=== PATIENT | male | born 1955 | race Caucasian/White ===

== ENCOUNTER → 2016-07-22 | Outpatient (CLI) | payer OTHER ==
[~2016-07-22] MED LIST: ALBUMIN 25% 100 ML SOLN IV ONE; LIDOCAINE 1% 30 ML SDV ONE; NA BICARBONATE 50 MEQ/50 ML VIAL ONE; PROPOFOL 200 MG/20 ML VIAL ONE
--- NOTE | 2016-07-22 19:14 | US ---
Pathology shows no evidence of malignancy.
== END ==
LOC: FIMAGING 12:54
PROVIDERS: ATTEND Internal Medicine
PROC: 0W9F3ZZ Drainage of Abdominal Wall, Percutaneous Approach (ICD-10-PCS; principal; 2016-07-22)
DX: R18.8 Other ascites (principal); D69.6 Thrombocytopenia, unspecified
CPT/HCPCS: 49083; 88161; J2704; P9047

== ENCOUNTER 2016-08-02 14:47 | Emergency (ER) | payer OTHER ==
[2016-08-02 15:09] VITALS: RESP 18
--- NOTE | 2016-08-02 16:44 | EDPHY ---
H & P Time Seen by Provider: 08/02/16 16:44 HPI/ROS: CHIEF COMPLAINT: I need my stomach drained HISTORY OF PRESENT ILLNESS: This 60-year-old man has cirrhosis and recently had a paracentesis on July 22. 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 He presents to the emergency department with severe abdominal distention resulting in moderate discomfort and difficulty breathing due to pressure on his diaphragm. He denies any cesilia abdominal pain or fever or melena. Symptoms are similar worse than when he was drained 11 days ago. REVIEW OF SYSTEMS: Eye: no change in vision ENT: no sore throat Cardiac: no chest pain or syncope Pulmonary: No cough or hemoptysis. Normal sentences. Abdomen: No vomiting or diarrhea. Musculoskeletal: no back pain Skin: no rash Neuro: no headache Constitutional: no fever : no urinary symptoms A comprehensive 10 point review of systems is otherwise negative aside from elements mentioned in the history of present illness. PAST MEDICAL HISTORY: Discharge summary dated 07/08/2016 reviewed by myself. Includes ascites secondary to cryptogenic cirrhosis, insulin-dependent diabetes , chronic coagulopathy and pancytopenia, history of esophageal varices. Social history: Here with his spouse. General Appearance: Alert and conversant, cooperative. Eyes: No scleral icterus. ENT, Mouth: Normal mucous membranes. Respiratory: Normal respiratory effort, breath sounds equal, lungs are clear to auscultation. Cardiovascular: Regular rate and rhythm. Gastrointestinal: Abdomen is massively distended with probable ascites but without rebound or guarding. Nontender. Neurological: Alert and oriented x3. Normally conversant. Face symmetric, normal movement and sensation in all extremities. Skin: Warm and dry, no rashes. Musculoskeletal: No peripheral edema and no joint swelling. Psychiatric: Not agitated. Emergency Department course/MDM: Labs performed to include coags and CBC. Platelet count noted 46,000. Patient would like to have paracentesis and then be discharged. Clinically does not have abdominal pain or tenderness or elevated temperature to suggest bacterial peritonitis. White blood cell count is similar to previous. Discussed with Dr. Livingston, [id number]. Patient had approximately [address] Livingston; he received 50 g of IV albumin afterwards at her recommendation, and then was discharged. Smoking Status: Former smoker Constitutional: Initial Vital Signs Temperature (C) 36.5 C 08/02/16 15:06 Heart Rate 95 08/02/16 15:06 Respiratory Rate 18 08/02/16 15:06 Blood Pressure 154/67 H 08/02/16 15:06 O2 Sat (%) 98 08/02/16 15:06 O2 Delivery Mode Room Air Allergies/Adverse Reactions: No Known Allergies Allergy (Verified 08/02/16 15:05) Home Medications: Medication Instructions Recorded Ferrous Sulfate [Ferrous Sulf 325 325 mg PO DAILY 12/16/15 MG (*)] Furosemide [Lasix 80 MG (*)] 80 mg PO DAILY 12/16/15 Pantoprazole Sodium [Protonix 40mg 20 mg PO BID 12/16/15 (*)] Ranitidine HCl [Zantac] 150 mg PO BID 12/16/15 Simvastatin [Zocor] 40 mg PO HS 12/16/15 Spironolactone [Aldactone 25 MG 150 mg PO DAILY 12/16/15 (*)] Venlafaxine Xr [Effexor Xr 75MG 75 mg PO DAILY 12/16/15 (*)] Propranolol HCl [Inderal 20mg (*)] 20 mg PO BID 07/04/16 Insulin Glargine [Lantus 100 70 units SC TID #1 ml 07/08/16 UNITS/ML (*)] Insulin Lispro [humALOG LISPRO 100 60 unit SC TIDMEAL #1 unit 07/08/16 units/ml (*)] Medical Decision Making Differential Diagnosis: Differential considered including but not limited to bowel obstruction, ascites , bacterial peritonitis, anasarca. - Data Points Laboratory Results: Laboratory Results 08/02/16 16:50 08/02/16 16:58 08/02/16 08/02/16 08/02/16 17:20 17:00 16:58 WBC RBC Hgb Hct MCV MCH MCHC RDW Plt Count MPV Neut % (Auto) Lymph % (Auto) [place] % (Auto) Eos % (Auto) Baso % (Auto) Nucleat RBC Rel Count Absolute Neuts (auto) Absolute Lymphs (auto) Absolute Monos (auto) Absolute Eos (auto) Absolute Basos (auto) Absolute Nucleated RBC Immature Gran % Immature Gran # Platelet Estimate PT 17.7 H SEC (12.0-15.0) INR 1.46 H (0.83-1.16) APTT 23.6 SEC (23.0-38.0) Sodium 136 mEq/L (134-144) Potassium 4.2 mEq/L (3.5-5.2) Chloride 101 mEq/L (97-110) Carbon Dioxide 23 mEq/l (22-31) Anion Gap 12 mEq/L (8-16) BUN 17 mg/dL (7-23) Creatinine 0.8 mg/dL (0.7-1.3) Estimated GFR > 60 Glucose 310 H mg/dL (70-100) Calcium 8.8 mg/dL (8.5-10.4) 08/02/16 16:50 WBC 2.61 L 10^3/uL (3.80-9.50) RBC 3.29 L 10^6/uL (4.40-6.38) Hgb 10.7 L g/dL (13.7-17.5) Hct 33.0 L % (40.0-51.0) MCV 100.3 H fL (81.5-99.8) MCH 32.5 pg (27.9-34.1) MCHC 32.4 g/dL (32.4-36.7) RDW 15.3 H % (11.5-15.2) Plt Count 46 L 10^3/uL (150-400) MPV 11.4 fL (8.7-11.7) Neut % (Auto) 56.3 % (39.3-74.2) Lymph % (Auto) 23.8 % (15.0-45.0) [place] % (Auto) 11.5 % (4.5-13.0) Eos % (Auto) 6.9 % (0.6-7.6) Baso % (Auto) 1.1 % (0.3-1.7) Nucleat RBC Rel Count 0.0 % (0.0-0.2) Absolute Neuts (auto) 1.47 L 10^3/uL (1.70-6.50) Absolute Lymphs (auto) 0.62 L 10^3/uL (1.00-3.00) Absolute Monos (auto) 0.30 10^3/uL (0.30-0.80) Absolute Eos (auto) 0.18 10^3/uL (0.03-0.40) Absolute Basos (auto) 0.03 10^3/uL (0.02-0.10) Absolute Nucleated RBC 0.00 10^3/uL (0-0.01) Immature Gran % 0.4 % (0.0-1.1) Immature Gran # 0.01 10^3/uL (0.00-0.10) Platelet Estimate DECREASED L (ADEQ) PT INR APTT Sodium Potassium Chloride Carbon Dioxide Anion Gap BUN Creatinine Estimated GFR Glucose Calcium Medications Given: Discontinued Medications Albumin Human (Flexbumin 25 % (Premix)) 200 mls @ 0 mls/hr IV ONCE ONE PRN Reason: As Directed Stop: 08/02/16 18:19 Last Admin: 08/02/16 19:45 Dose: 200 mls Departure - Departure Disposition: Home, Routine, Self-Care Clinical Impression: Ascites Qualifiers: Ascites type: other type Qualifier Code: (R18.8) Other ascites Condition: Good Instructions: Ascites (ED) Referrals: Curt Lawler [Primary Care Provider] - As per Instructions
[2016-08-02 17:05] LABS: % IMMATURE GRANULYOCYTES 0.4 % (0.0-1.1); ABSOLUTE IMMATURE GRANULOCYTES 0.01 10^3/uL (0.00-0.10); ADD DIFF? NO; ADD MORPH? NO; ADD SCAN? NO; ATYPICAL LYMPHOCYTE FLAG 30 (0-99); FRAGMENT RBC FLAG 0 (0-99); HEMOGLOBIN 10.7 g/dL (13.7-17.5); LEFT SHIFT FLG 0 (0-99); LIPEMIA HEMOLYSIS FLAG 80 (0-99); MEAN CELL HEMOGLOBIN 32.5 pg (27.9-34.1); MEAN CELL HEMOGLOBIN CONCENTR. 32.4 g/dL (32.4-36.7); MEAN CELL VOLUME 100.3 fL (81.5-99.8); MEAN PLATELET VOLUME 11.4 fL (8.7-11.7); PLATELET CLUMPS FLAG 10 (0-99); RED BLOOD CELL COUNT 3.29 10^6/uL (4.40-6.38); RED CELL DISTRIBUTION WIDTH 15.3 % (11.5-15.2)
[2016-08-02 17:06] LABS: PLATELET COUNT 46 10^3/uL (150-400)
[2016-08-02 17:38] LABS: ANION GAP 12 mEq/L (8-16); CALCIUM 8.8 mg/dL (8.5-10.4); CARBON DIOXIDE 23 mEq/l (22-31); CHLORIDE 101 mEq/L (97-110); CREATININE 0.8 mg/dL (0.7-1.3); GLOMERULAR FILTRATION RATE > 60; GLUCOSE 310 mg/dL (70-100); POTASSIUM 4.2 mEq/L (3.5-5.2); SODIUM 136 mEq/L (134-144)
[2016-08-02 17:51] LABS: INR 1.46 (0.83-1.16); PROTIME(PATIENT) 17.7 SEC (12.0-15.0)
[2016-08-02 18:01] LABS: PLATELET ESTIMATE DECREASED (ADEQ)
[2016-08-02] MEDS ORDERED: ALBUMIN 25% 200 ML IV ONE (18:18)
[2016-08-02 20:28] VITALS: BP 141/70; PULSE 85; TEMP 99.3; O2SAT 94
--- NOTE | 2016-08-03 09:12 | US ---
Ultrasound-Guided Paracentesis INDICATION: Large volume recurrent paracentesis needed. Informed consent: Obtained from the patient. Risks and benefits were discussed. Cross Cutting Measure: Patient's current list of medications including all known prescriptions, over -the-counters, herbals, and vitamin/mineral/dietary supplements are reviewed. Medications' name, dos age, frequency, and route of administration are confirmed. Patient is a nonsmoker. Prophylactic Antibiotic: Cefazolin was not ordered and administered for antimicrobial prophylaxis be cause it was not medically necessary. VTE Prophylaxis: There is not an order for VTE prophylaxis to be given within 24 hours of the proced ure end time. VTE prophylaxis was not given because it was not medically necessary. Technique: Patient is placed in supine position. A "timeout" procedure was performed to identify th e correct patient and the correct procedure. 1% Xylocaine was used for local anesthetic. All eleme nts of maximal sterile barrier technique including cap, mask, sterile gown, sterile gloves, large erin rile sheet, hand hygiene, and 2% chlorhexidine for cutaneous antisepsis, followed. Ultrasound evaluation of potential access site was performed. A permanent recording was created for t he patient's record. When ultrasound is used, sterile gel and probe covers are used. Right lower quadrant approach is chosen. A 6-Syrian Yueh needle was inserted into the ascites under u ltrasound guidance. 6.5 liters of milky cloudy fluid were aspirated. Patient tolerated the procedure well. Post paracentesis ultrasound does not show any residual fluid. IMPRESSION: Right lower quadrant paracentesis done, yielding 6.5 liters.
== END 2016-08-02 20:28 | disposition home or self-care (01) ==
DX: R18.8 Other ascites (principal); E11.9 Type 2 diabetes mellitus without complications; Z79.4 Long term (current) use of insulin; Z87.891 Personal history of nicotine dependence
CPT/HCPCS: 96365; P9047

== ENCOUNTER → 2016-08-16 | Outpatient (CLI) | payer OTHER ==
[~2016-08-16] MED LIST changes: -LIDOCAINE 1% 30 ML SDV ONE; -PROPOFOL 200 MG/20 ML VIAL ONE
--- NOTE | 2016-08-16 13:16 | US ---
Ultrasound-Guided Paracentesis at 1045 hours History: Ascites. Cirrhosis. R 18.8 Consent: After the risks, benefits, and alternatives of ultrasound-guided paracentesis were explained to the patient and all questions were answered, witnessed informed consent was obtained for ultrasou nd-guided paracentesis. Timeout performed. Procedure: Ultrasound guidance was utilized to locate a large pocket of ascites in the right lower qu adrant of the abdomen. Skin was prepped with ChloraPrep solution. Lidocaine with bicarbonate was use d for local anesthesia. Then, a 5-Upper Sorbian ReliSen catheter was advanced with ultrasound guidance into the ascites. The needle was removed. Catheter was left in place while 7800 mL of yellow ascites were re moved. Catheter removed at the end of the procedure. Patient was given intravenous albumin after the procedure. Discharge instructions were given. Patient tolerated the procedure well without immediate complicatio ns. Impression: Successful ultrasound-guided paracentesis. 7.8 L of ascites removed. Crosscutting Measure #226: Current tobacco user: NO..
== END ==
LOC: FIMAGING 09:14
PROVIDERS: ATTEND Internal Medicine
PROC: 0W9G3ZZ Drainage of Peritoneal Cavity, Percutaneous Approach (ICD-10-PCS; principal; 2016-08-16)
DX: R18.8 Other ascites (principal)
CPT/HCPCS: 49083; P9047

== ENCOUNTER → 2016-08-27 | Outpatient (CLI) | payer OTHER ==
[~2016-08-27] MED LIST changes: +ALBUMIN 25% 50 ML SOLN IV ONE; +LIDOCAINE 1% 30 ML SDV ONE
== END ==
LOC: FIMAGING 08:42
PROVIDERS: ATTEND Internal Medicine
DX: R18.8 Other ascites (principal); I81 Portal vein thrombosis; R06.02 Shortness of breath; K74.60 Unspecified cirrhosis of liver; R16.2 Hepatomegaly with splenomegaly, not elsewhere classified
CPT/HCPCS: 76705; 93975; P9047

== ENCOUNTER → 2016-09-10 | Outpatient (CLI) | payer OTHER ==
[2016-09-10 14:13] VITALS: BP 144/70; PULSE 85; RESP 20; TEMP 97.5; O2SAT 95
--- NOTE | 2016-09-10 14:47 | EDPHY ---
ED Progress Note Narrative: 60-year-old male presents to the emergency department with his . The patient has a history of multiple medical problems including cryptogenic cirrhosis requiring paracentesis. The patient typically has paracentesis about every 2 weeks. He last had a paracentesis on August 27, 2016 and had over 7 L drained. The patient had blood drawn yesterday as he typically does prior to having a paracentesis. The patient has not had any fevers or chills. They were waiting over in the imaging waiting room and someone told him that his platelet count was too low to have the paracentesis. He was sent to the emergency department for evaluation. Upon arrival in the emergency department I did review this patient's laboratory studies from yesterday. [place] [address]. The last time he had a paracentesis 2 weeks ago it was 38,000. He is chronically thrombocytopenic. His hematocrit was 29% and he has been chronically anemic. His sodium was normal yesterday. His INR was 1.48. I spoke with Dr. Livingston who was aware of this patient and has perform paracentesis on this patient in the past. She is happy to take him for paracentesis today. She asked that he go back to the imaging waiting room and they will do the paracentesis now. I explained to the patient that upon reviewing his laboratory studies, [place] [address]. Dr. Livingston is comfortable performing paracentesis now. The patient and his verbalized understanding and agreed. He will be depart from the emergency department. Laboratory studies were not repeated in the emergency department. This was discussed with Dr. Garcia, secondary supervising physician, who did not evaluate the patient but agrees with plan of discharging from the emergency department and going directly to ultrasound for paracentesis.
== END ==
LOC: FIMAGING 13:22 → EDSTATUS 14:00 → FIMAGING 14:48
PROVIDERS: ATTEND Emergency Medicine
PROC: 0D9W3ZZ Drainage of Peritoneum, Percutaneous Approach (ICD-10-PCS; principal; 2016-09-10)
DX: K74.69 Other cirrhosis of liver (principal); R18.8 Other ascites

== ENCOUNTER → 2016-09-17 | Outpatient (CLI) | payer OTHER ==
[~2016-09-17] MED LIST changes: -ALBUMIN 25% 50 ML SOLN IV ONE; -LIDOCAINE 1% 30 ML SDV ONE
== END ==
LOC: FIMAGING 12:24
PROVIDERS: ATTEND Internal Medicine
PROC: 0W9G3ZZ Drainage of Peritoneal Cavity, Percutaneous Approach (ICD-10-PCS; principal; 2016-09-17)
DX: R18.8 Other ascites (principal); E11.9 Type 2 diabetes mellitus without complications; I10 Essential (primary) hypertension; K74.60 Unspecified cirrhosis of liver
CPT/HCPCS: 49083; P9047

== ENCOUNTER 2016-09-24 14:08 | Emergency (ER) | payer OTHER ==
--- NOTE | 2016-09-24 14:37 | EDPHY ---
H & P Time Seen by Provider: 09/24/16 14:20 HPI/ROS: CHIEF COMPLAINT: "I need a pericentesis" HISTORY OF PRESENT ILLNESS: The patient is a 60-year-old male with multiple medical problems including cryptogenic cirrhosis. This requires recurrent paracentesis. His last paracentesis was 09/17/2016. He has a "standing order every 2 weeks." Patient feels as though he has had increasing shortness of breath and he is not tolerating it. He needs paracentesis sooner. He reports that his platelets are always low. He denies any fevers or chills. No nausea or vomiting. Patient has a chronic nonproductive cough that is unchanged REVIEW OF SYSTEMS: My complete review of systems is negative except as mentioned in the HPI. Past Medical/Surgical History: Includes coronary artery disease, diabetes, hypertension, hyperlipidemia, cryptogenic cirrhosis, esophageal variceal bleeding Past surgical history: Includes esophageal banding, stent placement Social history: The patient is here with his . He does not smoke. He does not drink alcohol. Smoking Status: Former smoker Physical Exam: Vitals noted. 151/67, 84, 16, 37.5, 98% on room air GENERAL: No acute distress, alert. HEENT: Eyes normal to inspection, no jaundice, normal pharynx, no signs of dehydration. NECK: No thyromegaly, no lymphadenopathy, supple. RESPIRATORY: Clear to auscultation bilaterally, no rales, rhonchi or wheezing. CVS: Regular rate and rhythm, no rubs, murmurs, or gallops. ABDOMEN: Soft, distended, no organomegaly. No focal tenderness to palpation BACK: Normal to inspection, no CVA tenderness. SKIN: Normal color, no rash, warm, dry. No pallor. EXTREMITIES: Mild bilateral pedal edema, no calf tenderness, no Homans sign or cords, no joint swelling. NEURO/PSYCH: Alert and oriented x3, normal mood and affect, normal motor sensory exam. Constitutional: Initial Vital Signs Temperature (C) 37.5 C 09/24/16 14:15 Heart Rate 84 09/24/16 14:15 Respiratory Rate 16 09/24/16 14:15 Blood Pressure 151/67 H 09/24/16 14:15 O2 Sat (%) 98 09/24/16 14:15 O2 Delivery Mode Room Air Allergies/Adverse Reactions: No Known Allergies Allergy (Verified 09/10/16 14:10) Home Medications: Medication Instructions Recorded Ferrous Sulfate [Ferrous Sulf 325 325 mg PO DAILY 12/16/15 MG (*)] Furosemide [Lasix 80 MG (*)] 80 mg PO DAILY 12/16/15 Pantoprazole Sodium [Protonix 40mg 20 mg PO BID 12/16/15 (*)] Ranitidine HCl [Zantac] 150 mg PO BID 12/16/15 Simvastatin [Zocor] 40 mg PO HS 12/16/15 Spironolactone [Aldactone 25 MG 150 mg PO DAILY 12/16/15 (*)] Venlafaxine Xr [Effexor Xr 75MG 75 mg PO DAILY 12/16/15 (*)] Propranolol HCl [Inderal 20mg (*)] 20 mg PO BID 07/04/16 Insulin Glargine [Lantus 100 70 units SC TID #1 ml 07/08/16 UNITS/ML (*)] Insulin Lispro [humALOG LISPRO 100 60 unit SC TIDMEAL #1 unit 07/08/16 units/ml (*)] Medical Decision Making ED Course/Re-evaluation: In the emergency department I discussed the plan with the patient answered all her questions. Laboratory studies were ordered. I reviewed the patient's previous medical record. I contacted Radiology. They stated that her platelets are generally low. Only Dr. Rushing performed the procedure with low platelets. The other radiologist here would prefer transfusion. A type and screen was ordered. I rechecked the patient on numerous occasions. He was stable throughout his stay. Patient's laboratory studies were abnormal. He was anemic with with hematocrit 28. Platelets were low at 29. Patient had a low white count at 2. Patient's INR was 1.5. Elevated LFTs. I discussed the case with Dr. Guevara from Radiology. I reviewed the laboratory studies and his hematocrit and platelet counts. He feels comfortable having the patient be discharged from the emergency department to [facility] for the procedure. I discussed this plan with patient and his . They felt comfortable with this plan. Differential Diagnosis: Differential includes but is not limited to ascites, peritonitis, bacteremia, sepsis, CHF, pneumonia, ACS, acute [place] - Data Points Laboratory Results: Laboratory Results 09/24/16 14:30 09/24/16 14:30 09/24/16 09/24/16 09/24/16 14:30 14:30 14:30 WBC 2.58 10^3/uL L 10^3/uL (3.80-9.50) RBC 2.90 10^6/uL L 10^6/uL (4.40-6.38) Hgb 9.0 g/dL L g/dL (13.7-17.5) Hct 28.5 % L % (40.0-51.0) MCV 98.3 fL fL (81.5-99.8) MCH 31.0 pg pg (27.9-34.1) MCHC 31.6 g/dL L g/dL (32.4-36.7) RDW 15.2 % % (11.5-15.2) Plt Count 29 10^3/uL L* 10^3/uL (150-400) MPV 10.6 fL fL (8.7-11.7) Neut % (Auto) 65.5 % % (39.3-74.2) Lymph % (Auto) 18.2 % % (15.0-45.0) [place] % (Auto) 9.3 % % (4.5-13.0) Eos % (Auto) 5.4 % % (0.6-7.6) Baso % (Auto) 1.2 % % (0.3-1.7) Nucleat RBC Rel Count 0.0 % % (0.0-0.2) Absolute Neuts (auto) 1.69 10^3/uL L 10^3/uL (1.70-6.50) Absolute Lymphs (auto) 0.47 10^3/uL L 10^3/uL (1.00-3.00) Absolute Monos (auto) 0.24 10^3/uL L 10^3/uL (0.30-0.80) Absolute Eos (auto) 0.14 10^3/uL 10^3/uL (0.03-0.40) Absolute Basos (auto) 0.03 10^3/uL 10^3/uL (0.02-0.10) Absolute Nucleated RBC 0.00 10^3/uL 10^3/uL (0-0.01) Immature Gran % 0.4 % % (0.0-1.1) Immature Gran # 0.01 10^3/uL 10^3/uL (0.00-0.10) Platelet Estimate DECREASED L (ADEQ) Smear Review By Pending PT 18.5 SEC H SEC (12.0-15.0) INR 1.54 H (0.83-1.16) APTT 33.2 SEC SEC (23.0-38.0) Sodium 134 mEq/L mEq/L (134-144) Potassium 4.3 mEq/L mEq/L (3.5-5.2) Chloride 101 mEq/L mEq/L (97-110) Carbon Dioxide 22 mEq/l mEq/l (22-31) Anion Gap 11 mEq/L mEq/L (8-16) BUN 14 mg/dL mg/dL (7-23) Creatinine 0.8 mg/dL mg/dL (0.7-1.3) Estimated GFR > 60 Glucose 487 mg/dL H mg/dL (70-100) Calcium 9.0 mg/dL mg/dL (8.5-10.4) Total Bilirubin 2.7 mg/dL H mg/dL (0.1-1.4) Conjugated Bilirubin 0.7 mg/dL H mg/dL (0.0-0.5) Unconjugated Bilirubin 2.0 mg/dL H mg/dL (0.0-1.1) AST 39 IU/L IU/L (17-59) ALT 44 IU/L IU/L (21-72) Alkaline Phosphatase 138 IU/L H IU/L (38-126) Total Protein 7.4 g/dL g/dL (6.3-8.2) Albumin 3.5 g/dL g/dL (3.5-5.0) Lipase 126.0 IU/L IU/L (23-300) Departure - Departure Disposition: Home, Routine, Self-Care Clinical Impression: Thrombocytopenia Ascites Qualifiers: Ascites type: other type Qualified Code(s): R18.8 - Other ascites Condition: Good Instructions: Ascites (ED), Thrombocytopenia (ED) Additional Instructions: Return to the emergency department with lightheadedness, dizziness, chest pain, shortness of breath, abdominal pain, fever, chills or any other concerns. Referrals: Curt Lawler [Primary Care Provider] - 3-4 days, if not improved
[2016-09-24 14:54] LABS: % IMMATURE GRANULYOCYTES 0.4 % (0.0-1.1); ABSOLUTE IMMATURE GRANULOCYTES 0.01 10^3/uL (0.00-0.10); ADD DIFF? NO; ADD MORPH? NO; ADD SCAN? NO; ATYPICAL LYMPHOCYTE FLAG 20 (0-99); FRAGMENT RBC FLAG 0 (0-99); HEMATOCRIT 28.5 % (40.0-51.0); LEFT SHIFT FLG 0 (0-99); LIPEMIA HEMOLYSIS FLAG 80 (0-99); MEAN CELL HEMOGLOBIN CONCENTR. 31.6 g/dL (32.4-36.7); MEAN CELL VOLUME 98.3 fL (81.5-99.8); MEAN PLATELET VOLUME 10.6 fL (8.7-11.7); PLATELET CLUMPS FLAG 0 (0-99); RED CELL DISTRIBUTION WIDTH 15.2 % (11.5-15.2)
[2016-09-24 15:02] LABS: ALANINE AMINOTRANSFERASE 44 IU/L (21-72); ALBUMIN 3.5 g/dL (3.5-5.0); ALKALINE PHOSPHATASE 138 IU/L (38-126); ANION GAP 11 mEq/L (8-16); ASPARTATE AMINOTRANSFERASE 39 IU/L (17-59); BILIRUBIN,TOTAL 2.7 mg/dL (0.1-1.4); BILIRUBIN-CONJUGATED 0.7 mg/dL (0.0-0.5); CARBON DIOXIDE 22 mEq/l (22-31); CHLORIDE 101 mEq/L (97-110); CREATININE 0.8 mg/dL (0.7-1.3); GLOMERULAR FILTRATION RATE > 60; GLUCOSE 487 mg/dL (70-100); POTASSIUM 4.3 mEq/L (3.5-5.2); SODIUM 134 mEq/L (134-144); TOTAL PROTEIN 7.4 g/dL (6.3-8.2)
[2016-09-24 15:20] LABS: APTT 33.2 SEC (23.0-38.0); INR 1.54 (0.83-1.16); PROTIME(PATIENT) 18.5 SEC (12.0-15.0)
[2016-09-24 15:28] LABS: PLATELET COUNT 29 10^3/uL (150-400)
[2016-09-24 15:30] LABS: PLATELET ESTIMATE DECREASED (ADEQ)
[2016-09-24 15:33] VITALS: BP 155/73; PULSE 84; RESP 16; TEMP 98.1; O2SAT 98
[2016-09-24] MEDS ORDERED: LIDOCAINE 1% 30 ML SDV ONE (15:38)
[2016-09-24] MEDS ORDERED: NA BICARBONATE 50 MEQ/50 ML VIAL ONE (15:38)
== END 2016-09-24 15:54 | disposition home or self-care (01) ==
DX: R18.8 Other ascites (principal); D69.6 Thrombocytopenia, unspecified; I10 Essential (primary) hypertension; E11.9 Type 2 diabetes mellitus without complications; I25.10 Atherosclerotic heart disease of native coronary artery without angina pectoris; Z95.5 Presence of coronary angioplasty implant and graft; Z87.891 Personal history of nicotine dependence; Z79.4 Long term (current) use of insulin

== ENCOUNTER → 2016-09-24 | Outpatient (CLI) | payer OTHER ==
[~2016-09-24] MED LIST changes: -NA BICARBONATE 50 MEQ/50 ML VIAL ONE
== END ==
LOC: FIMAGING 16:14
PROVIDERS: ATTEND Internal Medicine
PROC: 0W9G3ZZ Drainage of Peritoneal Cavity, Percutaneous Approach (ICD-10-PCS; principal; 2016-09-24)
DX: R18.8 Other ascites (principal)
CPT/HCPCS: 49083; P9047

== ENCOUNTER 2016-10-04 10:03 | Observation (INO) | payer OTHER ==
[2016-10-04 11:16] LABS: % IMMATURE GRANULYOCYTES 0.4 % (0.0-1.1); ABSOLUTE IMMATURE GRANULOCYTES 0.01 10^3/uL (0.00-0.10); ADD DIFF? NO; ADD MORPH? NO; ADD SCAN? NO; ATYPICAL LYMPHOCYTE FLAG 40 (0-99); FRAGMENT RBC FLAG 40 (0-99); HEMATOCRIT 29.7 % (40.0-51.0); HEMOGLOBIN 9.5 g/dL (13.7-17.5); LEFT SHIFT FLG 0 (0-99); LIPEMIA HEMOLYSIS FLAG 80 (0-99); MEAN CELL HEMOGLOBIN 30.3 pg (27.9-34.1); MEAN CELL VOLUME 94.6 fL (81.5-99.8); MEAN PLATELET VOLUME 11.7 fL (8.7-11.7); PLATELET CLUMPS FLAG 0 (0-99); RED BLOOD CELL COUNT 3.14 10^6/uL (4.40-6.38); RED CELL DISTRIBUTION WIDTH 14.8 % (11.5-15.2)
[2016-10-04 11:21] LABS: PLATELET COUNT 37 10^3/uL (150-400)
[2016-10-04 11:25] LABS: ALANINE AMINOTRANSFERASE 40 IU/L (21-72); ALBUMIN 3.4 g/dL (3.5-5.0); ALKALINE PHOSPHATASE 143 IU/L (38-126); ANION GAP 7 mEq/L (8-16); ASPARTATE AMINOTRANSFERASE 32 IU/L (17-59); BILIRUBIN,TOTAL 2.2 mg/dL (0.1-1.4); BILIRUBIN-CONJUGATED 0.6 mg/dL (0.0-0.5); BILIRUBIN-UNCONJUGATED 1.6 mg/dL (0.0-1.1); CALCIUM 8.8 mg/dL (8.5-10.4); CARBON DIOXIDE 23 mEq/l (22-31); CHLORIDE 105 mEq/L (97-110); CREATININE 0.8 mg/dL (0.7-1.3); GLOMERULAR FILTRATION RATE > 60; GLUCOSE 257 mg/dL (70-100); POTASSIUM 4.3 mEq/L (3.5-5.2); SODIUM 135 mEq/L (134-144); TOTAL PROTEIN 7.2 g/dL (6.3-8.2)
[2016-10-04 11:27] LABS: INR 1.45 (0.83-1.16); PROTIME(PATIENT) 17.6 SEC (12.0-15.0)
[2016-10-04 11:28] LABS: APTT 33.1 SEC (23.0-38.0)
[2016-10-04 12:02] LABS: PLATELET ESTIMATE DECREASED (ADEQ)
[2016-10-04] MEDS ORDERED: ERTAPENEM 1 GM in NS 100 ML IV ONE (12:15)
[2016-10-04] MEDS ORDERED: fentaNYL 100 MCG/2 ML INJ ONE ×3 (12:47→16:33)
[2016-10-04] MEDS ORDERED: PROPOFOL 200 MG/20 ML VIAL ONE (12:49)
[2016-10-04] MEDS ORDERED: LIDOCAINE 2% 5 ML SDV ONE (12:52)
[2016-10-04] MEDS ORDERED: ONDANSETRON 4 MG/2 ML VIAL ONE (12:52)
[2016-10-04] MEDS ORDERED: SUCCINYLCHOLINE CHLORIDE*ANESTHESIA ONLY*200 MG/10 ML SYR IVP ONE (12:53)
[2016-10-04] MEDS ORDERED: ALBUMIN 25% 100 ML SOLN IV ONE (13:08)
[2016-10-04] MEDS ORDERED: ALBUMIN 25% 50 ML SOLN IV ONE (13:08)
[2016-10-04] MEDS ORDERED: ONDANSETRON DISINTEGRATING 4 MG TAB PO PRN (13:37)
[2016-10-04] MEDS ORDERED: ONDANSETRON 4 MG/2 ML VIAL IVP PRN (13:37)
[2016-10-04] MEDS ORDERED: oxyCODONE IR 5 MG TAB PO PRN (13:37)
[2016-10-04] MEDS ORDERED: ROCURONIUM 50 MG/5 ML VIAL ONE ×2 (14:19→16:01)
[2016-10-04] MEDS ORDERED: FUROSEMIDE 20 MG/2 ML VIAL ONE ×2 (14:47→15:05)
--- NOTE | 2016-10-04 15:20 | PDGENHP ---
History and Physical - Chief Complaint Acute abdominal distention - History of Present Illness Primary digital x ray service engineer: Dr. Lawler HPI: 60-year-old male presenting with acute worsening of his abdominal distension characterized as enlarging belly with chronic loose bowel movements. Bowel movements are characterized as brownish in color with onset approximately 2 years ago. Duration has been persistent thereafter. The patient reports that his abdominal distention has been progressively worsening since his last paracentesis on 09/24/2016. The patient routinely gets weekly paracenteses and these alleviate his abdominal distention. He denies any overt abdominal pain, denies any fevers, denies any dysuria or urinary changes, denies any cough or shortness of breath. He has otherwise been taking all of his home medications, and he is presenting today for a scheduled TIPS procedure. History Information - Allergies/Home Medication List Allergies/Adverse Reactions: No Known Allergies Allergy (Verified 09/10/16 14:10) Home Medications: Ferrous Sulfate [Ferrous Sulf 325 MG (*)] 325 mg PO DAILY 12/16/15 [Last Taken 07/03/16] Furosemide [Lasix 80 MG (*)] 80 mg PO DAILY 12/16/15 [Last Taken 07/03/16] Pantoprazole Sodium [Protonix 40mg (*)] 20 mg PO BID 12/16/15 [Last Taken 21:00] Ranitidine HCl [Zantac] 150 mg PO BID 12/16/15 [Last Taken 07/03/16 21:00] Simvastatin [Zocor] 40 mg PO HS 12/16/15 [Last Taken 07/03/16] Spironolactone [Aldactone 25 MG (*)] 150 mg PO DAILY 12/16/15 [Last Taken ] Venlafaxine Xr [Effexor Xr 75MG (*)] 75 mg PO DAILY 12/16/15 [Last Taken ] Propranolol HCl [Inderal 20mg (*)] 20 mg PO BID 07/04/16 [Last Taken 07/03/16 21 :00] I have personally reviewed and updated: family history, medical history, social history, surgical history Past Medical History: 1. Cryptogenic cirrhosis. 2. coronary artery disease status post PCI with 2 stents. 3. Diabetes mellitus. 4. Hypertension. 5. Hyperlipidemia. 6. esophageal variceal bleeding status post banding - Surgical History Additional surgical history: PCI with 2 stents. Pacemaker placement. Multiple paracentesis procedures - Family History Additional family history: No Recent sick family contacts - Social History Smoking Status: Former smoker Alcohol Use: None Drug Use: None Additional social history: Normally independent in his ADLs Review of Systems ROS: 10pt was reviewed & negative except for what was stated in HPI & below Gastrointestinal: Reports: diarrhea, other (Abdominal distention) Physical Exam Constitutional: no apparent distress, not in pain, chronically ill appearing, No uncomfortable Eyes: PERRL, anicteric sclera, EOMI Ears, Nose, Mouth, Throat: moist mucous membranes, hearing normal, ears appear normal, no oral mucosal ulcers Cardiovascular: regular rate and rhythym, no murmur, rub, or gallop, No edema Respiratory: no respiratory distress, no rales or rhonchi, clear to auscultation Gastrointestinal: normoactive bowel sounds, distension (Moderate abdominal distention), No tenderness, No guarding Neurologic: AAOx3, sensation intact bilaterally, No asterixes Psychiatric: interacting appropriately, not anxious, not encephalopathic, thought process linear Lab Data & Imaging Review 10/04/16 14:26 10/04/16 10:56 WBC 2.78 10^3/uL (3.80-9.50) L 10/04/16 10:56 RBC 3.14 10^6/uL (4.40-6.38) L 10/04/16 10:56 Hgb 9.5 g/dL (13.7-17.5) L 10/04/16 10:56 Hct 29.7 % (40.0-51.0) L 10/04/16 10:56 MCV 94.6 fL (81.5-99.8) 10/04/16 10:56 MCH 30.3 pg (27.9-34.1) 10/04/16 10:56 MCHC 32.0 g/dL (32.4-36.7) L 10/04/16 10:56 RDW 14.8 % (11.5-15.2) 10/04/16 10:56 Plt Count 65 10^3/uL (150-400) L 10/04/16 14:26 MPV 11.7 fL (8.7-11.7) 10/04/16 10:56 Neut % (Auto) 59.0 % (39.3-74.2) 10/04/16 10:56 Lymph % (Auto) 21.9 % (15.0-45.0) 10/04/16 10:56 [place] % (Auto) 9.7 % (4.5-13.0) 10/04/16 10:56 Eos % (Auto) 7.9 % (0.6-7.6) H 10/04/16 10:56 Baso % (Auto) 1.1 % (0.3-1.7) 10/04/16 10:56 Nucleat RBC Rel Count 0.0 % (0.0-0.2) 10/04/16 10:56 Absolute Neuts (auto) 1.64 10^3/uL (1.70-6.50) L 10/04/16 10:56 Absolute Lymphs (auto) 0.61 10^3/uL (1.00-3.00) L 10/04/16 10:56 Absolute Monos (auto) 0.27 10^3/uL (0.30-0.80) L 10/04/16 10:56 Absolute Eos (auto) 0.22 10^3/uL (0.03-0.40) 10/04/16 10:56 Absolute Basos (auto) 0.03 10^3/uL (0.02-0.10) 10/04/16 10:56 Absolute Nucleated RBC 0.00 10^3/uL (0-0.01) 10/04/16 10:56 Immature Gran % 0.4 % (0.0-1.1) 10/04/16 10:56 Immature Gran # 0.01 10^3/uL (0.00-0.10) 10/04/16 10:56 Platelet Estimate DECREASED (ADEQ) L 10/04/16 10:56 PT 17.6 SEC (12.0-15.0) H 10/04/16 10:56 INR 1.45 (0.83-1.16) H 10/04/16 10:56 APTT 33.1 SEC (23.0-38.0) 10/04/16 10:56 Sodium 135 mEq/L (134-144) 10/04/16 10:56 Potassium 4.3 mEq/L (3.5-5.2) 10/04/16 10:56 Chloride 105 mEq/L (97-110) 10/04/16 10:56 Carbon Dioxide 23 mEq/l (22-31) 10/04/16 10:56 Anion Gap 7 mEq/L (8-16) L 10/04/16 10:56 BUN 17 mg/dL (7-23) 10/04/16 10:56 Creatinine 0.8 mg/dL (0.7-1.3) 10/04/16 10:56 Estimated GFR > 60 10/04/16 10:56 Glucose 257 mg/dL (70-100) H 10/04/16 10:56 Calcium 8.8 mg/dL (8.5-10.4) 10/04/16 10:56 Total Bilirubin 2.2 mg/dL (0.1-1.4) H 10/04/16 10:56 Conjugated Bilirubin 0.6 mg/dL (0.0-0.5) H 10/04/16 10:56 Unconjugated Bilirubin 1.6 mg/dL (0.0-1.1) H 10/04/16 10:56 AST 32 IU/L (17-59) 10/04/16 10:56 ALT 40 IU/L (21-72) 10/04/16 10:56 Alkaline Phosphatase 143 IU/L (38-126) H 10/04/16 10:56 Total Protein 7.2 g/dL (6.3-8.2) 10/04/16 10:56 Albumin 3.4 g/dL (3.5-5.0) L 10/04/16 10:56 Patient ABO/Rh A POSITIVE 10/04/16 10:56 Antibody Screen NEGATIVE 10/04/16 10:56 Assessment & Plan Assessment: 60-year-old male presents with acute on chronic abdominal distention in the setting of cryptogenic cirrhosis requiring a TIPS procedure Plan: 1. End stage liver disease. 2/2 cryptogenic cirrhosis. Resulting in a soft GI varices, requiring a TIPS procedure, performed today by Dr. Livingston -patient is at risk for SBP, discussed with Dr. Garcia recommended Invanz therapy with the procedure, will proceed with ceftriaxone 1 g daily for total of 5 days if patient remains hospitalized -if patient develops hypotension, would recommend checking blood count and potentially giving a fluid with albumin -review of outside records from 07/10/2016, discharge summary by Dr. Rene, reports that patient has not had SBP in the recent past but he has had chronic diarrhea most likely secondary to his chronic use of lactulose -ultrasound from 09/24/2016 demonstrated large volume ascites, with 7.[address] Stiles, utilizing 200 cc of albumin at that time 2. Pancytopenia. Secondary to end-stage liver disease, patient received 2 units of platelets enrike-operatively -repeat CBC this evening and transfuse if necessary -continue to monitor CBC daily 3. Diabetes mellitus. Chronic, continue with insulin sliding scale and avoid home medications given hypoglycemia 4. Hypoglycemia. Acute, glucose level 65, give half amp of D50 and recheck glucose levels 5. Coronary artery disease. Chronic, if patient develops chest pain, get EKG and troponin level Diet. Cardiac diet Prophylaxis. High risk patient, SCDs, pharm contraindicated given pancytopenia Code. Full Disposition. Anticipated discharge is 10/05/2016, pending stable post operative course.
[2016-10-04] MEDS ORDERED: D50W 25 GM/50 ML SYR IVP PRN ×2 (15:25→15:26)
[2016-10-04] MEDS ORDERED: DILTIAZEM 25 MG/5 ML VIAL IVP ONE (15:30)
[2016-10-04] MEDS ORDERED: IOPAMIDOL (ISOVUE-300) 100 ML BTL IV ONE ×3 (15:55→18:30)
[2016-10-04 16:28] LABS: HEMATOCRIT 22.4 % (40.0-51.0); HEMOGLOBIN 7.2 g/dL (13.7-17.5)
[2016-10-04] MEDS ORDERED: PHENYLEPHRINE HCL 100 MCG/ML SYR ONE (16:38)
[2016-10-04 17:29] LABS: HEMOGLOBIN 6.7 g/dL (13.7-17.5)
[2016-10-04] MEDS ORDERED: SUGAMMADEX SODIUM 200 MG/2 ML VIAL IVP ONE (18:44)
--- NOTE | 2016-10-04 19:03 | POSTOPPROG ---
Post Op Note Date of Operation: 10/04/16 Surgeon: Nicolle Livingston Anesthesiologist: Dr. Claire Anesthesia: GET(General Endotracheal) Pre-op Diagnosis: ESLD Post-op Diagnosis: SAME Indication: MASSIVE RECURRENT ASCITES Procedure: TIPS Findings: GRADIENT DECREASED FROM 17 TO 10 Inf/Abcess present in the surg proc area at time of surgery?: No Depth: Superfical (Skin SQ) EBL: 50-100 Complications: None immediately
[2016-10-04] MEDS ORDERED: NALOXONE HCL 0.4 MG/ML INJ IVP PRN (19:29)
[2016-10-04] MEDS ORDERED: fentaNYL 100 MCG/2 ML INJ IVP PRN (19:29)
--- NOTE | 2016-10-04 20:10 | CPEKG ---
Heart Rate: 74 RR Interval: 811 P-R Interval: 168 QRSD Interval: 144 QT Interval: 456 QTC Interval: 506 P [place]: 7 QRS [place]: -71 T Wave [place]: 91 EKG Severity - ABNORMAL ECG - EKG Impression: SINUS RHYTHM EKG Impression: RBBB AND LAFB EKG Impression: LEFT VENTRICULAR HYPERTROPHY EKG Impression: Agree with above Electronically Signed By: Esa Barrios 05-Oct-2016 06:24:44
[2016-10-04 20:20] LABS: % IMMATURE GRANULYOCYTES 0.3 % (0.0-1.1); ABSOLUTE IMMATURE GRANULOCYTES 0.01 10^3/uL (0.00-0.10); ADD DIFF? NO; ADD MORPH? NO; ADD SCAN? NO; ATYPICAL LYMPHOCYTE FLAG 30 (0-99); FRAGMENT RBC FLAG 0 (0-99); HEMATOCRIT 23.4 % (40.0-51.0); HEMOGLOBIN 7.7 g/dL (13.7-17.5); LEFT SHIFT FLG 0 (0-99); LIPEMIA HEMOLYSIS FLAG 80 (0-99); MEAN CELL HEMOGLOBIN 30.7 pg (27.9-34.1); MEAN CELL HEMOGLOBIN CONCENTR. 32.9 g/dL (32.4-36.7); MEAN CELL VOLUME 93.2 fL (81.5-99.8); MEAN PLATELET VOLUME 9.8 fL (8.7-11.7); PLATELET CLUMPS FLAG 10 (0-99); PLATELET COUNT 77 10^3/uL (150-400); RED BLOOD CELL COUNT 2.51 10^6/uL (4.40-6.38); RED CELL DISTRIBUTION WIDTH 16.1 % (11.5-15.2)
[2016-10-04] MEDS: INSULIN REGULAR HUMAN 100 UNIT/ML SC SCH ×2 (22:08→22:09)
[2016-10-04] MEDS ORDERED: FAMOTIDINE 20 MG TAB PO SCH (22:15)
[2016-10-04] MEDS: PANTOPRAZOLE SODIUM 40 MG TAB PO SCH (23:30)
[2016-10-05 02:02] VITALS: O2SAT 99
[2016-10-05 04:51] LABS: % IMMATURE GRANULYOCYTES 0.2 % (0.0-1.1); ABSOLUTE IMMATURE GRANULOCYTES 0.01 10^3/uL (0.00-0.10); ADD DIFF? NO; ADD MORPH? NO; ADD SCAN? NO; ATYPICAL LYMPHOCYTE FLAG 0 (0-99); FRAGMENT RBC FLAG 0 (0-99); HEMATOCRIT 23.4 % (40.0-51.0); HEMOGLOBIN 7.7 g/dL (13.7-17.5); LEFT SHIFT FLG 0 (0-99); LIPEMIA HEMOLYSIS FLAG 80 (0-99); MEAN CELL HEMOGLOBIN 30.9 pg (27.9-34.1); MEAN CELL HEMOGLOBIN CONCENTR. 32.9 g/dL (32.4-36.7); MEAN PLATELET VOLUME 10.3 fL (8.7-11.7); PLATELET CLUMPS FLAG 0 (0-99); PLATELET COUNT 68 10^3/uL (150-400); RED BLOOD CELL COUNT 2.49 10^6/uL (4.40-6.38); RED CELL DISTRIBUTION WIDTH 16.3 % (11.5-15.2)
[2016-10-05 05:06] LABS: INR 1.67 (0.83-1.16); PROTIME(PATIENT) 19.7 SEC (12.0-15.0)
[2016-10-05 05:17] LABS: ALANINE AMINOTRANSFERASE 52 IU/L (21-72); ALBUMIN 3.2 g/dL (3.5-5.0); ALKALINE PHOSPHATASE 100 IU/L (38-126); ANION GAP 7 mEq/L (8-16); ASPARTATE AMINOTRANSFERASE 75 IU/L (17-59); BILIRUBIN,TOTAL 3.1 mg/dL (0.1-1.4); BILIRUBIN-CONJUGATED 0.7 mg/dL (0.0-0.5); BILIRUBIN-UNCONJUGATED 2.4 mg/dL (0.0-1.1); CALCIUM 8.6 mg/dL (8.5-10.4); CARBON DIOXIDE 24 mEq/l (22-31); CHLORIDE 108 mEq/L (97-110); CREATININE 0.8 mg/dL (0.7-1.3); GLOMERULAR FILTRATION RATE > 60; GLUCOSE 185 mg/dL (70-100); SODIUM 139 mEq/L (134-144); TOTAL PROTEIN 6.4 g/dL (6.3-8.2)
[2016-10-05 08:08] VITALS: TEMP 98.5
[2016-10-05] MEDS: PANTOPRAZOLE SODIUM 40 MG TAB PO SCH (08:39)
[2016-10-05] MEDS: INSULIN REGULAR HUMAN 100 UNIT/ML SC SCH (08:39)
[2016-10-05] MEDS ORDERED: SPIRONOLACTONE 50 MG TAB PO SCH ×2 (09:00→21:00)
[2016-10-05] MEDS ORDERED: FUROSEMIDE 40 MG TAB PO SCH (09:00)
[2016-10-05] MEDS ORDERED: INSULIN GLARGINE 100 UNITS/ML SYRINGE SC SCH (09:00)
[2016-10-05] MEDS ORDERED: VENLAFAXINE XR 75 MG CAP PO SCH (09:00)
[2016-10-05] MEDS ORDERED: FERROUS SULFATE 325 MG TAB PO SCH (09:00)
[2016-10-05] MEDS ORDERED: FAMOTIDINE 20 MG TAB PO SCH (09:00)
[2016-10-05] MEDS ORDERED: PROPRANOLOL HCL 20 MG TAB PO SCH (09:00)
[2016-10-05 10:27] VITALS: BP 97/48; PULSE 60; RESP 20
--- NOTE | 2016-10-05 11:15 | SOAPPROG ---
SOAP Progress Note Assessment/Plan: Assessment: Cirrhosis and portal HTN: Post long TIPS procedure. Doing well. Bili increased, normal post TIPS. Gstric varices decompressed. Chronic fatigue: Mentation baseline. Anemia: HCT stable. Elevated RT heart pressure: Improved with Diltiazem challenge. Patient may get pleural effusions from TIPS, as his fluid shifts. May require thoracentesis. Refractory ascites: Will likely continue to need taps as fluid shifts. Plan: 1. IR will schedule for TIPS check and probable stent extension and dilatation , part B of this staged approach for this patient, in a few months. 2. Close follow up with Dr. Matthew and Dr. Quarles. May need to be on oral Diltiazem to prevent accumulation of pleural effusion. 3. Can D/C today. What to look out for at home were discussed with patient and . 4. Thanks to the hospitalist service for help with co-management of this patient. 10/05/16 11:08 Subjective: No complaints. Feels awake. "I think my belly is smaller." Objective: Vital Signs Temp Pulse Resp BP Pulse Ox 36.9 C 60 20 97/48 L 99 10/05/16 08:00 10/05/16 10:00 10/05/16 10:00 10/05/16 10:00 10/05/16 10:00 Laboratory Results 10/05/16 04:35 10/05/16 04:35 10/04/16 10/05/16 10/06/16 05:59 05:59 05:59 Intake Total 1500 578 Output Total 3350 1395 Balance -1850 -817 PT 19.7 SEC (12.0-15.0) H 10/05/16 04:35 INR 1.67 (0.83-1.16) H 10/05/16 04:35 Abd soft, NT. Normal bowel sounds. RT IJ incision site without hematoma. ICD10 Worksheet Patient Problems: Problems Problem Status Onset Anemia Acute Ascites Acute Cirrhosis Acute Thrombocytopenia Acute
--- NOTE | 2016-10-05 15:40 | PDDCSUM ---
Discharge Summary Discharge Summary: DISCHARGE SUMMARY FOLLOW-UP ITEMS: Follow up with Dr. Quarles DATE OF ADMISSION: 10/04/16 DATE OF DISCHARGE: 10/05/2016 DISCHARGE DIAGNOSES: 1. End-stage liver disease secondary to cryptogenic cirrhosis 2. Pancytopenia secondary to end-stage liver disease 3. Chronic diabetes mellitus 4. Acute hypoglycemia 5. Chronic coronary artery disease CONSULTATIONS: Interventional Radiology PROCEDURES / IMAGING: Tips CHIEF COMPLAINT: Abdominal distension SUBJECTIVE: Patient is feeling well at time of discharge, abdominal distention is less pronounced PHYSICAL EXAM ON DISCHARGE: Systolic blood pressure 110-120, heart rate in the 80s, afebrile overnight, abdomen is moderately distended but less tight than day prior, nontender, bowel sounds are present, breath sounds clear in bilateral bases, there is 1+ bilateral lower extremity edema LABS ON DISCHARGE: Creatinine 0.8, INR 1.7, serum sodium 139, potassium 4, white blood cell count 4100, hemoglobin 7.7, platelets 01868, glucose 190 HOSPITAL COURSE BY PROBLEM: 1. End-stage liver disease secondary to cryptogenic cirrhosis. Patient has GI varices and requires paracentesis approximately once weekly. Consequently, he was scheduled for a TIPS procedure with paracentesis by Dr. Livingston. The procedure was uncomplicated and the patient is safe for discharge home at this time. It was noted that the patient did have elevated right-sided heart pressures, he did receive diltiazem periprocedurally, Dr. Livingston has recommended the patient follow up with Dr. Quarles in the outpatient setting and she is contacting him to discuss further. Of note, 9.1 L were removed via paracentesis. 2. Pancytopenia. Secondary to end-stage liver disease, the patient received 2 units of platelets perioperatively and 1 unit of PRBCs. Blood counts are stable at time of discharge will be followed up in the outpatient setting by his outpatient providers. 3. Acute hypoglycemia. Patient's glucose level 65 was given half amp of D50 and was placed on insulin sliding scale for reactive hyperglycemia in the setting of diabetes mellitus type 2. DISCHARGE MEDICATIONS: Please see official discharge medication reconciliation sheet in chart , no changes were made to his medications. DISCHARGE INSTRUCTIONS: Patient will follow up with Dr. Quarles in the short term, Dr. Lawler thereafter.
[2016-10-05] MEDS ORDERED: ATORVASTATIN CALCIUM 20 MG TAB PO SCH (21:00)
== END 2016-10-05 12:30 | disposition home or self-care (01) ==
LOC: FIMAGING 10:03 → F2N 13:38
PROVIDERS: ADMIT Internal Medicine; ATTEND Internal Medicine
PROC: 30233N1 Transfusion of Nonautologous Red Blood Cells into Peripheral Vein, Percutaneous Approach (ICD-10-PCS; principal; 2016-10-04)
PROC: 0W9G30Z Drainage of Peritoneal Cavity with Drainage Device, Percutaneous Approach (ICD-10-PCS; principal; 2016-10-04)
PROC: 06H Lower Veins, Insertion (ICD-10-PCS; principal; 2016-10-04)
PROC: 30233K1 Transfusion of Nonautologous Frozen Plasma into Peripheral Vein, Percutaneous Approach (ICD-10-PCS; principal; 2016-10-04)
DX: K74.69 Other cirrhosis of liver (principal); D61.818 Other pancytopenia; E11.649 Type 2 diabetes mellitus with hypoglycemia without coma; I25.10 Atherosclerotic heart disease of native coronary artery without angina pectoris; K76.6 Portal hypertension
CPT/HCPCS: 37182; 49083; 75889; 93005; C1725; C1769; C1874; C2628; G0378; J0330; J0696; J1335; J1644; J1815; J2370; J2405; J2704; J3010; P9016; P9035; P9047; Q9967; 99001-90

== ENCOUNTER 2016-10-15 14:48 | Emergency (ER) | payer OTHER ==
[2016-10-15 14:56] VITALS: RESP 18; O2SAT 98
[2016-10-15] MEDS ORDERED: ONDANSETRON 4 MG/2 ML VIAL IVP ONE (15:15)
[2016-10-15] MEDS ORDERED: NS 1,000 ML IV ONE (15:15)
--- NOTE | 2016-10-15 15:15 | EDPHY ---
H & P Stated Complaint: cirrhosis of liver/TIPS proccedure last week/n/v Time Seen by Provider: 10/15/16 15:01 HPI/ROS: CHIEF COMPLAINT: Nausea, vomiting, confusion HISTORY OF PRESENT ILLNESS: This is a 60-year-old male with a history of cirrhosis of unclear cause, ascites, status post tips procedure, diabetes, coronary artery disease, pacemaker placement, cardiac stents x2 presenting with nausea and vomiting which began today. Vomitus is not bloody. also note that patient was confused yesterday. He has longstanding weakness, but yesterday he was not able to get up off the ground, he did not understand how to fall simple directions, slept on the floor last night. He has vomited 4 times today. No diarrhea. No fever. No history of hepatic encephalopathy. denies fevers or chills. Patient denies any chest pain, shortness of breath, urinary complaints, or headache. Patient denies abdominal pain. REVIEW OF SYSTEMS: Aside from elements discussed in the HPI, a comprehensive 10-point review of systems was reviewed and is negative. PAST MEDICAL HISTORY: Cirrhosis, esophageal varices, hypertension, hyperlipidemia, diabetes, tips procedure recently, pacemaker, stents x2. SOCIAL HISTORY: Nonsmoker. No alcohol. Here with his . VITAL SIGNS: Reviewed by me GENERAL: Restless, jaundiced, difficulty moving about the bed secondary to weakness HEENT: Atraumatic. Eyes: Scleral icterus, no injection. Mouth: moist mucous membranes. No erythema or lesions. Neck: supple with no adenopathy. LUNGS: Clear to auscultation bilaterally, no wheezes, rhonchi or rales. CARDIAC: Distant but regular, no rubs, murmurs or gallops. ABDOMEN: Soft, nontender, nondistended, bowel sounds normal. BACK: No CVA tenderness. EXTREMITIES: No trauma. No edema. Range of motion is normal throughout. NEURO: Alert and oriented x3. Slow to answer questions., grossly nonfocal. SKIN: Warm and dry, no rash. PSYCHIATRIC: No agitation. - Personal History Current Tetanus/Diphtheria Vaccine: Unsure - Medical/Surgical History Hx Asthma: No Hx Chronic Respiratory Disease: No Hx Diabetes: Yes Hx Cardiac Disease: Yes Hx Renal Disease: No Hx Cirrhosis: Yes Hx Alcoholism: No Hx HIV/AIDS: No Hx Splenectomy or Spleen Trauma: No Other PMH: PACEMAKER, STENTX2, DMii, CIRRHOSIS, ESOPHAGEAL VARICES, hypertension , hyperlipidemia. 2 HEAD SURGERY- PLATE , S/P FALL OFF MOUNTAIN CHILD- TBI- FORGETFUL, DIFF READING,. seizure c CVA (unknown date- denies deficits), TIPS procedure - Social History Smoking Status: Former smoker Constitutional: Initial Vital Signs Temperature (C) 36.6 C 10/15/16 14:53 Heart Rate 58 L 10/15/16 14:53 Respiratory Rate 18 10/15/16 14:53 Blood Pressure 150/73 H 10/15/16 14:53 O2 Sat (%) 98 10/15/16 14:53 O2 Delivery Mode Room Air Allergies/Adverse Reactions: No Known Allergies Allergy (Verified 10/15/16 14:51) Home Medications: Medication Instructions Recorded Ferrous Sulfate [Ferrous Sulf 325 325 mg PO DAILY 12/16/15 MG (*)] Furosemide [Lasix 80 MG (*)] 80 mg PO DAILY 12/16/15 Pantoprazole Sodium [Protonix 40mg 20 mg PO BID 12/16/15 (*)] Ranitidine HCl [Zantac] 150 mg PO BID 12/16/15 Simvastatin [Zocor] 40 mg PO HS 12/16/15 Venlafaxine Xr [Effexor Xr 75MG 75 mg PO DAILY 12/16/15 (*)] Propranolol HCl [Inderal 20mg (*)] 20 mg PO BID 07/04/16 Insulin Glargine [Lantus 100 60 units SC BID 10/04/16 UNITS/ML (*)] Spironolactone [Aldactone] 50 mg PO HS 10/04/16 Spironolactone [Aldactone] 100 mg PO DAILY 10/04/16 Diltiazem 10/15/16 Ondansetron Odt [Zofran Odt 4 mg 4 mg PO Q6 PRN #8 tab 10/15/16 (RX)] Medical Decision Making - Diagnostics Imaging: Imaging Impressions Chest X-Ray 10/15/16 15:15 Impression: 1. Clear lungs. No acute process or pneumoperitoneum. 2. Mild cardiomegaly unchanged. No failure. Images were reviewed and interpreted by myself ED Course/Re-evaluation: IV was placed. Laboratory evaluation including ammonia was ordered. Patient has a normal white count, platelets 72, elevated bilirubin to 6.3. Elevated ammonia. I discussed course with Dr. Nando Collins. Plans were made to admit the patient to the hospital. However, the patient and his would much prefer to be discharged home. After receiving IV fluids as well as Zofran a report that he is feeling better. He received a trial of p.o. fluids and food in the emergency department. Patient had no further vomiting. They will follow-up early next week with Dr. saldana. The understand reasons to return to the emergency department including fevers, increasing abdominal distension, increased confusion, increasing jaundice or scleral icterus, diarrhea, or other concerns. Differential Diagnosis: Differential diagnosis of the patient's vomiting and confusion was considered including but not limited to electrolyte abnormalities, hepatitis, hepatorenal syndrome, hepatic encephalopathy, alcohol intoxication, withdrawal symptoms, intraabdominal processes including appendicitis, pancreatitis, bowel obstruction and medication side effect. - Data Points Laboratory Results: Laboratory Results 10/15/16 15:05 10/15/16 15:05 10/15/16 10/15/16 10/15/16 15:20 15:05 15:05 WBC RBC Hgb Hct MCV MCH MCHC RDW Plt Count MPV Neut % (Auto) Lymph % (Auto) [place] % (Auto) Eos % (Auto) Baso % (Auto) Nucleat RBC Rel Count Absolute Neuts (auto) Absolute Lymphs (auto) Absolute Monos (auto) Absolute Eos (auto) Absolute Basos (auto) Absolute Nucleated RBC Immature Gran % Immature Gran # PT INR APTT VBG Lactic Acid Sodium 138 mEq/L mEq/L (134-144) Potassium 3.8 mEq/L mEq/L (3.5-5.2) Chloride 104 mEq/L mEq/L (97-110) Carbon Dioxide 22 mEq/l mEq/l (22-31) Anion Gap 12 mEq/L mEq/L (8-16) BUN 18 mg/dL mg/dL (7-23) Creatinine 1.0 mg/dL mg/dL (0.7-1.3) Estimated GFR > 60 Glucose 281 mg/dL H mg/dL (70-100) Calcium 9.8 mg/dL mg/dL (8.5-10.4) Total Bilirubin 6.3 mg/dL H mg/dL (0.1-1.4) Conjugated Bilirubin 1.4 mg/dL H mg/dL (0.0-0.5) Unconjugated Bilirubin 4.9 mg/dL H mg/dL (0.0-1.1) AST 77 IU/L H IU/L (17-59) ALT 54 IU/L IU/L (21-72) Alkaline Phosphatase 169 IU/L H IU/L (38-126) Ammonia 68.0 uMOL/L H uMOL/L (9.0-30.0) Total Protein 8.7 g/dL H g/dL (6.3-8.2) Albumin 4.0 g/dL g/dL (3.5-5.0) Lipase 121.0 IU/L IU/L (23-300) Urine Color YELLOW Urine Appearance CLEAR Urine pH 6.0 (5.0-7.5) Ur Specific [place] 1.006 (1.002-1.030) Urine Protein NEGATIVE (NEGATIVE) Urine Ketones NEGATIVE (NEGATIVE) Urine Blood 1+ H (NEGATIVE) Urine Nitrate NEGATIVE (NEGATIVE) Urine Bilirubin NEGATIVE (NEGATIVE) Urine Urobilinogen NEGATIVE EU EU (0.2-1.0) Ur Leukocyte Esterase NEGATIVE (NEGATIVE) Urine RBC 1-3 /hpf /hpf (0-3) Urine WBC 1-3 /hpf /hpf (0-3) Ur Epithelial Cells TRACE /lpf /lpf (NONE-1+) Hyaline Casts 1-5 /lpf /lpf (0-1) Urine Glucose 1+ H (NEGATIVE) 10/15/16 10/15/16 10/15/16 15:05 15:05 15:05 WBC 4.76 10^3/uL 10^3/uL (3.80-9.50) RBC 3.83 10^6/uL L 10^6/uL (4.40-6.38) Hgb 11.5 g/dL L g/dL (13.7-17.5) Hct 35.5 % L % (40.0-51.0) MCV 92.7 fL fL (81.5-99.8) MCH 30.0 pg pg (27.9-34.1) MCHC 32.4 g/dL g/dL (32.4-36.7) RDW 17.7 % H % (11.5-15.2) Plt Count 72 10^3/uL L 10^3/uL (150-400) MPV 10.4 fL fL (8.7-11.7) Neut % (Auto) 64.9 % % (39.3-74.2) Lymph % (Auto) 18.7 % % (15.0-45.0) [place] % (Auto) 10.5 % % (4.5-13.0) Eos % (Auto) 3.8 % % (0.6-7.6) Baso % (Auto) 1.5 % % (0.3-1.7) Nucleat RBC Rel Count 0.0 % % (0.0-0.2) Absolute Neuts (auto) 3.09 10^3/uL 10^3/uL (1.70-6.50) Absolute Lymphs (auto) 0.89 10^3/uL L 10^3/uL (1.00-3.00) Absolute Monos (auto) 0.50 10^3/uL 10^3/uL (0.30-0.80) Absolute Eos (auto) 0.18 10^3/uL 10^3/uL (0.03-0.40) Absolute Basos (auto) 0.07 10^3/uL 10^3/uL (0.02-0.10) Absolute Nucleated RBC 0.00 10^3/uL 10^3/uL (0-0.01) Immature Gran % 0.6 % % (0.0-1.1) Immature Gran # 0.03 10^3/uL 10^3/uL (0.00-0.10) PT 20.4 SEC H SEC (12.0-15.0) INR 1.74 H (0.83-1.16) APTT 33.1 SEC SEC (23.0-38.0) VBG Lactic Acid 1.9 mmol/L mmol/L (0.7-2.1) Sodium Potassium Chloride Carbon Dioxide Anion Gap BUN Creatinine Estimated GFR Glucose Calcium Total Bilirubin Conjugated Bilirubin Unconjugated Bilirubin AST ALT Alkaline Phosphatase Ammonia Total Protein Albumin Lipase Urine Color Urine Appearance Urine pH Ur Specific [place] Urine Protein Urine Ketones Urine Blood Urine Nitrate Urine Bilirubin Urine Urobilinogen Ur Leukocyte Esterase Urine RBC Urine WBC Ur Epithelial Cells Hyaline Casts Urine Glucose Medications Given: Discontinued Medications Sodium Chloride (Ns) 1,000 mls @ 0 mls/hr IV ONCE ONE PRN Reason: Wide Open Stop: 10/15/16 15:16 Last Admin: 10/15/16 15:20 Dose: 1,000 mls Ondansetron HCl (Zofran) 4 mg IVP EDNOW ONE Stop: 10/15/16 15:16 Last Admin: 10/15/16 15:20 Dose: 4 mg Departure - Departure Disposition: Home, Routine, Self-Care Clinical Impression: Elevated ammonia, Jaundice Nausea & vomiting Qualifiers: Vomiting type: unspecified Vomiting Intractability: non-intractable Qualified Code(s): R11.2 - Nausea with vomiting, unspecified Condition: Good Instructions: Acute Nausea and Vomiting (ED) Additional Instructions: Okay to use Zofran as needed for recurrent nausea and vomiting. For your nausea and vomiting, I suggested you start with a bland diet and advance as tolerated. This means start with clear liquids such as water, Gatorade, juice, flat non- caffeinated soda. If you tolerate clear liquids, then you may add bland foods such as bananas, rice, or toast. If you do not have any worsening of your symptoms, you may begin to resume a regular diet. Please follow up with Dr. Middleton next week if you have any concerns regarding ongoing confusion, recurrent nausea and vomiting, or the development of abdominal pain. Be seen urgently if you develop fevers, worsening significant confusion, falling , vomiting blood, increasing abdominal pain or distention, or other concerns. Referrals: Curt Lawler [Primary Care Provider] - As per Instructions Prescriptions: Ondansetron Odt [Zofran Odt 4 mg (RX)] 4 mg PO Q6 PRN #8 tab PRN Reason: Nausea
[2016-10-15 15:24] LABS: % IMMATURE GRANULYOCYTES 0.6 % (0.0-1.1); ABSOLUTE IMMATURE GRANULOCYTES 0.03 10^3/uL (0.00-0.10); ADD DIFF? NO; ADD MORPH? NO; ADD SCAN? NO; ATYPICAL LYMPHOCYTE FLAG 30 (0-99); FRAGMENT RBC FLAG 0 (0-99); HEMATOCRIT 35.5 % (40.0-51.0); HEMOGLOBIN 11.5 g/dL (13.7-17.5); LEFT SHIFT FLG 0 (0-99); LIPEMIA HEMOLYSIS FLAG 80 (0-99); MEAN CELL HEMOGLOBIN CONCENTR. 32.4 g/dL (32.4-36.7); MEAN CELL VOLUME 92.7 fL (81.5-99.8); MEAN PLATELET VOLUME 10.4 fL (8.7-11.7); PLATELET CLUMPS FLAG 0 (0-99); PLATELET COUNT 72 10^3/uL (150-400); RED BLOOD CELL COUNT 3.83 10^6/uL (4.40-6.38); RED CELL DISTRIBUTION WIDTH 17.7 % (11.5-15.2)
[2016-10-15 15:33] LABS: INR 1.74 (0.83-1.16); PROTIME(PATIENT) 20.4 SEC (12.0-15.0)
[2016-10-15 15:34] LABS: APTT 33.1 SEC (23.0-38.0)
[2016-10-15 15:50] LABS: ALANINE AMINOTRANSFERASE 54 IU/L (21-72); ALKALINE PHOSPHATASE 169 IU/L (38-126); ANION GAP 12 mEq/L (8-16); ASPARTATE AMINOTRANSFERASE 77 IU/L (17-59); BILIRUBIN,TOTAL 6.3 mg/dL (0.1-1.4); BILIRUBIN-CONJUGATED 1.4 mg/dL (0.0-0.5); BILIRUBIN-UNCONJUGATED 4.9 mg/dL (0.0-1.1); CALCIUM 9.8 mg/dL (8.5-10.4); CARBON DIOXIDE 22 mEq/l (22-31); CHLORIDE 104 mEq/L (97-110); GLOMERULAR FILTRATION RATE > 60; GLUCOSE 281 mg/dL (70-100); POTASSIUM 3.8 mEq/L (3.5-5.2); SODIUM 138 mEq/L (134-144); TOTAL PROTEIN 8.7 g/dL (6.3-8.2)
[2016-10-15 16:00] LABS: COLOR YELLOW; LEUKOCYTE ESTERASE,URINE NEGATIVE (NEGATIVE); NITRITE,URINE NEGATIVE (NEGATIVE)
[2016-10-15 16:05] VITALS: BP 134/69; PULSE 62; TEMP 97.5
--- NOTE | 2016-10-15 16:17 | CPEKG ---
Heart Rate: 62 RR Interval: 968 P-R Interval: 196 QRSD Interval: 138 QT Interval: 492 QTC Interval: 500 P [place]: -28 QRS [place]: -65 T Wave [place]: 102 EKG Severity - ABNORMAL ECG - EKG Impression: SINUS RHYTHM EKG Impression: IVCD, CONSIDER ATYPICAL RBBB EKG Impression: LVH WITH IVCD, LAD AND SECONDARY REPOL ABNRM Electronically Signed By: Mariluz Ferreira 16-Oct-2016 00:43:34
== END 2016-10-15 17:35 | disposition home or self-care (01) ==
LOC: UNDOADMIN 16:28
DX: R17 Unspecified jaundice (principal); E72.20 Disorder of urea cycle metabolism, unspecified; I10 Essential (primary) hypertension; E11.9 Type 2 diabetes mellitus without complications; Z79.4 Long term (current) use of insulin; Z87.891 Personal history of nicotine dependence; Z95.0 Presence of cardiac pacemaker; Z95.5 Presence of coronary angioplasty implant and graft
CPT/HCPCS: 71020; 93005; 96361; 96374; 99285; J2405

== ENCOUNTER 2016-10-18 10:44 | Inpatient (IN) | payer OTHER ==
--- NOTE | 2016-10-18 11:01 | CPEKG ---
Heart Rate: 62 RR Interval: 968 P-R Interval: 168 QRSD Interval: 148 QT Interval: 508 QTC Interval: 516 P [place]: 57 QRS [place]: -72 T Wave [place]: 90 EKG Severity - ABNORMAL ECG - EKG Impression: SINUS RHYTHM EKG Impression: RBBB AND LAFB EKG Impression: LEFT VENTRICULAR HYPERTROPHY Electronically Signed By: Chas Garcia 18-Oct-2016 15:29:25
[2016-10-18 11:15] LABS: % IMMATURE GRANULYOCYTES 0.9 % (0.0-1.1); ABSOLUTE IMMATURE GRANULOCYTES 0.07 10^3/uL (0.00-0.10); ADD DIFF? NO; ADD MORPH? NO; ADD SCAN? NO; ATYPICAL LYMPHOCYTE FLAG 10 (0-99); FRAGMENT RBC FLAG 0 (0-99); HEMATOCRIT 36.9 % (40.0-51.0); HEMOGLOBIN 12.5 g/dL (13.7-17.5); LEFT SHIFT FLG 0 (0-99); LIPEMIA HEMOLYSIS FLAG 90 (0-99); MEAN CELL HEMOGLOBIN 30.3 pg (27.9-34.1); MEAN CELL HEMOGLOBIN CONCENTR. 33.9 g/dL (32.4-36.7); MEAN CELL VOLUME 89.3 fL (81.5-99.8); MEAN PLATELET VOLUME 10.3 fL (8.7-11.7); PLATELET CLUMPS FLAG 0 (0-99); PLATELET COUNT 76 10^3/uL (150-400); RED BLOOD CELL COUNT 4.13 10^6/uL (4.40-6.38); RED CELL DISTRIBUTION WIDTH 18.6 % (11.5-15.2)
[2016-10-18 11:21] LABS: INR 1.6 (0.83-1.16); PROTIME(PATIENT) 19.1 SEC (12.0-15.0)
[2016-10-18 11:22] LABS: APTT 33.1 SEC (23.0-38.0)
--- NOTE | 2016-10-18 11:25 | EDPHY ---
H & P Stated Complaint: syncope vs seizure Time Seen by Provider: 10/18/16 10:48 - Personal History Current Tetanus Diphtheria and Acellular Pertussis (TDAP): Yes - Medical/Surgical History Hx Asthma: No Hx Chronic Respiratory Disease: No Hx Diabetes: Yes Hx Cardiac Disease: Yes Hx Renal Disease: No Hx Cirrhosis: Yes Hx Alcoholism: No Hx HIV/AIDS: No Hx Splenectomy or Spleen Trauma: No Other PMH: PACEMAKER, STENTX2, DMii, CIRRHOSIS, ESOPHAGEAL VARICES, hypertension , hyperlipidemia. 2 HEAD SURGERY- PLATE , S/P FALL OFF MOUNTAIN CHILD- TBI- FORGETFUL, DIFF READING,. seizure c CVA (unknown date- denies deficits), TIPS procedure - Social History Smoking Status: Former smoker Constitutional: Initial Vital Signs Temperature (C) 36.3 C 10/18/16 10:54 Heart Rate 68 10/18/16 10:54 Respiratory Rate 16 10/18/16 10:54 Blood Pressure 145/69 H 10/18/16 10:54 O2 Sat (%) 100 10/18/16 10:54 O2 Delivery Mode Room Air Allergies/Adverse Reactions: No Known Allergies Allergy (Verified 10/15/16 14:51) Home Medications: Medication Instructions Recorded Ferrous Sulfate [Ferrous Sulf 325 325 mg PO DAILY 12/16/15 MG (*)] Furosemide [Lasix 80 MG (*)] 80 mg PO DAILY 12/16/15 Pantoprazole Sodium [Protonix 40mg 20 mg PO BID 12/16/15 (*)] Ranitidine HCl [Zantac] 150 mg PO BID 12/16/15 Simvastatin [Zocor] 40 mg PO HS 12/16/15 Venlafaxine Xr [Effexor Xr 75MG 75 mg PO DAILY 12/16/15 (*)] Propranolol HCl [Inderal 20mg (*)] 20 mg PO BID 07/04/16 Insulin Glargine [Lantus 100 60 units SC BID 10/04/16 UNITS/ML (*)] Spironolactone [Aldactone] 50 mg PO HS 10/04/16 Spironolactone [Aldactone] 100 mg PO DAILY 10/04/16 Diltiazem 10/15/16 Ondansetron Odt [Zofran Odt 4 mg 4 mg PO Q6 PRN #8 tab 04/07/17 (RX)] Medical Decision Making ED Course/Re-evaluation: CHIEF COMPLAINT: AMS, lethargy HISTORY OF PRESENT ILLNESS: The patient is a 60 y/o male with multiple significant medical conditions including CVA, CAD, diabetes, end-stage liver disease, and cirrhosis of unclear etiology who has presented encephalopathic in the past arriving today with progressive altered mentation and lethargy. He had a recent partial TIPS procedure that was unable to be completed due to his stability. His reports his most recent ammonia level was elevated at 60 and she was treating with lactulose; however, she stopped the lactulose yesterday due to bowel incontinence and inability for him to care for himself. He was evaluated here 3 days ago for similar symptoms and was stable enough to decline admission. The family denies recent trauma. REVIEW OF SYSTEMS: A 10 point review of systems was performed and is negative with the exception of the elements mentioned in the history of present illness. PHYSICAL EXAM: General Appearance: Somnolent, jaundiced, responsive to painful stimulus. Head: Atraumatic without scalp tenderness or obvious injury Eyes: Pupils equal, round, reactive to light and accommodation, EOMI, no trauma , no injection. Scleral icterus. Nose: Atraumatic, no rhinorrhea, clear. Throat: mucus membranes moist. Neck: Supple, no lymphadenopathy. Respiratory: No retractions, no distress, no wheezes, and no accessory muscle use. Lungs are clear to auscultation bilaterally. Cardiovascular: Regular rate and rhythm, no murmurs, rubs, or gallops. Good capillary refill all extremities. Gastrointestinal: Abdomen is soft, non-tender, no masses, no rebound, no guarding, no peritoneal signs. Ascites with fluid wave. Musculoskeletal: Normal active ROM of all extremities, atraumatic. Neurological: Somnolent, responsive to painful stimuli, minimally able to follow basic commands. Moving all 4 extremities. Skin: No rashes, good turgor, no nodules on palpation. Jaundiced. PAST MEDICAL HISTORY: Cirrhosis, coronary artery disease, esophageal varices, hypertension, diabetes, hyperlipidemia, SC, TBI, family states he generally does not have decision-making capacity. PAST SURGICAL HISTORY: stents x2, TIPS October 2016, pacemaker, skull plates from trauma SOCIAL HISTORY: Denies alcohol history. Nonsmoker. Family at bedside. Prior medical records reviewed including ED visit 4/7/17 for similar presentation and was discharged home at his request. DIAGNOSTICS/PROCEDURES/CRITICAL CARE TIME: Head CT. I viewed the images myself on the PACS system. DIFFERENTIAL DIAGNOSIS: The differential diagnosis for the patient's altered mental status included but was not limited to hyperammonemia, liver failure, hypoglycemia, infectious process, electrolyte abnormality, head injury, neurologic process, anemia, cardiac process, and intoxicants. MEDICAL DECISION MAKING: This is a 60 y/o male with end-stage liver disease and multiple comorbidities who presents with progressive altered mentation over the last few days. Today he is confused, has difficulty following commands, and is quite somnolent in setting of cirrhosis and previous encephalopathy. His reports his most recent ammonia level was 60 and she has been administering lactulose up until yesterday. She discontinued it because she was unable to manage the subsequent loose stool and bowel incontinence as the patient was unable to contribute to his own hygiene. He is responsive to painful stimuli and jaundiced with abdominal fluid wave on exam. I suspect his presentation is related to increased ammonia and liver failure. Plan for work up with IV, labs including ammonia level, CBC, CHEM, PTPTT, lipase, LFTs, and head CT to rule out other acute intracranial process. BGL 252 and K 5.5 (CHEM K sample likely hemolyzed) on ISTAT. INR is sub- therapeutic at 1.6. Ammonia is 159. Lactulose enemas and oral ordered. Patient will require admission for AMS, liver failure, and hyperammonemia. Patient can not cooperate with CT scan due to AMS. No history of trauma or falls. We will reattempt later. 1140: Spoke with hospitalist service. Dr. Carnes accepts admission. Head CT negative for acute findings. Chronic findings as detailed in radiologist report. - Data Points Laboratory Results: Laboratory Results 10/18/16 11:00 10/18/16 11:00 10/18/16 10/18/16 10/18/16 11:00 11:00 11:00 WBC 8.20 10^3/uL 10^3/uL (3.80-9.50) RBC 4.13 10^6/uL L 10^6/uL (4.40-6.38) Hgb 12.5 g/dL L g/dL (13.7-17.5) Hct 36.9 % L % (40.0-51.0) MCV 89.3 fL fL (81.5-99.8) MCH 30.3 pg pg (27.9-34.1) MCHC 33.9 g/dL g/dL (32.4-36.7) RDW 18.6 % H % (11.5-15.2) Plt Count 76 10^3/uL L 10^3/uL (150-400) MPV 10.3 fL fL (8.7-11.7) Neut % (Auto) 75.2 % H % (39.3-74.2) Lymph % (Auto) 15.1 % % (15.0-45.0) Kimball % (Auto) 5.6 % % (4.5-13.0) Eos % (Auto) 2.6 % % (0.6-7.6) Baso % (Auto) 0.6 % % (0.3-1.7) Nucleat RBC Rel Count 0.0 % % (0.0-0.2) Absolute Neuts (auto) 6.17 10^3/uL 10^3/uL (1.70-6.50) Absolute Lymphs (auto) 1.24 10^3/uL 10^3/uL (1.00-3.00) Absolute Monos (auto) 0.46 10^3/uL 10^3/uL (0.30-0.80) Absolute Eos (auto) 0.21 10^3/uL 10^3/uL (0.03-0.40) Absolute Basos (auto) 0.05 10^3/uL 10^3/uL (0.02-0.10) Absolute Nucleated RBC 0.00 10^3/uL 10^3/uL (0-0.01) Immature Gran % 0.9 % % (0.0-1.1) Immature Gran # 0.07 10^3/uL 10^3/uL (0.00-0.10) PT 19.1 SEC H SEC (12.0-15.0) INR 1.60 H (0.83-1.16) APTT 33.1 SEC SEC (23.0-38.0) Sodium 138 mEq/L mEq/L (134-144) Potassium 6.2 mEq/L H mEq/L (3.5-5.2) Chloride 104 mEq/L mEq/L (97-110) Carbon Dioxide 22 mEq/l mEq/l (22-31) Anion Gap 12 mEq/L mEq/L (8-16) BUN 26 mg/dL H mg/dL (7-23) Creatinine 1.1 mg/dL mg/dL (0.7-1.3) Estimated GFR > 60 Glucose 265 mg/dL H mg/dL (70-100) Calcium 9.9 mg/dL mg/dL (8.5-10.4) Total Bilirubin 5.4 mg/dL H mg/dL (0.1-1.4) Conjugated Bilirubin 1.4 mg/dL H mg/dL (0.0-0.5) Unconjugated Bilirubin 4.0 mg/dL H mg/dL (0.0-1.1) AST 77 IU/L H IU/L (17-59) ALT 42 IU/L IU/L (21-72) Alkaline Phosphatase 163 IU/L H IU/L (38-126) Ammonia Total Protein 10.0 g/dL H g/dL (6.3-8.2) Albumin 4.7 g/dL g/dL (3.5-5.0) Lipase 125.0 IU/L IU/L (23-300) Specimen Hemolysis 162 10/18/16 10:58 WBC RBC Hgb Hct MCV MCH MCHC RDW Plt Count MPV Neut % (Auto) Lymph % (Auto) Kimball % (Auto) Eos % (Auto) Baso % (Auto) Nucleat RBC Rel Count Absolute Neuts (auto) Absolute Lymphs (auto) Absolute Monos (auto) Absolute Eos (auto) Absolute Basos (auto) Absolute Nucleated RBC Immature Gran % Immature Gran # PT INR APTT Sodium Potassium Chloride Carbon Dioxide Anion Gap BUN Creatinine Estimated GFR Glucose Calcium Total Bilirubin Conjugated Bilirubin Unconjugated Bilirubin AST ALT Alkaline Phosphatase Ammonia 159.0 uMOL/L H uMOL/L (9.0-30.0) Total Protein Albumin Lipase Specimen Hemolysis Departure - Departure Disposition: [facility] Clinical Impression: Hyperammonemia Altered mental status Qualifiers: Altered mental status type: somnolence Qualified Code(s): R40.0 - Somnolence Liver failure Qualifiers: Liver failure chronicity: chronic Hepatic coma status: without hepatic coma Qualified Code(s): K72.10 - Chronic hepatic failure without coma Condition: Serious Referrals: Curt Lawler [Primary Care Provider] - As per Instructions Report Scribed for: Chas Garcia Report Scribed by: Jyoti Mccallum Date of Report: 10/18/16 Time of Report: 11:56
[2016-10-18] MEDS ORDERED: LACTULOSE 20 GM/30 ML UDCUP PO ONE (11:27)
[2016-10-18 11:39] LABS: ALANINE AMINOTRANSFERASE 42 IU/L (21-72); ALBUMIN 4.7 g/dL (3.5-5.0); ALKALINE PHOSPHATASE 163 IU/L (38-126); ANION GAP 12 mEq/L (8-16); ASPARTATE AMINOTRANSFERASE 77 IU/L (17-59); BILIRUBIN,TOTAL 5.4 mg/dL (0.1-1.4); BILIRUBIN-CONJUGATED 1.4 mg/dL (0.0-0.5); CALCIUM 9.9 mg/dL (8.5-10.4); CARBON DIOXIDE 22 mEq/l (22-31); CHLORIDE 104 mEq/L (97-110); CREATININE 1.1 mg/dL (0.7-1.3); GLOMERULAR FILTRATION RATE > 60; GLUCOSE 265 mg/dL (70-100); POTASSIUM 6.2 mEq/L (3.5-5.2); SODIUM 138 mEq/L (134-144); SPECIMEN HEMOLYSIS 162
[2016-10-18] MEDS ORDERED: LACTULOSE 200 GM in SODIUM CL IRRIG SOLUTION 700 ML PR SCH (12:00)
--- NOTE | 2016-10-18 13:54 | SOAPPROG ---
SOAP Progress Note Assessment/Plan: Assessment: 1. Confusion: likely due to increased ammonia level. 2. ESLD: LFTs still within expected range post TIPS. Current LFTs and coags do not indicate liver failure. From that standpoint, patient is tolerating TIPS. 3. No evidence for accumulation of pleural effusion at this time, which was another concern at time of TIPS placement, as his pre-TIPS RA pressure was 23. He responded well to diltiazem challenge, a low dose of which can be helpful if he does accumulate pleural effusion. 4. TIPS: presumed patent at this point, otherwise his ascites would be accumulating at a much fast rate. None the less, if US abd is to be done for ascites or SBP work up, may be good to confirm patency with doppler. Plan: Medical work up and management of encephalopathy. TIPS shunt was initially intentionally under-dialated specifically to allow patient time to adjust to TIPS in a staged fashion, given his pre-TIPS MELD score of 15. Encephalopathy, pleural effusion, and liver tolerance were specific concerns. Original plan was to bring him back in 3-4 months to complete the dialation of the shunt. This may or may not be needed depending on how patient responds to medical management this time. Please feel free to contact me if I can be of any help. 10/18/16 13:54 Subjective: I just happened to walk by patient's room and saw that Mr. Perla was admitted. Had a brief conversation with his and daughter, who states that he has not had any bowel movements for days, and that his mentation has been getting worse over the last few days. Patient currently is not alert enough to have any coherent conversations. He is post TIPS 10/04 for refractory ascites, ranging 10-12L weekly pre-TIPS. Objective: Vital Signs Temp Pulse Resp BP Pulse Ox 36.3 C 77 19 146/62 H 100 10/18/16 13:36 10/18/16 13:36 10/18/16 13:36 10/18/16 13:36 10/18/16 13:36 PT 19.1 SEC (12.0-15.0) H 10/18/16 11:00 INR 1.60 (0.83-1.16) H 10/18/16 11:00 Labs noted. Predominant abnormality is increased ammonia. Abd soft, slightly distended. Much slower accumulation of ascites already post TIPS. His would have already needed 2-3 taps if TIPS were shut down. ICD10 Worksheet Patient Problems: Problems Problem Status Onset Altered mental status Acute Hyperammonemia Acute Liver failure Acute Anemia Acute Ascites Acute Cirrhosis Acute Jaundice Acute Nausea & vomiting Acute Thrombocytopenia Acute
[2016-10-18] MEDS ORDERED: ONDANSETRON 4 MG/2 ML VIAL IVP PRN (14:24)
[2016-10-18] MEDS ORDERED: ONDANSETRON DISINTEGRATING 4 MG TAB PO PRN (14:24)
[2016-10-18] MEDS ORDERED: ACETAMINOPHEN 325 MG TAB PO PRN (14:24)
[2016-10-18] MEDS ORDERED: RIFAXIMIN 550 MG TAB PO SCH (14:30)
[2016-10-18] MEDS ORDERED: D50W 25 GM/50 ML SYR IVP PRN (14:46)
--- NOTE | 2016-10-18 15:16 | GHP ---
[f rep st] HISTORY AND PHYSICAL DATE OF ADMISSION: 10/18/2016 HISTORY OF PRESENT ILLNESS: The patient is a 60-year-old gentleman with history of cryptogenic cirr hosis and coronary artery disease. Low caliber TIPS placed on October 04. [facility] and [facility]. At that time, he had a chest x-ray without i nfiltrate, images interpreted by me. He was lucid enough to go home. His notes that about 6 p.m. last night he began becoming confused and this morning he is unresp onsive. He has had a couple of liquid stools since then. Interestingly, he has not been taking any lactulose other than maybe 1 or 2 doses since discharge. It sounds like on discharge it was not clear for them to continue it. He has not had fever, chills or sputum. His abdominal girth has decreased. He has been eating poorly. He has not had any urina ry complaints. His has not noticed foul-smelling urine. He has not been constipated, but he h as been having less bowel movements. I have discussed the case with Dr. Chas Garcia as well as Dr. Nicolle Livingston and Dr. Jarrod Sahu. PAST MEDICAL HISTORY: 1. Cryptogenic cirrhosis. 2. Coronary artery disease with stents. 3. Recent TIPS procedure. 4. Depression. 5. Diabetes. 6. Hyperlipidemia. 7. History of esophageal variceal banding. 8. History of 2 stents. 9. Pacemaker. 10. Multiple paracenteses. SOCIAL HISTORY: He is a former smoker. No alcohol. Lives with his , who is present at the bed side. FAMILY HISTORY: Reviewed and unremarkable. ALLERGIES: No known drug allergies. MEDICATIONS: His home medications are venlafaxine, lactulose (which has been apparently discontinue d), Lasix 160 daily, spironolactone 100, diltiazem 30 b.i.d., Lantus 70 units b.i.d., simvastatin, r anitidine. PHYSICAL EXAMINATION: VITAL SIGNS: Presenting vitals today are blood pressure 145/69, pulse 68, br eathing 16 times a minute, 100% on room air, temp 36.3. GENERAL: Obtunded. Opens eyes to sternal rub. Not responding to questions, not following commands. There is some myoclonic jerking. HEENT: Sclerae are icteric. Oropharynx clear. Mucous membranes moist. NECK: Supple. No lymphadenopat hy or JVD. LUNGS: Clear to auscultation anterolaterally. HEART: S1, S2. ABDOMEN: Soft, nontend er, nondistended. EXTREMITIES: Lower extremities show chronic venous stasis changes. No edema. S KIN: Without rash. NEUROLOGIC: Myoclonic jerking consistent with asterixis. He cannot follow the raising his hand sign. LABORATORY DATA: Sodium 138, potassium 6.2, chloride 104, bicarb 22, BUN 26, creatinine 1.1, glucos e 265. Bilirubin is 5.4, that is primarily unconjugated. AST is 77, ALT is 4.2, alk phosphatase 16 3. His ammonia is 159, this is a high value for him. His LFTs are at baseline. His white count is 8.2, hematocrit 37, platelets are 76,000; all baseline. INR is 1.6, again baseline. Noncontrast head CT shows sequelae of prior right posterior superior craniectomy with encephalomalac ia suggestive of old infarct. No acute intracranial hemorrhage or acute infarct. Mild cerebral cor tical atrophy. An EKG interpreted by me shows sinus at 62 with left axis deviation. There is a left anterior fasci cular block and right bundle branch block, these are not new. ASSESSMENT AND PLAN: A 60-year-old gentleman with recent TIPS, who presents with obtundation. 1. Obtundation. This is consistent with progressive hepatic encephalopathy in the setting of trans jugular intrahepatic portosystemic shunt without medication. I will place a nasogastric tube for la ctulose and add rifaximin. Noncontrast head CT has ruled out bleed. Given his medical complexity, I will check an influenza, chest x-ray, urinalysis and blood cultures. 2. End-stage liver disease. I will hold his diuretics given his elevated BUN. I think this is a p redictable sequela of transjugular intrahepatic portosystemic shunt without prevention of hepatic en cephalopathy. 3. Cardiac: The patient is not on aspirin, presumably due to thrombocytopenia which is at his base line. We will follow. I do not suspect cardiac ischemia as the etiology of this. 4. Code status is full. 5. Diabetes. We will continue his Lantus. We will follow his blood sugars from a low-dose sliding scale. 6. Prophylaxis: Sequential compression devices. DISPOSITION: Inpatient status. /[id number]/MODL
[2016-10-18] MEDS ORDERED: ACETAMINOPHEN 325 MG TAB TUBE PRN (15:29)
[2016-10-18] MEDS ORDERED: ONDANSETRON DISINTEGRATING 4 MG TAB TUBE PRN (15:30)
[2016-10-18] MEDS: LACTULOSE 20 GM/30 ML UDCUP TUBE SCH ×2 (16:02→21:09)
[2016-10-18 16:15] LABS: COLOR AMBER; LEUKOCYTE ESTERASE,URINE NEGATIVE (NEGATIVE); NITRITE,URINE NEGATIVE (NEGATIVE)
[2016-10-18 16:22] LABS: ANION GAP 11 mEq/L (8-16); CALCIUM 9.4 mg/dL (8.5-10.4); CARBON DIOXIDE 22 mEq/l (22-31); CHLORIDE 106 mEq/L (97-110); CREATININE 1.1 mg/dL (0.7-1.3); GLOMERULAR FILTRATION RATE > 60; GLUCOSE 251 mg/dL (70-100); POTASSIUM 5.8 mEq/L (3.5-5.2); SODIUM 139 mEq/L (134-144); SPECIMEN HEMOLYSIS 132
[2016-10-18 16:36] LABS: MUCUS TRACE /lpf (NONE-1+)
[2016-10-18] MEDS: INSULIN LISPRO 100 UNIT/ML SC SCH (17:33)
[2016-10-18] MEDS ORDERED: NON-FORMULARY NEW DRUG (Ranitidine Hcl [Zantac] 150 MG) PO SCH (21:00)
[2016-10-18] MEDS: RIFAXIMIN 550 MG TAB TUBE SCH (21:00)
[2016-10-18] MEDS: FAMOTIDINE 20 MG TAB TUBE SCH (21:09)
[2016-10-18] MEDS: VENLAFAXINE HCL 37.5 MG TAB TUBE SCH (21:09)
[2016-10-18] MEDS: DILTIAZEM 60 MG TAB PO SCH (21:21)
[2016-10-18] MEDS: INSULIN GLARGINE 100 UNITS/ML SYRINGE SC SCH (22:00)
[2016-10-19 05:28] LABS: % IMMATURE GRANULYOCYTES 0.7 % (0.0-1.1); ABSOLUTE IMMATURE GRANULOCYTES 0.04 10^3/uL (0.00-0.10); ADD DIFF? NO; ADD MORPH? NO; ADD SCAN? NO; ATYPICAL LYMPHOCYTE FLAG 10 (0-99); FRAGMENT RBC FLAG 0 (0-99); HEMATOCRIT 35.8 % (40.0-51.0); HEMOGLOBIN 11.8 g/dL (13.7-17.5); LEFT SHIFT FLG 0 (0-99); LIPEMIA HEMOLYSIS FLAG 80 (0-99); MEAN CELL HEMOGLOBIN 30.2 pg (27.9-34.1); MEAN CELL VOLUME 91.6 fL (81.5-99.8); MEAN PLATELET VOLUME 10.9 fL (8.7-11.7); PLATELET CLUMPS FLAG 0 (0-99); PLATELET COUNT 73 10^3/uL (150-400); RED BLOOD CELL COUNT 3.91 10^6/uL (4.40-6.38); RED CELL DISTRIBUTION WIDTH 19.3 % (11.5-15.2)
[2016-10-19 05:40] LABS: INR 1.68 (0.83-1.16); PROTIME(PATIENT) 19.8 SEC (12.0-15.0)
[2016-10-19 06:13] LABS: ALANINE AMINOTRANSFERASE 47 IU/L (21-72); ALBUMIN 3.8 g/dL (3.5-5.0); ALKALINE PHOSPHATASE 138 IU/L (38-126); ANION GAP 12 mEq/L (8-16); ASPARTATE AMINOTRANSFERASE 45 IU/L (17-59); CALCIUM 9.7 mg/dL (8.5-10.4); CARBON DIOXIDE 19 mEq/l (22-31); CHLORIDE 110 mEq/L (97-110); GLOMERULAR FILTRATION RATE > 60; GLUCOSE 231 mg/dL (70-100); POTASSIUM 4.3 mEq/L (3.5-5.2); SODIUM 141 mEq/L (134-144); TOTAL PROTEIN 8.3 g/dL (6.3-8.2)
[2016-10-19 06:19] LABS: BILIRUBIN-CONJUGATED 1.3 mg/dL (0.0-0.5); BILIRUBIN-UNCONJUGATED 3.7 mg/dL (0.0-1.1)
[2016-10-19] MEDS: VENLAFAXINE HCL 37.5 MG TAB TUBE SCH ×2 (08:24→20:30)
[2016-10-19] MEDS: INSULIN LISPRO 100 UNIT/ML SC SCH ×2 (08:24→12:22)
[2016-10-19] MEDS: RIFAXIMIN 550 MG TAB TUBE SCH ×2 (08:24→20:30)
[2016-10-19] MEDS: FAMOTIDINE 20 MG TAB TUBE SCH ×2 (08:24→20:30)
[2016-10-19] MEDS: PROPRANOLOL HCL 20 MG TAB TUBE SCH (08:25)
[2016-10-19] MEDS: LACTULOSE 20 GM/30 ML UDCUP TUBE SCH ×10 (08:26→23:06)
[2016-10-19] MEDS: DILTIAZEM 60 MG TAB PO SCH (08:27)
[2016-10-19] MEDS ORDERED: VENLAFAXINE XR 37.5 MG CAP PO SCH (09:00)
--- NOTE | 2016-10-19 09:13 | HOSPPROG ---
Hospitalist Progress Note Assessment/Plan: 60 yo M w cryptogenic cirrhosis, recent TIPS here w hepatic encephalopathy hepatic encephalopathy: due to cessation of lactulose lactulose q2 until bm or alertness rifaxmin delirium: head CT without bleed and infectious workup neg reasonably attributable to above hematuria: 2/2 thrombocytopenia and coagulopathy in setting of burris proph: scd's pharm VTE proph contraindicated by low plts and coagulopathy dm: continue lantus sugars > goal, but will hold on additional insulin until he is eating code: full dispo: ok for step down Subjective: case d/w dr morales. tele: no events (interp by me) Objective: Vital Signs Temp Pulse Resp BP Pulse Ox 36.9 C 80 19 134/58 H 100 10/19/16 08:00 10/19/16 08:25 10/19/16 08:00 10/19/16 08:25 10/19/16 08:00 Laboratory Results 10/19/16 04:40 10/19/16 04:40 10/18/16 10/19/16 10/20/16 05:59 05:59 05:59 Intake Total 0 Output Total 725 Balance -725 PT 19.8 SEC (12.0-15.0) H 10/19/16 04:40 INR 1.68 (0.83-1.16) H 10/19/16 04:40 - Physical Exam Constitutional: no apparent distress, appears nourished, chronically ill appearing Eyes: PERRL, icteric sclera Ears, Nose, Mouth, Throat: moist mucous membranes, hearing normal Cardiovascular: regular rate and rhythym, no murmur, rub, or gallop Respiratory: no respiratory distress, no rales or rhonchi Gastrointestinal: No guarding (minimal ascites), No rebound, No distension Genitourinary: burris in urethra, other (pink/red urine) Skin: warm, normal color Musculoskeletal: full muscle strength, no muscle tenderness Neurologic: sensation intact bilaterally, asterixes, No AAOx3 Psychiatric: not anxious, No interacting appropriately Lymph, Heme, Immunologic: no cervical LAD ICD10 Worksheet Patient Problems: Problems Problem Status Onset Altered mental status Acute Hyperammonemia Acute Liver failure Acute Anemia Acute Ascites Acute Cirrhosis Acute Jaundice Acute Nausea & vomiting Acute Thrombocytopenia Acute
[2016-10-19] MEDS: INSULIN GLARGINE 100 UNITS/ML SYRINGE SC SCH ×2 (09:56→20:30)
--- NOTE | 2016-10-19 10:08 | GCON ---
[f rep st] CONSULTATION CASH SPECIALIST CONSULTATION REASON FOR ADMISSION: Altered mental status. HISTORY OF PRESENT ILLNESS: The patient is a 60-year-old white male with an extensive past medical history, including cryptogenic cirrhosis requiring a recent TIPS procedure. He also has coronary ar herson disease with stents, depression, hyperlipidemia, esophageal varices, pacemaker. He presented w ith altered mental status. He became confused the night before and then subsequently unresponsive. Since his discharge for his TIPS procedure, he had not been taking any lactulose. Currently, he is somewhat agitated and unresponsive. All history is gleaned from the medical record. PAST MEDICAL HISTORY: As above. ALLERGIES: No known to medications. SOCIAL HISTORY: No alcohol use. Previous heavy smoker. He lives with his and has excellent [facility] support. MEDICATIONS: At home include diltiazem, spironolactone, Lasix, lactulose, Lantus, simvastatin, and ranitidine. PHYSICAL EXAM: VITAL SIGNS: Blood pressure is 134/58, pulse is 80, respirations 19, temperature 36 .9, oxygen saturation 100% on room air. GENERAL: He is a well-developed 60-year-old white male who is obtunded and somewhat agitated. HEENT: Eyes: USHA. EOMI. Throat shows no erythema or tonsil lar hypertrophy. NECK: Supple. There is no cervical adenopathy. HEART: Regular rate and rhythm with a 2/6 systolic murmur at the left sternal border without radiation. LUNGS: Diminished breath sounds but no wheeze. ABDOMEN: Distended. Bowel sounds are diminished. EXTREMITIES: No clubbing , cyanosis, or edema. LABORATORY DATA: White count is 5.6, hemoglobin 11, hematocrit 35, platelet count is 73. INR is 1. 68. Sodium is 141, potassium 4.3, chloride 110, CO2 is 19, BUN is 33, creatinine is 1, glucose is 2 31. Ammonia level is 123, down from 159. Urinalysis is negative. Influenza A and B are negative. IMPRESSION: 1. Hepatic encephalopathy. 2. End-stage liver disease. 3. Status post TIPS procedure. 4. History of coronary artery disease. 5. Depression. 6. Diabetes. 7. History of esophageal varices. 8. Coagulopathy. 9. Thrombocytopenia. RECOMMENDATIONS: 1. Agree with increasing lactulose. 2. DVT and PE prophylaxis. 3. Stress ulcer prophylaxis. 4. Aggressive blood sugar control. 5. Monitoring laboratories closely. /[id number]/MODL
--- NOTE | 2016-10-19 11:02 | WOCRNPDOC ---
WOCRN Advanced Assessment Note - Skin Integrity Problem, Advanced Assess Left Second Finger Laceration Dressing Type: Adaptic Touch, Jeff Dressing Description: Clean/Dry, Intact Exudate Amount: Scant Exudate Color: Reddish/Yellow Exudate Characteristic(s): Serosanguinous Lolis Wound Tissue: Swollen, Intact, Painful/Tender Lolis Wound Swelling: Mild Wound Bed Color: Red Wound Bed Constitution: Granulation Tissue Wound Edges: Epithelizing Site Odor: None Site Measurement - Head-to-Toe Length X Width X Depth (cm): [id number] Skin Integrity Problem Comment: Linear, healing laceration noted to lateral 2nd finger. Epithelialization noted along margins, minimal exudate, and mild swelling noted. Advised uat tester Sadie to apply protective foam dressing to site. Wound care will continue to follow. Coccyx Dressing Type: Allevyn Life (sacral dressing) Dressing Description: Clean/Dry, Intact Exudate Amount: None Exudate Characteristic(s): None Integumentary Issue Intervention: Visualized Under Dressing Lolis Wound Tissue: Blanching, Intact Lolis Wound Swelling: None Wound Bed Color: Red Site Odor: None Site Measurement - Head-to-Toe Length X Width X Depth (cm): [id number] Skin Integrity Problem Comment: Small, blanching area of erythema noted to the L of patient's coccyx, presently intact. Re-covered site w/ protective foam dressing. Advised uat tester Sadie to leave dresssing in place until patient ambulatory/able to reposition self.
[2016-10-19] MEDS ORDERED: PARAMETERS MISC PRN (16:28)
[2016-10-19] MEDS ORDERED: NS 1,000 ML IV SCH (16:30)
[2016-10-19] MEDS: INSULIN REGULAR, HUMAN 100 UNIT/1 ML VIAL STANDARD SC SCH (17:58)
[2016-10-20] MEDS: INSULIN REGULAR, HUMAN 100 UNIT/1 ML VIAL STANDARD SC SCH ×2 (00:31→05:56)
[2016-10-20] MEDS: LACTULOSE 20 GM/30 ML UDCUP TUBE SCH ×2 (02:23→08:39)
[2016-10-20 04:30] LABS: % IMMATURE GRANULYOCYTES 0.6 % (0.0-1.1); ABSOLUTE IMMATURE GRANULOCYTES 0.04 10^3/uL (0.00-0.10); ADD DIFF? NO; ADD MORPH? NO; ADD SCAN? NO; ATYPICAL LYMPHOCYTE FLAG 30 (0-99); FRAGMENT RBC FLAG 0 (0-99); HEMATOCRIT 36.6 % (40.0-51.0); HEMOGLOBIN 12.1 g/dL (13.7-17.5); LEFT SHIFT FLG 0 (0-99); LIPEMIA HEMOLYSIS FLAG 80 (0-99); MEAN CELL HEMOGLOBIN 30.7 pg (27.9-34.1); MEAN CELL HEMOGLOBIN CONCENTR. 33.1 g/dL (32.4-36.7); MEAN CELL VOLUME 92.9 fL (81.5-99.8); MEAN PLATELET VOLUME 10.2 fL (8.7-11.7); PLATELET CLUMPS FLAG 0 (0-99); PLATELET COUNT 53 10^3/uL (150-400); RED BLOOD CELL COUNT 3.94 10^6/uL (4.40-6.38); RED CELL DISTRIBUTION WIDTH 18.8 % (11.5-15.2)
[2016-10-20 04:42] LABS: ALANINE AMINOTRANSFERASE 50 IU/L (21-72); ALBUMIN 3.7 g/dL (3.5-5.0); ALKALINE PHOSPHATASE 131 IU/L (38-126); ANION GAP 13 mEq/L (8-16); ASPARTATE AMINOTRANSFERASE 43 IU/L (17-59); BILIRUBIN,TOTAL 5.1 mg/dL (0.1-1.4); CALCIUM 9.3 mg/dL (8.5-10.4); CARBON DIOXIDE 15 mEq/l (22-31); CHLORIDE 120 mEq/L (97-110); CREATININE 0.9 mg/dL (0.7-1.3); GLOMERULAR FILTRATION RATE > 60; GLUCOSE 165 mg/dL (70-100); POTASSIUM 3.7 mEq/L (3.5-5.2); SODIUM 148 mEq/L (134-144); TOTAL PROTEIN 8.2 g/dL (6.3-8.2)
[2016-10-20 04:53] LABS: INR 1.76 (0.83-1.16); PROTIME(PATIENT) 20.6 SEC (12.0-15.0)
[2016-10-20 05:05] LABS: BILIRUBIN-CONJUGATED 1.3 mg/dL (0.0-0.5); BILIRUBIN-UNCONJUGATED 3.8 mg/dL (0.0-1.1)
[2016-10-20] MEDS: RIFAXIMIN 550 MG TAB TUBE SCH ×2 (08:39→21:27)
[2016-10-20] MEDS: PROPRANOLOL HCL 20 MG TAB TUBE SCH (08:39)
[2016-10-20] MEDS: VENLAFAXINE HCL 37.5 MG TAB TUBE SCH ×2 (08:40→21:27)
[2016-10-20] MEDS: FAMOTIDINE 20 MG TAB TUBE SCH ×2 (08:41→21:26)
--- NOTE | 2016-10-20 09:28 | PDINTPN ---
Accounting Methods Analyst Progress Note Assessment/Plan: Assessment: * Hepatic encephalopathy-patient markedly improved, and is awake and alert. His ammonia level is markedly reduced. He had 6 bowel movements yesterday evening. * Cryptogenic cirrhosis * Coagulopathy-INR currently stable * Hematuria * Coronary artery disease * Depression * Diabetes-blood sugars well controlled Plan: Okay for transfer to [facility] [place] Subjective: Patient is sitting up in chair, he is awake and alert and comfortable. He complains of being hungry Objective: Vital Signs Temp Pulse Resp BP Pulse Ox 36.4 C 65 16 156/61 H 100 10/20/16 08:00 10/20/16 08:39 10/20/16 08:00 10/20/16 08:39 10/20/16 08:00 Laboratory Results 10/20/16 04:10 10/20/16 04:10 10/19/16 10/20/16 10/21/16 05:59 05:59 05:59 Intake Total 0 148 Output Total 725 1350 Balance -725 -1202 PT 20.6 SEC (12.0-15.0) H 10/20/16 04:10 INR 1.76 (0.83-1.16) H 10/20/16 04:10 Laboratory Results 10/20/16 04:10 10/20/16 04:10 10/20/16 10/20/16 10/20/16 04:10 04:10 04:10 PT 20.6 SEC H SEC (12.0 - 15.0) INR 1.76 H (0.83 - 1.16) Calcium 9.3 mg/dL mg/dL (8.5 - 10.4) Total Bilirubin 5.1 mg/dL H mg/dL (0.1 - 1.4) Conjugated Bilirubin 1.3 mg/dL H mg/dL (0.0 - 0.5) Unconjugated Bilirubin 3.8 mg/dL H mg/dL (0.0 - 1.1) AST 43 IU/L IU/L (17 - 59) ALT 50 IU/L IU/L (21 - 72) Alkaline Phosphatase 131 IU/L H IU/L (38 - 126) Ammonia 61.0 uMOL/L H uMOL/L (9.0 - 30.0) Total Protein 8.2 g/dL g/dL (6.3 - 8.2) Albumin 3.7 g/dL g/dL (3.5 - 5.0) Lipase Specimen Hemolysis 10/18/16 10/18/16 11:00 10:58 PT INR Calcium 9.9 mg/dL mg/dL (8.5 - 10.4) Total Bilirubin 5.4 mg/dL H mg/dL (0.1 - 1.4) Conjugated Bilirubin 1.4 mg/dL H mg/dL (0.0 - 0.5) Unconjugated Bilirubin 4.0 mg/dL H mg/dL (0.0 - 1.1) AST 77 IU/L H IU/L (17 - 59) ALT 42 IU/L IU/L (21 - 72) Alkaline Phosphatase 163 IU/L H IU/L (38 - 126) Ammonia 159.0 uMOL/L H uMOL/L (9.0 - 30.0) Total Protein 10.0 g/dL H g/dL (6.3 - 8.2) Albumin 4.7 g/dL g/dL (3.5 - 5.0) Lipase 125.0 IU/L IU/L (23 - 300) Specimen Hemolysis 162 Physical Exam - Physical Exam General Appearance: alert, no apparent distress EENT: PERRL/EOMI, normal ENT inspection Neck: non-tender, full range of motion, supple, normal inspection Respiratory: chest non-tender, lungs clear, normal breath sounds Cardiac/Chest: normal peripheral pulses, regular rate, rhythm, systolic murmur Peripheral Pulses: 2+: carotid (R), carotid (L), femoral (R), femoral (L), dorsalis-pedis (R), dorsalis-pedis (L) Abdomen: normal bowel sounds, non-tender, soft Male Genitalia: deferred Rectal: deferred Skin: normal color, warm/dry Extremities: normal range of motion, non-tender, normal inspection, normal capillary refill ICD10 Worksheet Patient Problems: Problems Problem Status Onset Altered mental status Acute Hyperammonemia Acute Liver failure Acute Anemia Acute Ascites Acute Cirrhosis Acute Jaundice Acute Nausea & vomiting Acute Thrombocytopenia Acute
--- NOTE | 2016-10-20 10:06 | HOSPPROG ---
Hospitalist Progress Note Assessment/Plan: 60 yo M w cryptogenic cirrhosis, recent TIPS here w hepatic encephalopathy hepatic encephalopathy: much improved continue rifaximin and lactulose delirium: resolved w bm's = hepatic encephalopathy hematuria: 2/2 thrombocytopenia and coagulopathy in setting of burris proph: scd's pharm VTE proph contraindicated by low plts and coagulopathy dm: continue lantus sugars > goal, but will hold on additional insulin until he is eating code: full dispo: inpatient to floor today Subjective: many bm's overnight and now alert. case d/w dr morales. tele: no events (interp by me) Objective: Vital Signs Temp Pulse Resp BP Pulse Ox 36.4 C 65 16 156/61 H 100 10/20/16 08:00 10/20/16 08:39 10/20/16 08:00 10/20/16 08:39 10/20/16 08:00 Laboratory Results 10/20/16 04:10 10/20/16 04:10 10/19/16 10/20/16 10/21/16 05:59 05:59 05:59 Intake Total 0 148 Output Total 725 1350 Balance -725 -1202 PT 20.6 SEC (12.0-15.0) H 10/20/16 04:10 INR 1.76 (0.83-1.16) H 10/20/16 04:10 - Physical Exam Constitutional: no apparent distress, appears nourished Eyes: PERRL, anicteric sclera Ears, Nose, Mouth, Throat: moist mucous membranes, hearing normal, other (NGT) Cardiovascular: regular rate and rhythym, no murmur, rub, or gallop Respiratory: no respiratory distress, no rales or rhonchi Gastrointestinal: normoactive bowel sounds, soft, non-tender abdomen Genitourinary: No burris in urethra Skin: warm, normal color Musculoskeletal: full muscle strength, no muscle tenderness Neurologic: AAOx3, other (much more alert than yesterday) Psychiatric: interacting appropriately, not anxious Lymph, Heme, Immunologic: no cervical LAD ICD10 Worksheet Patient Problems: Problems Problem Status Onset Altered mental status Acute Hyperammonemia Acute Liver failure Acute Anemia Acute Ascites Acute Cirrhosis Acute Jaundice Acute Nausea & vomiting Acute Thrombocytopenia Acute
[2016-10-20] MEDS: INSULIN GLARGINE 100 UNITS/ML SYRINGE SC SCH ×2 (10:56→21:27)
[2016-10-20] MEDS: INSULIN LISPRO 100 UNIT/ML SC SCH ×2 (12:03→16:23)
[2016-10-20] MEDS: LACTULOSE 20 GM/30 ML UDCUP PO SCH ×3 (12:03→21:27)
[2016-10-21] MEDS: LACTULOSE 20 GM/30 ML UDCUP PO SCH ×4 (04:09→22:15)
[2016-10-21 06:12] LABS: % IMMATURE GRANULYOCYTES 0.9 % (0.0-1.1); ABSOLUTE IMMATURE GRANULOCYTES 0.06 10^3/uL (0.00-0.10); ADD DIFF? NO; ADD MORPH? NO; ADD SCAN? NO; ATYPICAL LYMPHOCYTE FLAG 30 (0-99); FRAGMENT RBC FLAG 0 (0-99); HEMATOCRIT 33.3 % (40.0-51.0); LEFT SHIFT FLG 0 (0-99); LIPEMIA HEMOLYSIS FLAG 80 (0-99); MEAN CELL HEMOGLOBIN 30.4 pg (27.9-34.1); MEAN PLATELET VOLUME 10.1 fL (8.7-11.7); PLATELET CLUMPS FLAG 0 (0-99); RED BLOOD CELL COUNT 3.62 10^6/uL (4.40-6.38); RED CELL DISTRIBUTION WIDTH 19.4 % (11.5-15.2)
[2016-10-21 06:17] LABS: PLATELET COUNT 44 10^3/uL (150-400)
[2016-10-21 06:23] LABS: INR 1.77 (0.83-1.16); PROTIME(PATIENT) 20.7 SEC (12.0-15.0)
[2016-10-21 06:40] LABS: PLATELET ESTIMATE DECREASED (ADEQ)
[2016-10-21 06:41] LABS: ALANINE AMINOTRANSFERASE 49 IU/L (21-72); ALBUMIN 3.2 g/dL (3.5-5.0); ALKALINE PHOSPHATASE 107 IU/L (38-126); ANION GAP 11 mEq/L (8-16); ASPARTATE AMINOTRANSFERASE 40 IU/L (17-59); BILIRUBIN,TOTAL 4.5 mg/dL (0.1-1.4); CALCIUM 8.7 mg/dL (8.5-10.4); CARBON DIOXIDE 17 mEq/l (22-31); CHLORIDE 113 mEq/L (97-110); CREATININE 0.9 mg/dL (0.7-1.3); GLOMERULAR FILTRATION RATE > 60; GLUCOSE 185 mg/dL (70-100); POTASSIUM 3.5 mEq/L (3.5-5.2); SODIUM 141 mEq/L (134-144); TOTAL PROTEIN 7.2 g/dL (6.3-8.2)
[2016-10-21 06:47] LABS: BILIRUBIN-CONJUGATED 0.9 mg/dL (0.0-0.5); BILIRUBIN-UNCONJUGATED 3.6 mg/dL (0.0-1.1)
[2016-10-21] MEDS ORDERED: ONDANSETRON DISINTEGRATING 4 MG TAB PO PRN (07:59)
[2016-10-21] MEDS ORDERED: ACETAMINOPHEN 325 MG TAB PO PRN (08:00)
--- NOTE | 2016-10-21 08:30 | HOSPPROG ---
Hospitalist Progress Note Assessment/Plan: #Hepatic encephalopathy: resolved. Cont Lactulose, rifaximin #Cryptogenic cirrhosis: recent TIPs procedure #Thrombocytopenia: no hematuria overnight #Uncontrolled DMII: glargine 70U BID, SSI #Deconditioning: working with PT, may need SNF #SCDs: SCDs #Disp: cont PT, may warrant SNF at DC Subjective: feeling more like self today Objective: Vital Signs Temp Pulse Resp BP Pulse Ox 36.6 C 60 20 134/58 H 98 10/21/16 07:41 10/21/16 07:41 10/21/16 07:41 10/21/16 07:41 10/21/16 07:41 Laboratory Results 10/21/16 06:07 10/21/16 06:07 10/20/16 10/21/16 10/22/16 05:59 05:59 05:59 Intake Total 148 2500 Output Total 1350 Balance -1202 2500 PT 20.7 SEC (12.0-15.0) H 10/21/16 06:07 INR 1.77 (0.83-1.16) H 10/21/16 06:07 - Physical Exam Constitutional: no apparent distress Eyes: PERRL Ears, Nose, Mouth, Throat: moist mucous membranes Cardiovascular: regular rate and rhythym Respiratory: no respiratory distress Gastrointestinal: normoactive bowel sounds, soft, non-tender abdomen, no palpable masses Skin: warm Musculoskeletal: generalized weakness Neurologic: AAOx3, asterixes (no asterixis) Psychiatric: interacting appropriately ICD10 Worksheet Patient Problems: Problems Problem Status Onset Ascites Acute Thrombocytopenia Acute Anemia Acute Cirrhosis Acute Nausea & vomiting Acute Jaundice Acute Hyperammonemia Acute Altered mental status Acute Liver failure Acute
[2016-10-21] MEDS: VENLAFAXINE XR 37.5 MG CAP PO SCH (08:42)
[2016-10-21] MEDS: FAMOTIDINE 20 MG TAB PO SCH ×2 (08:42→22:17)
[2016-10-21] MEDS: INSULIN LISPRO 100 UNIT/ML SC SCH ×4 (08:42→22:16)
[2016-10-21] MEDS: RIFAXIMIN 550 MG TAB PO SCH ×2 (08:42→22:16)
[2016-10-21] MEDS: INSULIN GLARGINE 100 UNITS/ML SYRINGE SC SCH ×2 (08:42→22:15)
[2016-10-21] MEDS: PROPRANOLOL HCL 20 MG TAB PO SCH (08:47)
[2016-10-21] MEDS: DILTIAZEM 60 MG TAB PO SCH ×3 (11:09→22:16)
[2016-10-21] MEDS ORDERED: D50W 25 GM/50 ML SYR IVP PRN (17:01)
[2016-10-21 23:44] LABS: GLUCOSE 288 mg/dL (70-100)
[2016-10-22] MEDS: LACTULOSE 20 GM/30 ML UDCUP PO SCH ×5 (04:33→21:00)
[2016-10-22] MEDS: PROPRANOLOL HCL 20 MG TAB PO SCH (10:08)
[2016-10-22] MEDS: FAMOTIDINE 20 MG TAB PO SCH ×2 (10:08→21:00)
[2016-10-22] MEDS: DILTIAZEM 60 MG TAB PO SCH ×2 (10:08→21:00)
[2016-10-22] MEDS: RIFAXIMIN 550 MG TAB PO SCH ×2 (10:09→21:00)
[2016-10-22] MEDS: VENLAFAXINE XR 37.5 MG CAP PO SCH (10:09)
[2016-10-22] MEDS: INSULIN GLARGINE 100 UNITS/ML SYRINGE SC SCH ×2 (10:42→21:00)
--- NOTE | 2016-10-22 11:47 | WOCRNPDOC ---
WOCRN Advanced Assessment Note - Skin Integrity Problem, Advanced Assess Left Second Finger Laceration Dressing Type: Open to Air Closure Description: Not Approximated (0.1cm gap noted along laceration) Exudate Amount: Scant Exudate Color: Reddish/Yellow Exudate Characteristic(s): Serosanguinous Integumentary Issue Intervention: Dressing Applied Lolis Wound Tissue: Intact Lolis Wound Swelling: Mild Wound Bed Color: Brown, Red Wound Edges: Epithelizing Site Odor: None Site Measurement - Head-to-Toe Length X Width X Depth (cm): 2cmx0.1cmx0.1cm Skin Integrity Problem Comment: Linear laceration noted, w/ scant serosanguinous exudate along wound bed. This is a healing laceration, which might have benefitted from primary closure when it first occurred. Presently, the wound is epithelializing along the edges, but there is a slight 0.1cm granulating trough between intact tissues on either side. No erythema or associated swelling observed. Discussed w/ patient the importance of keeping the site clean and covered.
[2016-10-22] MEDS: INSULIN LISPRO 100 UNIT/ML SC SCH ×2 (12:03→17:06)
[2016-10-22] MEDS ORDERED: BISACODYL 10 MG SUPP PR ONE (14:34)
[2016-10-22 14:54] LABS: HEMATOCRIT 33.8 % (40.0-51.0); HEMOGLOBIN 11.3 g/dL (13.7-17.5); LIPEMIA HEMOLYSIS FLAG 80 (0-99); MEAN CELL HEMOGLOBIN 30.5 pg (27.9-34.1); MEAN CELL HEMOGLOBIN CONCENTR. 33.4 g/dL (32.4-36.7); MEAN CELL VOLUME 91.1 fL (81.5-99.8); PLATELET CLUMPS FLAG 0 (0-99); RED BLOOD CELL COUNT 3.71 10^6/uL (4.40-6.38); RED CELL DISTRIBUTION WIDTH 19.9 % (11.5-15.2)
[2016-10-22 15:10] LABS: PLATELET COUNT 45 10^3/uL (150-400)
[2016-10-22 15:22] LABS: ANION GAP 11 mEq/L (8-16); CALCIUM 9.8 mg/dL (8.5-10.4); CARBON DIOXIDE 21 mEq/l (22-31); CHLORIDE 105 mEq/L (97-110); CREATININE 0.9 mg/dL (0.7-1.3); GLOMERULAR FILTRATION RATE > 60; GLUCOSE 267 mg/dL (70-100); POTASSIUM 4.7 mEq/L (3.5-5.2); SODIUM 137 mEq/L (134-144)
[2016-10-22] MEDS ORDERED: D50W 25 GM/50 ML SYR IVP PRN (15:51)
--- NOTE | 2016-10-22 15:55 | HOSPPROG ---
Hospitalist Progress Note Assessment/Plan: #Hepatic encephalopathy: resolved. Cont Lactulose, rifaximin. Had BM today -titrate lactulose to 3-4 BMs daily #Cryptogenic cirrhosis: recent TIPs procedure #Thrombocytopenia: no hematuria overnight #Uncontrolled DMII: hypoglycemic overnight <70. Got 10 units lispro late last night. Held morning Lantus, resume this evening at lower dose 50 units #Deconditioning: working with PT, may need SNF #SCDs: SCDs #Disp: DC once have consistent BMs, hopeful in next 1-2 days. feels like she can care for him at home Subjective: no N/V Objective: Vital Signs Temp Pulse Resp BP Pulse Ox 36.6 C 59 L 16 135/61 H 99 10/22/16 15:11 10/22/16 15:11 10/22/16 15:11 10/22/16 15:11 10/22/16 15:11 Laboratory Results 10/22/16 14:30 10/22/16 14:30 10/21/16 10/22/16 10/23/16 05:59 05:59 05:59 Intake Total 2500 1093 468 Output Total 650 Balance 2500 1093 -182 PT 20.7 SEC (12.0-15.0) H 10/21/16 06:07 INR 1.77 (0.83-1.16) H 10/21/16 06:07 - Physical Exam Constitutional: no apparent distress Eyes: PERRL Ears, Nose, Mouth, Throat: moist mucous membranes Cardiovascular: regular rate and rhythym Respiratory: no respiratory distress Gastrointestinal: tenderness (no TTP), distension Genitourinary: no bladder fullness Skin: warm Musculoskeletal: full muscle strength Neurologic: AAOx3, asterixes (no asterixis), CN II-XII Intact Psychiatric: interacting appropriately ICD10 Worksheet Patient Problems: Problems Problem Status Onset Altered mental status Acute Hyperammonemia Acute Liver failure Acute Anemia Acute Ascites Acute Cirrhosis Acute Jaundice Acute Nausea & vomiting Acute Thrombocytopenia Acute
[2016-10-22 16:02] LABS: PLATELET ESTIMATE DECREASED (ADEQ)
[2016-10-23 00:03] VITALS: PULSE 60
[2016-10-23] MEDS: LACTULOSE 20 GM/30 ML UDCUP PO SCH ×3 (01:06→08:00)
[2016-10-23 05:35] LABS: HEMATOCRIT 29.9 % (40.0-51.0); HEMOGLOBIN 10.4 g/dL (13.7-17.5); LIPEMIA HEMOLYSIS FLAG 90 (0-99); MEAN CELL HEMOGLOBIN 31.3 pg (27.9-34.1); MEAN CELL HEMOGLOBIN CONCENTR. 34.8 g/dL (32.4-36.7); MEAN CELL VOLUME 90.1 fL (81.5-99.8); PLATELET CLUMPS FLAG 0 (0-99); RED BLOOD CELL COUNT 3.32 10^6/uL (4.40-6.38)
[2016-10-23 05:52] LABS: ANION GAP 10 mEq/L (8-16); CALCIUM 9.4 mg/dL (8.5-10.4); CARBON DIOXIDE 20 mEq/l (22-31); CHLORIDE 109 mEq/L (97-110); CREATININE 0.7 mg/dL (0.7-1.3); GLOMERULAR FILTRATION RATE > 60; GLUCOSE 156 mg/dL (70-100); SODIUM 139 mEq/L (134-144)
[2016-10-23 05:55] LABS: PLATELET COUNT 32 10^3/uL (150-400)
[2016-10-23 06:32] LABS: PLATELET ESTIMATE DECREASED (ADEQ)
[2016-10-23] MEDS: PROPRANOLOL HCL 20 MG TAB PO SCH (07:59)
[2016-10-23] MEDS: VENLAFAXINE XR 37.5 MG CAP PO SCH (07:59)
[2016-10-23] MEDS: DILTIAZEM 60 MG TAB PO SCH (08:00)
[2016-10-23] MEDS: RIFAXIMIN 550 MG TAB PO SCH (08:00)
[2016-10-23] MEDS: FAMOTIDINE 20 MG TAB PO SCH (08:00)
[2016-10-23] MEDS: INSULIN GLARGINE 100 UNITS/ML SYRINGE SC SCH (08:02)
[2016-10-23] MEDS: INSULIN LISPRO 100 UNIT/ML SC SCH (08:04)
[2016-10-23 09:05] VITALS: BP 124/62; RESP 16; TEMP 98.7; O2SAT 97
--- NOTE | 2016-10-23 15:01 | GDS ---
[f rep st] DISCHARGE SUMMARY DISCHARGE DIAGNOSES: 1. Acute hepatic encephalopathy. 2. Cryptogenic cirrhosis. 3. Uncontrolled diabetes mellitus type 2. 4. Deconditioning. CONSULTATION: Critical Care. PHYSICAL EXAM: GENERAL: The patient is alert. VITAL SIGNS: Afebrile at 37.1, pulse is 60, respir atory rate 16, blood pressure is 124/62. He is saturating 97% on room air. I have seen and evaluated the patient on the day of discharge. HOSPITAL COURSE: The patient is a 60-year-old male, who has a history of cryptogenic cirrhosis, pre senting with acute altered mental status. He was evaluated and diagnosed with: 1. Acute hepatic encephalopathy. This has resolved throughout this patient's hospitalization. He was initiated on lactulose, as well as an increased dose of Rifaximin. He will continue the lactulo se at the time of disposition. Continue supportive care. His mentation has completely returned to normal. 2. Cryptogenic cirrhosis. The patient did just recently receive a TIPS procedure. He will follow up with his primary doctor, Dr. Lawler. 3. Thrombocytopenia. There are no signs of bleeding at this time. This is stable with the patient 's chronic condition. 4. Uncontrolled diabetes mellitus type 2. We have continued Lantus 50 units, and he will continue his regular regimen of diabetic medications in the outpatient setting. 5. Deconditioning. He refuses longterm facility at this time. His would like to take him home and feels that she can manage and care for him. 6. Disposition. The patient will be discharged home, independently, with his . Home care has been offered to the patient at the time of disposition, as well as longterm facility. He and are denying both options. DISCHARGE MEDICATIONS: I have provided him a prescription for lactulose 20 g p.o. q.4 hours, as wel l as Rifaximin 550 mg p.o. b.i.d. His other home medications have been re-initiated within the best of my knowledge. Please refer to EMR form for further specific medication details. He has been re -intiated on his diuretic medications prior to disposition. Follow up will be with Dr. Lawler. I spent greater than 35 minutes in the care, coordination, and management of the patient's dispositi on. /[id number]/MODL
== END 2016-10-23 11:01 | disposition home or self-care (01) | DRG 443 ==
LOC: F2N 13:27 → F3E 10-21 17:18
PROVIDERS: ADMIT Internal Medicine; ATTEND Internal Medicine
DX: K72.00 Acute and subacute hepatic failure without coma (principal); K74.69 Other cirrhosis of liver; E11.9 Type 2 diabetes mellitus without complications; D69.6 Thrombocytopenia, unspecified; I25.10 Atherosclerotic heart disease of native coronary artery without angina pectoris; I10 Essential (primary) hypertension; E78.5 Hyperlipidemia, unspecified; Z95.5 Presence of coronary angioplasty implant and graft; Z95.0 Presence of cardiac pacemaker
CPT/HCPCS: 82947-QW; 97116-GP; 97161-GP; 97166-GO; 97532-GO; 97535-GO; G8978-GP-CI; G8979-GP-CI; G8987-GO-CK; G8988-GO-CJ; J1815

== ENCOUNTER → 2017-03-02 | Outpatient (CLI) | payer OTHER | LOC: FIMAGING 12:17 | PROVIDERS: ATTEND Internal Medicine | DX: K74.69 Other cirrhosis of liver (principal) ==

== ENCOUNTER → 2017-05-04 | Outpatient (CLI) | payer OTHER | LOC: FIMAGING 12:11 | PROVIDERS: ATTEND Internal Medicine ==

== ENCOUNTER 2017-06-03 12:12 | Inpatient (IN) | payer OTHER ==
--- NOTE | 2017-06-03 13:13 | EDPHY ---
H & P Stated Complaint: Increased swelling to bilat hands and feet for over a week. Increased cough Time Seen by Provider: 06/03/17 12:56 HPI/ROS: CHIEF COMPLAINT: Edema, 10 lb weight gain HISTORY OF PRESENT ILLNESS: The patient is a 61-year-old man with a history of cardiovascular disease with 2 stents and a pacemaker but no history of CHF. Also history of cirrhosis status post tips procedure earlier this year. He is also diabetes and has a history of a traumatic brain injury with seizures. He is brought to the emergency department by his complaining of swelling in all of his extremities over the last week and a half. He has had a 10 lb weight gain. No fever. The patient complains of pain in his feet and hands because of the swelling. He bumped his right arm 2 days ago and has some minor bleeding and mild erythema the right forearm. He denies fevers. He denies chest pain or shortness of breath. He denies abdominal pain, nausea vomiting or diarrhea. He correlates the onset of his symptoms with the change in his diabetes medication. He states that he was switched from Humalog to U 500 twice daily. The next day he began having this edema. He is followed up with his primary Dr Collier who did not think that the medication is responsible. REVIEW OF SYSTEMS: Constitutional: denies: chills, fever, recent illness, recent injury EENTM: denies: blurred vision, double vision, nose congestion Respiratory: denies: cough, shortness of breath Cardiac: denies: chest pain, irregular heart rate, lightheadedness, palpitations Gastrointestinal/Abdominal: denies: abdominal pain, diarrhea, nausea, vomiting, blood streaked stools Genitourinary: denies: dysuria, frequency, hematuria, pain Musculoskeletal: denies: joint pain, muscle pain Skin: See HPI Neurological: denies: headache, numbness, paresthesia, tingling, dizziness, weakness Hematologic/Lymphatic: denies: blood clots, easy bleeding, easy bruising Immunologic/allergic: denies: HIV/AIDS, transplant EXAM: GENERAL: Well-appearing, well-nourished and in no acute distress. HEAD: Atraumatic, normocephalic. EYES: Pupils equal round and reactive to light, extraocular movements intact, sclera anicteric, conjunctiva are normal. ENT: TMs normal, nares patent, oropharynx clear without exudates. Moist mucous membranes. NECK: Normal range of motion, supple without lymphadenopathy or JVD. LUNGS: Breath sounds clear to auscultation bilaterally and equal. No wheezes rales or rhonchi. HEART: Regular rate and rhythm without murmurs, rubs or gallops. ABDOMEN: Soft, nontender, normoactive bowel sounds. No guarding, no rebound. No masses appreciated. BACK: No CVA tenderness, no spinal tenderness, step-offs or deformities EXTREMITIES: 2+ pitting edema in all extremities. NEUROLOGICAL: Cranial nerves II through XII grossly intact. Normal speech, normal gait. 5/5 strength, normal movement in all extremities, normal sensation PSYCH: Normal mood, normal affect. SKIN: Right forearm with mild erythema and warmth and minimal bleeding. Source: Patient Exam Limitations: No limitations - Personal History Current Tetanus Diphtheria and Acellular Pertussis (TDAP): Yes - Medical/Surgical History Hx Asthma: No Hx Chronic Respiratory Disease: No Hx Diabetes: Yes Hx Cardiac Disease: Yes Hx Renal Disease: No Hx Cirrhosis: Yes Hx Alcoholism: No Hx HIV/AIDS: No Hx Splenectomy or Spleen Trauma: No Other PMH: PACEMAKER, STENTX2, DMii, CIRRHOSIS, ESOPHAGEAL VARICES, hypertension , hyperlipidemia. 2 HEAD SURGERY- PLATE , S/P FALL OFF MOUNTAIN CHILD- TBI- FORGETFUL, DIFF READING,. seizure c CVA (unknown date- denies deficits), TIPS procedure - Family History Significant Family History: No pertinent family hx - Social History Smoking Status: Former smoker Alcohol Use: Sober Drug Use: None Constitutional: Initial Vital Signs Temperature (C) 36.9 C 06/03/17 12:13 Heart Rate 87 06/03/17 12:13 Respiratory Rate 18 06/03/17 12:13 Blood Pressure 126/63 H 06/03/17 12:13 O2 Sat (%) 99 06/03/17 12:13 O2 Delivery Mode Room Air Allergies/Adverse Reactions: No Known Allergies Allergy (Verified 10/15/16 14:51) Home Medications: Medication Instructions Recorded Furosemide [Lasix 80 MG (*)] 160 mg PO DAILY 12/16/15 Insulin Glargine [Lantus 100 70 units SC BID 10/04/16 UNITS/ML (*)] Spironolactone [Aldactone] 100 mg PO DAILY 10/04/16 Insulin Lispro [humALOG LISPRO 100 0 unit SC TIDMEAL 10/18/16 units/ml (*)] Lactulose 20 gm PO Q4H #100 ml 10/23/16 Medical Decision Making - Diagnostics EKG Interpretation: An EKG obtained and was read and documented in trace view. Please see trace view for full reading and report. Sinus rhythm, right bundle branch block, similar to previous ED Course/Re-evaluation: 2:50 p.m. I discussed the case with Dr. Carnes who agrees to admit to the medical service. Was able to get a little bit of pus out of the patient's right arm. I have sent it for cultures. Differential Diagnosis: Partial list of the Differential diagnosis considered include but were not limited to; cellulitis, renal disease, CHF, cirrhosis, sepsis and although unlikely based on the history and physical exam, I also considered thrombosis, dissection. Critical Care Time: Critical care time spent by me, Dr. Garcia exclusive with this patient was 35 minutes, exclusive of the PA time exclusive of procedures. The organ system that was at risk was cardiovascular and I gave IV fluids, antibiotics, consultation and admission to prevent worsening of the patient's condition - Data Points Laboratory Results: Laboratory Results 06/03/17 13:35 06/03/17 13:35 06/03/17 06/03/17 06/03/17 13:35 13:35 13:35 WBC 3.55 10^3/uL L 10^3/uL (3.80-9.50) RBC 2.51 10^6/uL L 10^6/uL (4.40-6.38) Hgb 8.4 g/dL L g/dL (13.7-17.5) Hct 25.3 % L % (40.0-51.0) MCV 100.8 fL H fL (81.5-99.8) MCH 33.5 pg pg (27.9-34.1) MCHC 33.2 g/dL g/dL (32.4-36.7) RDW 16.5 % H % (11.5-15.2) Plt Count 66 10^3/uL L 10^3/uL (150-400) MPV 10.3 fL fL (8.7-11.7) Neut % (Auto) 49.0 % % (39.3-74.2) Lymph % (Auto) 15.2 % % (15.0-45.0) [place] % (Auto) 16.9 % H % (4.5-13.0) Eos % (Auto) 17.7 % H % (0.6-7.6) Baso % (Auto) 0.6 % % (0.3-1.7) Nucleat RBC Rel Count 0.0 % % (0.0-0.2) Absolute Neuts (auto) 1.74 10^3/uL 10^3/uL (1.70-6.50) Absolute Lymphs (auto) 0.54 10^3/uL L 10^3/uL (1.00-3.00) Absolute Monos (auto) 0.60 10^3/uL 10^3/uL (0.30-0.80) Absolute Eos (auto) 0.63 10^3/uL H 10^3/uL (0.03-0.40) Absolute Basos (auto) 0.02 10^3/uL 10^3/uL (0.02-0.10) Absolute Nucleated RBC 0.00 10^3/uL 10^3/uL (0-0.01) Immature Gran % 0.6 % % (0.0-1.1) Immature Gran # 0.02 10^3/uL 10^3/uL (0.00-0.10) PT 20.0 SEC H SEC (12.0-15.0) INR 1.70 H (0.83-1.16) APTT 31.6 SEC SEC (23.0-38.0) VBG Lactic Acid 2.2 mmol/L H mmol/L (0.7-2.1) Sodium Potassium Chloride Carbon Dioxide Anion Gap BUN Creatinine Estimated GFR Glucose Calcium Total Bilirubin Conjugated Bilirubin Unconjugated Bilirubin AST ALT Alkaline Phosphatase Troponin I NT-Pro-B Natriuret Pep Total Protein Albumin 06/03/17 13:35 WBC RBC Hgb Hct MCV MCH MCHC RDW Plt Count MPV Neut % (Auto) Lymph % (Auto) [place] % (Auto) Eos % (Auto) Baso % (Auto) Nucleat RBC Rel Count Absolute Neuts (auto) Absolute Lymphs (auto) Absolute Monos (auto) Absolute Eos (auto) Absolute Basos (auto) Absolute Nucleated RBC Immature Gran % Immature Gran # PT INR APTT VBG Lactic Acid Sodium 141 mEq/L mEq/L (134-144) Potassium 3.5 mEq/L mEq/L (3.5-5.2) Chloride 112 mEq/L H mEq/L (97-110) Carbon Dioxide 19 mEq/l L mEq/l (22-31) Anion Gap 10 mEq/L mEq/L (8-16) BUN 20 mg/dL mg/dL (7-23) Creatinine 1.2 mg/dL mg/dL (0.7-1.3) Estimated GFR > 60 Glucose 140 mg/dL H mg/dL (70-100) Calcium 7.3 mg/dL L mg/dL (8.5-10.4) Total Bilirubin 2.7 mg/dL H mg/dL (0.1-1.4) Conjugated Bilirubin 0.5 mg/dL mg/dL (0.0-0.5) Unconjugated Bilirubin 2.2 mg/dL H mg/dL (0.0-1.1) AST 27 IU/L IU/L (17-59) ALT 30 IU/L IU/L (21-72) Alkaline Phosphatase 87 IU/L IU/L (38-126) Troponin I < 0.012 ng/mL ng/mL (0.000-0.034) NT-Pro-B Natriuret Pep 503 pg/mL H pg/mL (0-125) Total Protein 5.6 g/dL L g/dL (6.3-8.2) Albumin 2.4 g/dL L g/dL (3.5-5.0) Medications Given: Discontinued Medications Sodium Chloride (Ns) 1,000 mls @ 0 mls/hr IV EDNOW ONE; Wide Open PRN Reason: Protocol Stop: 06/03/17 14:02 Last Admin: 06/03/17 14:57 Dose: Not Given Sodium Chloride (Ns) 2,700 mls @ 5,400 mls/hr 30 ml/kg infuse over 30 min ( 2700 ml) IV EDNOW ONE PRN Reason: Protocol Stop: 06/03/17 14:30 Last Admin: 06/03/17 14:18 Dose: 2,700 mls Ceftriaxone Sodium/Dextrose (Rocephin 1 Gm (Premix)) 50 mls @ 100 mls/hr IV EDNOW ONE PRN Reason: Protocol Stop: 06/03/17 14:44 Last Admin: 06/03/17 14:36 Dose: 50 mls Departure - Departure Disposition: [facility] Inpatient Acute Clinical Impression: Cellulitis Qualifiers: Site of cellulitis: extremity Site of cellulitis of extremity: upper extremity Laterality: right Qualified Code(s): L03.113 - Cellulitis of right upper limb Edema Qualifiers: Edema type: unspecified Qualified Code(s): R60.9 - Edema, unspecified Sepsis Qualifiers: Sepsis type: sepsis due to unspecified organism Qualified Code(s): A41.9 - Sepsis, unspecified organism Condition: Fair
[2017-06-03 13:54] LABS: % IMMATURE GRANULYOCYTES 0.6 % (0.0-1.1); ABSOLUTE IMMATURE GRANULOCYTES 0.02 10^3/uL (0.00-0.10); ADD DIFF? NO; ADD MORPH? NO; ADD SCAN? NO; ATYPICAL LYMPHOCYTE FLAG 20 (0-99); FRAGMENT RBC FLAG 0 (0-99); HEMATOCRIT 25.3 % (40.0-51.0); HEMOGLOBIN 8.4 g/dL (13.7-17.5); LEFT SHIFT FLG 0 (0-99); LIPEMIA HEMOLYSIS FLAG 80 (0-99); MEAN CELL HEMOGLOBIN 33.5 pg (27.9-34.1); MEAN CELL HEMOGLOBIN CONCENTR. 33.2 g/dL (32.4-36.7); MEAN CELL VOLUME 100.8 fL (81.5-99.8); MEAN PLATELET VOLUME 10.3 fL (8.7-11.7); PLATELET CLUMPS FLAG 0 (0-99); PLATELET COUNT 66 10^3/uL (150-400); RED BLOOD CELL COUNT 2.51 10^6/uL (4.40-6.38); RED CELL DISTRIBUTION WIDTH 16.5 % (11.5-15.2)
--- NOTE | 2017-06-03 13:58 | CPEKG ---
Heart Rate: 87 RR Interval: 690 P-R Interval: 192 QRSD Interval: 124 QT Interval: 416 QTC Interval: 501 P [place]: 0 QRS [place]: -69 T Wave [place]: 95 EKG Severity - ABNORMAL ECG - EKG Impression: SINUS RHYTHM EKG Impression: RIGHT BUNDLE BRANCH BLOCK EKG Impression: LVH WITH IVCD AND SECONDARY REPOL ABNRM EKG Impression: PROBABLE INFERIOR INFARCT, OLD Electronically Signed By: Jose Luis Garcia 03-Jun-2017 14:03:40
[2017-06-03] MEDS ORDERED: NS 1,000 ML IV ONE (14:01)
[2017-06-03] MEDS ORDERED: NS 2,700 ML IV ONE (14:01)
[2017-06-03 14:04] LABS: APTT 31.6 SEC (23.0-38.0); INR 1.7 (0.83-1.16)
[2017-06-03 14:10] LABS: ALANINE AMINOTRANSFERASE 30 IU/L (21-72); ALBUMIN 2.4 g/dL (3.5-5.0); ALKALINE PHOSPHATASE 87 IU/L (38-126); ANION GAP 10 mEq/L (8-16); ASPARTATE AMINOTRANSFERASE 27 IU/L (17-59); BILIRUBIN,TOTAL 2.7 mg/dL (0.1-1.4); BILIRUBIN-CONJUGATED 0.5 mg/dL (0.0-0.5); BILIRUBIN-UNCONJUGATED 2.2 mg/dL (0.0-1.1); CALCIUM 7.3 mg/dL (8.5-10.4); CARBON DIOXIDE 19 mEq/l (22-31); CHLORIDE 112 mEq/L (97-110); CREATININE 1.2 mg/dL (0.7-1.3); GLOMERULAR FILTRATION RATE > 60; GLUCOSE 140 mg/dL (70-100); POTASSIUM 3.5 mEq/L (3.5-5.2); SODIUM 141 mEq/L (134-144); TOTAL PROTEIN 5.6 g/dL (6.3-8.2)
[2017-06-03 14:22] LABS: TROPONIN I < 0.012 ng/mL (0.000-0.034)
[2017-06-03 14:49] LABS: LACGHOST ORDER
[2017-06-03] MEDS ORDERED: D50W 25 GM/50 ML SYR IVP PRN (16:51)
[2017-06-03] MEDS ORDERED: ONDANSETRON DISINTEGRATING 4 MG TAB PO PRN (16:52)
[2017-06-03] MEDS ORDERED: ONDANSETRON 4 MG/2 ML VIAL IVP PRN (16:52)
[2017-06-03] MEDS: VANCOMYCIN HCL/NORMAL SALINE 250 ML IV SCH (17:34)
[2017-06-03] MEDS: INSULIN LISPRO 100 UNIT/ML SC SCH (17:34)
--- NOTE | 2017-06-03 18:00 | GHP ---
[f rep st] HISTORY AND PHYSICAL DATE OF ADMISSION: 06/03/2017 HISTORY OF PRESENT ILLNESS: The patient is a complex 61-year-old gentle with a history of cryptogeni c cirrhosis with recent TIPS, as well as diabetes, coronary artery disease and traumatic brain injury who presents with right upper extremity swelling. It has been going on for a couple of days. He bu mped it 2-1/2 days ago with a small laceration, not requiring sutures. He did not seek care. Since then, it has gotten more red and swollen. He has had subjective fever and chills. He has not had lightheadedness or dizziness. He has continued to take his medicines. No chest pain. He does note his edema has gotten worse than it has been in the past. He has not required a parace ntesis since his TIPS. REVIEW OF SYSTEMS: Complete 10-point review of systems conducted, negative except as noted in the HP I. PAST MEDICAL HISTORY: 1. Cryptogenic cirrhosis, status post banding of varices remotely and now TIPS in September of this year . 2. History of hepatic encephalopathy. 3. Coronary artery disease with stents. 4. Depression. 5. Diabetes. 6. Hyperlipidemia. 7. Pacemaker. 8. Multiple paracenteses. 9. Obesity. 10. Traumatic brain injury x2. Apparently, he has a plate in his skull. SOCIAL HISTORY: Former smoker. No alcohol. Lives with his who is present at the bedside. FAMILY HISTORY: Reviewed and unremarkable. ALLERGIES: No known drug allergies. MEDICATIONS: Lantus 75 b.i.d., lactulose, lispro insulin subcu t.i.d. meals, Lasix 160 daily, spiron olactone 100 daily. PHYSICAL EXAMINATION: VITAL SIGNS: Temp 36.8, blood pressure 110/59, pulse 82, breathing 12 times a minute, 96% on room air. GENERAL: Chronically ill appearing, no acute distress. HEENT: Sclerae a nicteric. Oropharynx clear. Mucous membranes moist. NECK: Supple without lymphadenopathy or JVD. LUNGS: Clear to auscultation bilaterally. HEART: S1, S2 without murmurs. ABDOMEN: Soft, obese. There is probably some ascites there. EXTREMITIES: Lower extremities show 3+ edema bilaterally. C chapman are nontender. His right upper extremity has a cellulitis that is erythematous with some pustu les and a small area of fluctuance that is about 1 cm in [place]. NEUROLOGIC: Nonfocal. He has field consultant isauro venous stasis changes to the lower extremities. LABORATORY DATA: Gram stain of the wound shows 2+ gram-positive cocci, as well as 1+ polymorphonucle ocytes. Blood cultures are pending. White count is 3.55, hematocrit is 25.3, which is below his bas ángela, but not a ton. Platelets are low at 66. INR is 1.7. Venous lactate is 2.2. Sodium 141, pot assium 3.5, chloride 112, bicarb 19, BUN 20. Creatinine 1.2; his baseline is less than 1. Glucose 1 40. Bilirubin is 2.7, mostly unconjugated. BNP is 503. His transaminases are normal. I discussed the case with Dr. Jose Luis Garcia of the Emergency Department. EKG, interpreted by me, shows sinus at 87 with right bundle branch block pattern. No ST or T-wave ch anges. Compared with prior, right bundle branch block pattern is not new. ASSESSMENT/PLAN: 1. A 61-year-old gentleman, complex medical history, presents with right upper extremity cellulitis. He has erythema and a pustular area. He received ceftriaxone in the Emergency Department. I think the patient is at risk for methicillin-resistant Staphylococcus aureus. Certainly, the pustular jairo earance makes it more consistent with that. I will start him on vancomycin. Given the fluctuant are a, I performed an ultrasound of these and incision and drainage. 2. Sepsis. I do not believe the patient has sepsis. He has cirrhosis, and on that basis he is terrence g to have poor clearance of lactate. We will repeat it now. 3. Acute kidney injury. I suspect this is over diuresis and intravascular volume depletion. He rec eived some IV fluids. We will follow daily. 4. Ascites. We will follow him clinically. This is not the time for fluid removal in this patient given his infection. 5. Diabetes. We will continue his Lantus, and give lispro sliding scale at the regular dose. I kirsty pect he may need to escalate this. It sounds like in the past he has had a very severe hypoglycemic episode in the hospital resulting in seizure, possible stroke and intubation. 6. Prophylaxis: His international normalized ratio is 1.7. His platelets were low, so we will hold off on low-molecular heparin. 7. Disposition: Inpatient status. 8. Pain, p.r.n. oxycodone. I will hold off on Tylenol. /[id number]/MODL
[2017-06-03] MEDS: oxyCODONE IR 5 MG TAB PO PRN ×2 (18:18→23:00)
--- NOTE | 2017-06-03 18:25 | PDMN ---
Medical Necessity Medical necessity: C/M review: Patient meets INPT criteria under [facility] [place] C-70 Cellulitis; Acute and persistently worsening right upper extremity cellulitis with erythema, swelling and a pustular area, sepsis, acute kidney injury, ascites, transaminitis, WBC 3.55, INR 1.7, VBG lactic acid 2.2, Ca 7.3, total bilirubin 2.7, BNP 503 requiring US and incision and drainage of the fluctuant area, planned Wound Care consult ongoing IV Vancomycin Q 12 hrs., acute inpt PT , comorbid cryptogenic cirrhosis S/P remote banding of varices and 09/2016 TIPS procedure, CAD S/P stents, depression, diabetes, hyperlipidemia, a obesity, ( BMI 37.5 kg/m2), history of a pacemaker, traumatic brain injury x 2 with a plate in the skull. anticipates > 2 MN LOS for ongoing med nec for eval and TX of above. Patient is Medicare Advantage which follows guidelines CMS puts forth.
[2017-06-03 20:06] LABS: COLOR YELLOW; LEUKOCYTE ESTERASE,URINE NEGATIVE (NEGATIVE); NITRITE,URINE NEGATIVE (NEGATIVE); RBC,URINE 15-25 /hpf (0-3)
[2017-06-03] MEDS ORDERED: LIDO/EPI 1% **for epidural** 30 ML SDV NB ONE ×2 (22:00)
--- NOTE | 2017-06-03 22:40 | GCON ---
[f rep st] CONSULTATION Asked to see the patient by Dr. Carnes in regard to right lateral elbow abscess. The patient has cellulitis over a 7 or 8 cm area as well as a mildly fluctuant 1 cm area. An ultraso und early also showed a very small area of possible fluid. PROCEDURE: The area was scrubbed with ChloraPrep. 1% lidocaine with epinephrine was infused over th e most fluctuant area. Then an incision made. Only a few drops of purulence were obtained. A Q-tip placed in here was used to obtain a culture for Gram stain and sensitivities. The area was irrigate d out with spray saline after which a small amount of 4 x 4 gauze was packed into the wound and then a bulky gauze dressing placed and wrapped in an Tino wrap. Despite the fact the patient has an extend ed INR and low platelets from his cirrhosis, there was no bleeding. /[id number]/MODL
[2017-06-03] MEDS: BENZONATATE 100 MG CAP PO PRN (22:59)
[2017-06-03] MEDS: guaiFENesin/CODEINE PHOS 10 ML UDCUP PO PRN (22:59)
[2017-06-03] MEDS: INSULIN GLARGINE 100 UNITS/ML SYRINGE SC SCH (22:59)
[2017-06-03] MEDS: LACTULOSE 20 GM/30 ML UDCUP PO SCH (23:01)
[2017-06-04] MEDS: VANCOMYCIN HCL/NORMAL SALINE 250 ML IV SCH ×2 (06:10→17:48)
[2017-06-04] MEDS: BENZONATATE 100 MG CAP PO PRN ×2 (06:36→17:48)
[2017-06-04] MEDS: oxyCODONE IR 5 MG TAB PO PRN ×2 (06:37→15:33)
[2017-06-04] MEDS ORDERED: SODIUM CL NASAL 45 ML BTL EACHNARE PRN (07:30)
[2017-06-04] MEDS ORDERED: diphenhydrAMINE 25 MG CAP PO PRN (07:31)
[2017-06-04] MEDS: INSULIN LISPRO 100 UNIT/ML SC SCH ×3 (07:54→18:38)
[2017-06-04 08:03] LABS: ADD DIFF? YES; ADD MORPH? NO; ADD SCAN? NO; ATYPICAL LYMPHOCYTE FLAG 50 (0-99); FRAGMENT RBC FLAG 0 (0-99); HEMATOCRIT 24.9 % (40.0-51.0); HEMOGLOBIN 8.1 g/dL (13.7-17.5); LEFT SHIFT FLG 0 (0-99); LIPEMIA HEMOLYSIS FLAG 80 (0-99); MEAN CELL HEMOGLOBIN 33.1 pg (27.9-34.1); MEAN CELL HEMOGLOBIN CONCENTR. 32.5 g/dL (32.4-36.7); MEAN CELL VOLUME 101.6 fL (81.5-99.8); MEAN PLATELET VOLUME 9.5 fL (8.7-11.7); PLATELET CLUMPS FLAG 0 (0-99); PLATELET COUNT 54 10^3/uL (150-400); RED BLOOD CELL COUNT 2.45 10^6/uL (4.40-6.38); RED CELL DISTRIBUTION WIDTH 16.7 % (11.5-15.2)
[2017-06-04 08:13] LABS: INR 1.84 (0.83-1.16); PROTIME(PATIENT) 21.3 SEC (12.0-15.0)
[2017-06-04 08:23] LABS: ALANINE AMINOTRANSFERASE 30 IU/L (21-72); ALBUMIN 2.6 g/dL (3.5-5.0); ALKALINE PHOSPHATASE 102 IU/L (38-126); ANION GAP 8 mEq/L (8-16); ASPARTATE AMINOTRANSFERASE 29 IU/L (17-59); BILIRUBIN,TOTAL 3.4 mg/dL (0.1-1.4); CALCIUM 7.8 mg/dL (8.5-10.4); CARBON DIOXIDE 19 mEq/l (22-31); CHLORIDE 111 mEq/L (97-110); GLOMERULAR FILTRATION RATE > 60; GLUCOSE 259 mg/dL (70-100); POTASSIUM 4.4 mEq/L (3.5-5.2); SODIUM 138 mEq/L (134-144)
[2017-06-04 08:31] LABS: BILIRUBIN-CONJUGATED 0.8 mg/dL (0.0-0.5); BILIRUBIN-UNCONJUGATED 2.6 mg/dL (0.0-1.1)
[2017-06-04] MEDS ORDERED: ENOXAPARIN 40 MG/0.4 ML SYR SC SCH (09:00)
[2017-06-04 09:07] LABS: MACROCYTES 1+; PLATELET ESTIMATE DECREASED (ADEQ); POLYCHROMASIA 1+
[2017-06-04] MEDS: INSULIN GLARGINE 100 UNITS/ML SYRINGE SC SCH ×2 (09:21→20:50)
[2017-06-04] MEDS: LACTULOSE 20 GM/30 ML UDCUP PO SCH (09:21)
[2017-06-04] MEDS ORDERED: FUROSEMIDE 80 MG TAB PO SCH (11:00)
[2017-06-04] MEDS ORDERED: LACTULOSE 30 GM PO SCH (11:00)
--- NOTE | 2017-06-04 11:18 | ASMTCMCOM ---
CM Note CM Note Notes: Pt admitted for arm cellulitis, infectious disease consult pending. He has been cleared by PT. Anticipate will dc home with support of his when medically stable. DC Plan: Home indepedent unless need IV abx Date Signed: 06/04/2017 11:18 AM Electronically Signed By:Chloé Villarreal RN
[2017-06-04] MEDS: SPIRONOLACTONE 50 MG TAB PO SCH (12:28)
[2017-06-04] MEDS: HYDROCORTISONE 1% CREAM TP PRN ×2 (12:39→23:23)
[2017-06-04] MEDS ORDERED: FUROSEMIDE 40 MG/4 ML VIAL IVP SCH (14:00)
[2017-06-04] MEDS: ALBUMIN 25% 100 ML IV SCH ×2 (15:11→22:31)
--- NOTE | 2017-06-04 15:27 | HOSPPROG ---
Hospitalist Progress Note Assessment/Plan: * RUE pustular cellulitis s/p I&D -IV Vanco * Cryptogenic cirrhosis (suspect RICO) * Volume overload -IV lasix + IV albumin -continue spironolactone -check abd US eval possible ascites, eval TIPS * h/o varices * DM II -takes U-500 at home -administer lantus here and monitor closely * CAD/stent * PCM * Obesity BMI 37 * Pancytopenia - due to cirrhosis Subjective: No new complaints, c/o severe swelling Objective: Vital Signs Temp Pulse Resp BP Pulse Ox 36.5 C 73 22 H 124/60 H 93 06/04/17 14:56 06/04/17 14:56 06/04/17 14:56 06/04/17 14:56 06/04/17 14:56 Microbiology 06/03/17 23:34 Gram Stain - Final Arm - Swab Laboratory Results 06/04/17 07:55 06/04/17 07:55 06/03/17 06/04/17 06/05/17 05:59 05:59 05:59 Intake Total 3850 Output Total 150 200 Balance 3700 -200 PT 21.3 SEC (12.0-15.0) H 06/04/17 07:55 INR 1.84 (0.83-1.16) H 06/04/17 07:55 EKG viewed, my personal interpretation is - RBBB - Physical Exam Constitutional: no apparent distress, appears nourished, not in pain Cardiovascular: regular rate and rhythym, no murmur, rub, or gallop, edema (4+) Respiratory: no respiratory distress, no rales or rhonchi, clear to auscultation Gastrointestinal: normoactive bowel sounds, soft, non-tender abdomen, no palpable masses Skin: no rashes or abrasions, no fluctuance, no induration Neurologic: AAOx3, sensation intact bilaterally Psychiatric: interacting appropriately, not anxious, not encephalopathic, thought process linear ICD10 Worksheet Patient Problems: Problems Problem Status Onset Cellulitis Acute Edema Acute Sepsis Acute Altered mental status Acute Anemia Acute Ascites Acute Cirrhosis Acute Hyperammonemia Acute Jaundice Acute Liver failure Acute Nausea & vomiting Acute Thrombocytopenia Acute
[2017-06-04] MEDS: FUROSEMIDE 40 MG/4 ML VIAL IVP SCH (16:23)
[2017-06-04] MEDS ORDERED: [UNRECOGNIZED DRUG - OTHER] SQ SCH (18:00)
[2017-06-04] MEDS: guaiFENesin/CODEINE PHOS 10 ML UDCUP PO PRN (23:20)
[2017-06-05] MEDS: FUROSEMIDE 40 MG/4 ML VIAL IVP SCH ×4 (00:27→22:11)
[2017-06-05] MEDS: VANCOMYCIN HCL/NORMAL SALINE 250 ML IV SCH (04:57)
[2017-06-05 05:31] LABS: ALANINE AMINOTRANSFERASE 27 IU/L (21-72); ALBUMIN 2.9 g/dL (3.5-5.0); ALKALINE PHOSPHATASE 93 IU/L (38-126); ANION GAP 12 mEq/L (8-16); ASPARTATE AMINOTRANSFERASE 25 IU/L (17-59); BILIRUBIN,TOTAL 3.5 mg/dL (0.1-1.4); BILIRUBIN-CONJUGATED 0.9 mg/dL (0.0-0.5); BILIRUBIN-UNCONJUGATED 2.6 mg/dL (0.0-1.1); CALCIUM 8.4 mg/dL (8.5-10.4); CARBON DIOXIDE 17 mEq/l (22-31); CHLORIDE 109 mEq/L (97-110); CREATININE 1.1 mg/dL (0.7-1.3); GLOMERULAR FILTRATION RATE > 60; GLUCOSE 178 mg/dL (70-100); POTASSIUM 4.2 mEq/L (3.5-5.2); SODIUM 138 mEq/L (134-144); TOTAL PROTEIN 6.2 g/dL (6.3-8.2)
[2017-06-05] MEDS: ALBUMIN 25% 100 ML IV SCH ×3 (06:54→21:47)
[2017-06-05] MEDS: INSULIN LISPRO 100 UNIT/ML SC SCH ×3 (08:28→18:35)
[2017-06-05] MEDS: LACTULOSE 20 GM/30 ML UDCUP PO SCH (08:29)
[2017-06-05] MEDS: SPIRONOLACTONE 50 MG TAB PO SCH (08:29)
[2017-06-05] MEDS ORDERED: [UNRECOGNIZED DRUG - OTHER] SQ SCH (09:00)
[2017-06-05] MEDS ORDERED: ALTEPLASE 2 MG VIAL IVP PRN (09:54)
--- NOTE | 2017-06-05 11:11 | WOCRNPDOC ---
WOCRN Advanced Assessment Note - Skin Integrity Problem, Advanced Assess Right Elbow Surgical Wound/Incision Dressing Type: Open to Air (patient had just showered) Exudate Amount: Scant Exudate Color: Yellow, Reddish/Yellow Exudate Characteristic(s): Sanguinopurulent Integumentary Issue Intervention: Dressing Applied, Dressing Initialed & Dated, Silver Gel Applied Lolis Wound Tissue: Erythema, Swollen Lolis Wound Swelling: Mild Wound Bed Color: Red Wound Bed Constitution: Red/Raymer - Non Granular Tissue Site Odor: None Site Measurement - Head-to-Toe Length X Width X Depth (cm): 0.9cmx0.2cmx0.5cm Skin Integrity Problem Comment: Discrete, linear incision noted on R elbow r/t I &D. Scant purulence emanating from wound, no appreciable fluctuance in periwound tissues. Mild erythema and swelling noted periwound as well, w/ some superficial skin sloughing off consistent w/ previous swelling. Wound bed is relatively shallow, no tunneling evident. Wound flushed w/ NS, and packed w/ small amount of 1/4 inch packing moistened w/ Silvasorb gel. Covered w/ Allevyn. Do not anticipate the wound will need to be packed for very long, as depth is 0.5cm and wound is discrete. graining press operator Kelli present and assisting. Bilateral Lower Leg Dressing Type: Open to Air Integumentary Issue Intervention: Lotion/Cream Applied (skin repair cream) Lolis Wound Tissue: Hemosiderin Staining, Venous Dermatitis Extremity Temperature: Warm Peripheral Edema Location & Description: +4, pitting bilateral feet; +3, pitting anterior LLE. Skin Integrity Problem Comment: Pitting edema noted to bilateral LE, +4 on the dorsum of the feet. L leg is significantly more edematous than R, circumference at calf measuring 45cm and 38cm respectively. Skin changes associated w/ venous insufficiency observed, including hemosiderin staining and venous dermatitis. No wounds or weeping noted. Plan for skin repair cream BID to mitigate itching and dryness, w/ moderate compression using Spandagrip stockings size F. Wound RN will follow up with patient on Sunday 06/10.
[2017-06-05] MEDS ORDERED: INSULIN GLARGINE 100 UNITS/ML SYRINGE SC ONE (11:30)
[2017-06-05] MEDS: INSULIN GLARGINE 100 UNITS/ML SYRINGE SC SCH ×2 (11:30→20:55)
[2017-06-05] MEDS: BENZONATATE 100 MG CAP PO PRN (14:51)
--- NOTE | 2017-06-05 15:49 | ASMTCMCOM ---
CM Note CM Note Notes: RN concerned about patient's needs at home, thought he could use some HC. OT Not recommending HC OT; no recommendations from PT. Patient may need HC RN? He is presently on IV ABX. CM to follow for discharge needs. Date Signed: 06/05/2017 03:48 PM Electronically Signed By:Nida Hammond LCSW
--- NOTE | 2017-06-05 15:53 | HOSPPROG ---
Hospitalist Progress Note Assessment/Plan: * RUE pustular cellulitis s/p I&D - MSSA -IV ancef * Cryptogenic cirrhosis (suspect RICO) * Volume overload - massive 4+ -IV lasix + IV albumin -continue spironolactone -no ascites, TIPS patent on US * h/o varices * DM II -takes U-500 at home -administer lantus here and monitor closely * CAD/stent * PCM * Obesity BMI 37 * Pancytopenia - due to cirrhosis Subjective: Doesn't feel like edema any better yet Objective: Vital Signs Temp Pulse Resp BP Pulse Ox 36.7 C 76 18 110/42 L 96 06/05/17 12:00 06/05/17 12:00 06/05/17 12:00 06/05/17 12:00 06/05/17 12:00 Microbiology 06/03/17 23:34 Gram Stain - Final Arm - Swab Wound Culture - Final Staphylococcus Aureus 06/05/17 11:00 Respiratory Panel (PCR) - Final Nasal, Sinus - Swab No Organism Detected Laboratory Results 06/04/17 07:55 06/05/17 03:57 06/04/17 06/05/17 06/06/17 05:59 05:59 05:59 Intake Total 3850 2100 Output Total 150 1150 1000 Balance 3700 950 -1000 PT 21.3 SEC (12.0-15.0) H 06/04/17 07:55 INR 1.84 (0.83-1.16) H 06/04/17 07:55 - Physical Exam Constitutional: no apparent distress, appears nourished, not in pain Cardiovascular: regular rate and rhythym, no murmur, rub, or gallop Respiratory: no respiratory distress, no rales or rhonchi, clear to auscultation Gastrointestinal: normoactive bowel sounds, soft, non-tender abdomen, no palpable masses Skin: warm, erythema, induration, fluctuance, other (erthythema around I&D wound - serosangiunous drainage extensive due to arm edema), No normal color Neurologic: AAOx3, sensation intact bilaterally Psychiatric: interacting appropriately, not anxious, not encephalopathic, thought process linear ICD10 Worksheet Patient Problems: Problems Problem Status Onset Cellulitis Acute Edema Acute Sepsis Acute Altered mental status Acute Anemia Acute Ascites Acute Cirrhosis Acute Hyperammonemia Acute Jaundice Acute Liver failure Acute Nausea & vomiting Acute Thrombocytopenia Acute
--- NOTE | 2017-06-05 19:06 | SOAPPROG ---
SOAP Progress Note Assessment/Plan: Assessment: Plan: Subjective: POST I AND D LESS SWELLING, DRESSING INTACT. NO FURTHER SURGERY INDICATED. MSSA ON MICRO Objective: Vital Signs Temp Pulse Resp BP Pulse Ox 36.6 C 75 18 115/57 L 98 06/05/17 16:00 06/05/17 16:00 06/05/17 16:00 06/05/17 16:00 06/05/17 16:00 Microbiology 06/03/17 23:34 Gram Stain - Final Arm - Swab Wound Culture - Final Staphylococcus Aureus 06/05/17 11:00 Respiratory Panel (PCR) - Final Nasal, Sinus - Swab No Organism Detected Laboratory Results 06/04/17 07:55 06/05/17 03:57 06/04/17 06/05/17 06/06/17 05:59 05:59 05:59 Intake Total 3850 2100 2400 Output Total 150 1150 3300 Balance 3700 950 -900 PT 21.3 SEC (12.0-15.0) H 06/04/17 07:55 INR 1.84 (0.83-1.16) H 06/04/17 07:55 ICD10 Worksheet Patient Problems: Problems Problem Status Onset Cellulitis Acute Edema Acute Sepsis Acute Altered mental status Acute Anemia Acute Ascites Acute Cirrhosis Acute Hyperammonemia Acute Jaundice Acute Liver failure Acute Nausea & vomiting Acute Thrombocytopenia Acute
[2017-06-05] MEDS: oxyCODONE IR 5 MG TAB PO PRN (20:55)
[2017-06-05] MEDS: guaiFENesin/CODEINE PHOS 10 ML UDCUP PO PRN (20:56)
[2017-06-06 02:29] LABS: HEMOGLOBIN A1C 6.2 % (4.0-6.0)
[2017-06-06] MEDS: ALBUMIN 25% 100 ML IV SCH ×3 (05:29→21:20)
[2017-06-06 05:58] LABS: ALANINE AMINOTRANSFERASE 30 IU/L (21-72); ALKALINE PHOSPHATASE 84 IU/L (38-126); ASPARTATE AMINOTRANSFERASE 23 IU/L (17-59); BILIRUBIN,TOTAL 3.1 mg/dL (0.1-1.4); BILIRUBIN-UNCONJUGATED 2.1 mg/dL (0.0-1.1); CALCIUM 9.1 mg/dL (8.5-10.4); CARBON DIOXIDE 22 mEq/l (22-31); CREATININE 1.2 mg/dL (0.7-1.3); GLOMERULAR FILTRATION RATE > 60
[2017-06-06] MEDS: FUROSEMIDE 40 MG/4 ML VIAL IVP SCH ×3 (06:26→22:37)
[2017-06-06 06:27] LABS: ALBUMIN 3.3 g/dL (3.5-5.0); ANION GAP 12 mEq/L (8-16); CHLORIDE 109 mEq/L (97-110); GLUCOSE 116 mg/dL (70-100); POTASSIUM 3.9 mEq/L (3.5-5.2); SODIUM 143 mEq/L (134-144); TOTAL PROTEIN 6.9 g/dL (6.3-8.2)
[2017-06-06] MEDS: INSULIN LISPRO 100 UNIT/ML SC SCH ×3 (08:35→17:02)
[2017-06-06] MEDS: SPIRONOLACTONE 50 MG TAB PO SCH (10:01)
[2017-06-06] MEDS: LACTULOSE 20 GM/30 ML UDCUP PO SCH (10:01)
[2017-06-06] MEDS: INSULIN GLARGINE 100 UNITS/ML SYRINGE SC SCH ×2 (10:05→21:19)
--- NOTE | 2017-06-06 13:11 | HOSPPROG ---
Hospitalist Progress Note Assessment/Plan: 61 yo M w dm 2, cryptogenic cirrhosis a/w RUE cellulitis and small abscess RUE pustular cellulitis s/p I&D - MSSA -IV ancef improved from admit Cryptogenic cirrhosis (suspect RICO) Volume overload - massive 4+ -IV lasix + IV albumin -continue spironolactone -no ascites, TIPS patent on US co ntinue aggressive diuresis h/o varices DM II -takes U-500 at home -administer lantus here and monitor closely increase lantus to 70 bid CAD/stent PCM Obesity BMI 37 Pancytopenia - due to cirrhosis proph: scd's no heparin given low platelets and coagulopathy Subjective: notes sig edema. no events tele (interp by me) Objective: Vital Signs Temp Pulse Resp BP Pulse Ox 36.9 C 77 18 112/53 L 93 06/06/17 11:30 06/06/17 11:30 06/06/17 11:30 06/06/17 11:30 06/06/17 11:30 Microbiology 06/03/17 23:34 Gram Stain - Final Arm - Swab Wound Culture - Final Staphylococcus Aureus 06/05/17 11:00 Respiratory Panel (PCR) - Final Nasal, Sinus - Swab No Organism Detected Laboratory Results 06/04/17 07:55 06/06/17 05:30 06/05/17 06/06/17 06/07/17 05:59 05:59 05:59 Intake Total 2100 2885 937 Output Total 1150 3650 400 Balance 950 -765 537 PT 21.3 SEC (12.0-15.0) H 06/04/17 07:55 INR 1.84 (0.83-1.16) H 06/04/17 07:55 - Physical Exam Constitutional: no apparent distress, appears nourished Eyes: PERRL, anicteric sclera Ears, Nose, Mouth, Throat: moist mucous membranes, hearing normal Cardiovascular: regular rate and rhythym, no murmur, rub, or gallop, edema Respiratory: no respiratory distress, no rales or rhonchi Gastrointestinal: normoactive bowel sounds, ascites, No guarding, No rebound Genitourinary: no bladder fullness Skin: warm, normal color Musculoskeletal: full muscle strength, other (RUE cellulitis and small abscess improved. packing in place. no purulence) Neurologic: AAOx3, sensation intact bilaterally Psychiatric: interacting appropriately ICD10 Worksheet Patient Problems: Problems Problem Status Onset Cellulitis Acute Edema Acute Sepsis Acute Altered mental status Acute Anemia Acute Ascites Acute Cirrhosis Acute Hyperammonemia Acute Jaundice Acute Liver failure Acute Nausea & vomiting Acute Thrombocytopenia Acute
--- NOTE | 2017-06-06 14:32 | ASMTCMCOM ---
CM Note CM Note Notes: 06/06/2017 Case Management Note Met w/pt and life partner Pat ([phone]). Pat's daughter Apurva and Apurva's 14 y.o. son live w/pt and Pat. Pt no longer drives. PT recommends home care. Discussed options with pt, pt in agreement with need for home care. Faxed multiple referrals to agencies near pt's home in [place]. Case Management d/c poc: Home with Home Health RN and PT once authorized by insurance. Case Management to follow. Date Signed: 06/06/2017 02:31 PM Electronically Signed By:Yahaira Abdul RN
[2017-06-06] MEDS: oxyCODONE IR 5 MG TAB PO PRN (21:19)
[2017-06-06] MEDS: guaiFENesin/CODEINE PHOS 10 ML UDCUP PO PRN (21:19)
[2017-06-07] MEDS: ALBUMIN 25% 100 ML IV SCH ×3 (04:48→21:45)
[2017-06-07] MEDS: FUROSEMIDE 40 MG/4 ML VIAL IVP SCH ×3 (06:01→22:12)
[2017-06-07] MEDS: INSULIN LISPRO 100 UNIT/ML SC SCH ×3 (09:01→18:04)
[2017-06-07] MEDS: LACTULOSE 20 GM/30 ML UDCUP PO SCH (09:05)
[2017-06-07] MEDS: SPIRONOLACTONE 50 MG TAB PO SCH (09:05)
[2017-06-07] MEDS: INSULIN GLARGINE 100 UNITS/ML SYRINGE SC SCH ×2 (09:07→21:45)
--- NOTE | 2017-06-07 11:13 | HOSPPROG ---
Hospitalist Progress Note Assessment/Plan: 61 yo M w dm 2, cryptogenic cirrhosis a/w RUE cellulitis and small abscess RUE pustular cellulitis s/p I&D - MSSA -IV ancef improved from admit Cryptogenic cirrhosis (suspect RICO) Volume overload - massive 4+ -IV lasix + IV albumin -continue spironolactone -no ascites, TIPS patent on US continue aggressive diuresis check labs today 06/07 h/o varices DM II -takes U-500 at home -administer lantus here and monitor closely low this AM noted CAD/stent PCM Obesity BMI 37 Pancytopenia - due to cirrhosis proph: scd's no heparin given low platelets and coagulopathy Subjective: I_O poorly recorded but being aggressively diuresed. no fever Objective: Vital Signs Temp Pulse Resp BP Pulse Ox 36.5 C 67 14 112/77 96 06/07/17 07:11 06/07/17 07:11 06/07/17 07:11 06/07/17 07:11 06/07/17 07:11 Laboratory Results 06/04/17 07:55 06/06/17 05:30 06/06/17 06/07/17 06/08/17 05:59 05:59 05:59 Intake Total 2885 2661 474 Output Total 3650 2000 Balance -765 661 474 PT 21.3 SEC (12.0-15.0) H 06/04/17 07:55 INR 1.84 (0.83-1.16) H 06/04/17 07:55 - Physical Exam Constitutional: no apparent distress, appears nourished Eyes: PERRL, anicteric sclera Ears, Nose, Mouth, Throat: moist mucous membranes, hearing normal Cardiovascular: regular rate and rhythym, no murmur, rub, or gallop Respiratory: no respiratory distress, no rales or rhonchi Gastrointestinal: normoactive bowel sounds, soft, non-tender abdomen Genitourinary: No burris in urethra Skin: warm, other (anasarca) Musculoskeletal: full muscle strength, no muscle tenderness Neurologic: AAOx3 ICD10 Worksheet Patient Problems: Problems Problem Status Onset Cellulitis Acute Edema Acute Sepsis Acute Altered mental status Acute Anemia Acute Ascites Acute Cirrhosis Acute Hyperammonemia Acute Jaundice Acute Liver failure Acute Nausea & vomiting Acute Thrombocytopenia Acute
[2017-06-07 11:59] LABS: CALCIUM 9.3 mg/dL (8.5-10.4); CARBON DIOXIDE 19 mEq/l (22-31); CHLORIDE 106 mEq/L (97-110); CREATININE 1.3 mg/dL (0.7-1.3); GLOMERULAR FILTRATION RATE 56; GLUCOSE 127 mg/dL (70-100); SODIUM 142 mEq/L (134-144)
[2017-06-07 13:11] LABS: ANION GAP 17 mEq/L (8-16)
[2017-06-07] MEDS: guaiFENesin/CODEINE PHOS 10 ML UDCUP PO PRN (22:09)
[2017-06-07] MEDS: oxyCODONE IR 5 MG TAB PO PRN (22:09)
[2017-06-08] MEDS: oxyCODONE IR 5 MG TAB PO PRN (04:15)
[2017-06-08] MEDS: guaiFENesin/CODEINE PHOS 10 ML UDCUP PO PRN (04:15)
[2017-06-08 05:10] LABS: ANION GAP 15 mEq/L (8-16); CALCIUM 9.5 mg/dL (8.5-10.4); CARBON DIOXIDE 22 mEq/l (22-31); CHLORIDE 105 mEq/L (97-110); CREATININE 1.4 mg/dL (0.7-1.3); GLOMERULAR FILTRATION RATE 52; GLUCOSE 109 mg/dL (70-100); POTASSIUM 4.1 mEq/L (3.5-5.2); SODIUM 142 mEq/L (134-144)
[2017-06-08] MEDS: ALBUMIN 25% 100 ML IV SCH (05:19)
[2017-06-08] MEDS: FUROSEMIDE 40 MG/4 ML VIAL IVP SCH (05:50)
[2017-06-08] MEDS: INSULIN LISPRO 100 UNIT/ML SC SCH ×2 (09:05→12:39)
[2017-06-08] MEDS: LACTULOSE 20 GM/30 ML UDCUP PO SCH (09:25)
[2017-06-08] MEDS: INSULIN GLARGINE 100 UNITS/ML SYRINGE SC SCH (09:25)
[2017-06-08] MEDS: SPIRONOLACTONE 50 MG TAB PO SCH (09:26)
--- NOTE | 2017-06-08 12:24 | HOSPPROG ---
Hospitalist Progress Note Assessment/Plan: 61 yo M w dm 2, cryptogenic cirrhosis a/w RUE cellulitis and small abscess RUE pustular cellulitis s/p I&D - MSSA -IV ancef improved from admit Cryptogenic cirrhosis (suspect RICO) Volume overload - remains so but now overdiuresed hold diuretics X 2 days, then restart h/o varices DM II -takes U-500 at home -administer lantus here and monitor closely low this AM noted CAD/stent PCM Obesity BMI 37 Pancytopenia - due to cirrhosis proph: scd's no heparin given low platelets and coagulopathy dispo: home today > 30 minutes Subjective: labs reflect diuresis but weight going up. cellulitis improved Objective: Vital Signs Temp Pulse Resp BP Pulse Ox 36.4 C 65 18 130/52 H 95 06/08/17 07:18 06/08/17 07:18 06/08/17 07:18 06/08/17 07:18 06/08/17 07:18 Laboratory Results 06/04/17 07:55 06/08/17 04:16 06/07/17 06/08/17 06/09/17 05:59 05:59 05:59 Intake Total 2661 2448 Output Total 2000 1700 Balance 661 748 PT 21.3 SEC (12.0-15.0) H 06/04/17 07:55 INR 1.84 (0.83-1.16) H 06/04/17 07:55 - Physical Exam Constitutional: no apparent distress, appears nourished Eyes: PERRL, anicteric sclera Ears, Nose, Mouth, Throat: moist mucous membranes, hearing normal Cardiovascular: regular rate and rhythym, no murmur, rub, or gallop, edema Respiratory: no respiratory distress, no rales or rhonchi Gastrointestinal: normoactive bowel sounds, soft, non-tender abdomen Genitourinary: no bladder fullness, No burris in urethra Skin: warm, normal color Musculoskeletal: full muscle strength Neurologic: AAOx3 Psychiatric: interacting appropriately ICD10 Worksheet Patient Problems: Problems Problem Status Onset Cellulitis Acute Edema Acute Sepsis Acute Altered mental status Acute Anemia Acute Ascites Acute Cirrhosis Acute Hyperammonemia Acute Jaundice Acute Liver failure Acute Nausea & vomiting Acute Thrombocytopenia Acute
[2017-06-08 12:25] VITALS: BP 125/48; PULSE 81; RESP 20; TEMP 99.1; O2SAT 94
--- NOTE | 2017-06-08 13:19 | GDS ---
[f rep st] DISCHARGE SUMMARY DISCHARGE DIAGNOSIS: 1. Right upper extremity cellulitis with small abscess secondary to methicillin -susceptible Staphylococcus aureus. 2. Cryptogenic cirrhosis. 3. Anasarca. 4. History of traumatic brain injury. 5. Diabetes. High insulin requirements. 6. History of pacer. 7. History of coronary disease and stents. HOSPITAL COURSE: Please see Admission History and Physical by Dr. Marck Carnes. The patient presented with right upper extremity swelling. He had a recent laceration. There were no sutures. On presentation, he had a small abscess that was identified on ultrasound and was lanced by Dr. Antione Frias. The patient's cellulitis resolved. However, after resuscitation, he was found to be really volume overload. He was given albumin and IV Lasix. His BUN , creatinine, and bicarb reacted, as he had been diuresed. Really, his weight did not appear to change. There is no demonstrable change in his weight. DISCHARGE INSTRUCTIONS: He is discharged home to hold his diuretics for a day and half and then resume on the . He will complete a 10-day course of Keflex , given the abscess and his overall health status. /[id number]/MODL MTDD
--- NOTE | 2017-06-08 14:18 | ASDISCHSUM ---
Discharge Information Plan Status:Home with Home Health Medically Cleared to Leave:06/07/2017 Discharge Date:06/08/2017 01:13 PM CM D/C Disposition:Home, Routine, Self-Care ADT D/C Disposition:Home, Routine, Self-Care Projected Discharge Date:06/08/2017 11:00 AM Transportation at D/C:Family Discharge Delay Reason: Follow-Up Date:06/08/2017 11:00 AM Discharge Slot: Final Diagnosis: Placement Information Referral Type:*Home Health Care Services Referral ID:[id number] Provider Name:[facility] ([facility]) Address 1:[address] [place] [address] Address 2: City:[place] Selection Factors: State:[place] Referral Type:Home Infusion Referral ID:[id number] Provider Name: Address 1: Phone Number: Address 2: Fax Number: City: Selection Factors: State: Patient Contact Information Contact Name:ANDREA Relationship:Life Partner Address:[address] City:[place] Alternate Phone: State/Zip Code:[place] [address] Email: Financial Information Financial Class:Medicare Advantage Plans Primary Plan Desc:[place] Primary Plan Number:[id number] Secondary Plan Desc: Secondary Plan Number: Assessment Information [facility] CM Progress Note CM Note CM Note Notes: Pt admitted for arm cellulitis, infectious disease consult pending. He has been cleared by PT. Anticipate will dc home with support of his when medically stable. DC Plan: Home indepedent unless need IV abx Date Signed: 06/04/2017 11:18 AM Electronically Signed By:Chloé Villarreal RN [facility] CM Progress Note CM Note CM Note Notes: RN concerned about patient's needs at home, thought he could use some HC. OT Not recommending HC OT; no recommendations from PT. Patient may need HC RN? He is presently on IV ABX. CM to follow for discharge needs. Date Signed: 06/05/2017 03:48 PM Electronically Signed By:Nida Hammond LCSW [facility] CM Progress Note CM Note CM Note Notes: 06/06/2017 Case Management Note Met w/pt and life partner Ya ([phone]). Pat's daughter Apurva and Apurva's 14 y.o. son live w/pt and Pat. Pt no longer drives. PT recommends home care. Discussed options with pt, pt in agreement with need for home care. Faxed multiple referrals to agencies near pt's home in [place]. Case Management d/c poc: Home with Home Health RN and PT once authorized by insurance. Case Management to follow. Date Signed: 06/06/2017 02:31 PM Electronically Signed By:Yahaira Abdul RN Case Management Discharge Plan Note Case Management Discharge Discharge Order Complete? Answers: Yes Patient to Obtain Answers: via Family Medications Transportation Arranged Answers: Family/Friends Faxed Final Orders Answers: Yes Agency/Facility Transfer Answers: Yes Report Printed & Faxed to Receiving Agency Family Notified Answers: Yes Notes: in room Discharge Comments Notes: faxed final orders. Family transported home. [facility] aware of d/c. Date Signed: 06/08/2017 02:18 PM Electronically Signed By:Yahaira Abdul RN Intervention Information Intervention Type:*Incorrect Registration Date of Service:06/03/2017 04:55 PM Patient Type:Inpatient Staff Member:JEN Trotter Shelly Hours:0.25 Discipline: Severity:1 (0-1 Hours) Comment:Registered observation, written admit order inpatient status.
--- NOTE | 2017-06-09 13:07 | PDIAF ---
- Diagnosis Diagnosis: cellulitis Code Status: Full Code - Medication Management Discharge Medications: Medications to Continue on Transfer Lactulose 30 gm PO DAILY 06/03/17 [Last Taken 06/02/17] Syringe,Insul U-500,Ndl,0.5ML [Insulin Syringe U-500] 150 units SQ DAILY@18 [Last Taken 06/02/17] Syringe,Insul U-500,Ndl,0.5ML [Insulin Syringe U-500] 250 unit SQ DAILY [Last Taken 06/02/17] Cephalexin [Keflex (*)] 500 mg PO Q6H #24 cap 06/08/17 [Last Taken Unknown] Furosemide [Lasix 80 MG (*)] 160 mg PO DAILY #0 06/08/17 [Last Taken 06/02/17] Spironolactone [Aldactone] 200 mg PO DAILY #0 06/08/17 [Last Taken 06/02/17] Discharge Medications: Refer to the Discharge Home Medication list for PRN reason. - Orders Services needed: Home Care, Physical Therapy, Occupational Therapy Home Care Face to Face: I certify that this patient was under my care and that I had the required [id number] encounter meeting the encounter requirements on the discharge day. My findings support the fact that the patient is homebound as defined in Home Care Face to Face Continued: CMS Chapter 7 Medicare Benefits Manual 30.1.1 , The condition of the patient is such that there exists a normal inability to leave home and consequently, leaving home would require a considerable and taxing effort. Isolation Type: None - Follow Up Care Current Providers and Referrals: TARA EPSTEIN [Other] - As per Instructions
--- NOTE | 2017-06-13 08:21 | PQFORM ---
PHYSICIAN QUERY FORM Needs Your Response This query form is being sent to you to assure this patient record is coded properly. Please respond to the question below: BLEACH RANGE OPERATOR QUESTION: Dr. Carnes, After study, do you consider the cellulitis to be a skin complication caused by the patient's diabetes? yes X no other Thank you, SOPHIA Seth HIM Coding INSTRUCTIONS FOR RESPONSE: Answer question by clicking on the "Edit Document" button. Move cursor to area below the stars. When complete, hit "Save." Click on the "Sign" button, then click "Sign" again. Type in your PIN and hit "Enter." MTDD
== END 2017-06-08 13:13 | disposition home health service (06) | DRG 603 ==
LOC: F2W 16:00 → OBSVTOIN 16:55
PROVIDERS: ADMIT Internal Medicine; ATTEND Internal Medicine
PROC: 0H9BXZZ Drainage of Right Upper Arm Skin, External Approach (ICD-10-PCS; 2017-06-03)
PROC: 02HV33Z Insertion of Infusion Device into Superior Vena Cava, Percutaneous Approach (ICD-10-PCS; principal; 2017-06-05)
DX: L03.113 Cellulitis of right upper limb (principal); L02.413 Cutaneous abscess of right upper limb; B95.61 Methicillin susceptible Staphylococcus aureus infection as the cause of diseases classified elsewhere; E11.9 Type 2 diabetes mellitus without complications; N17.9 Acute kidney failure, unspecified; D61.818 Other pancytopenia; I85.10 Secondary esophageal varices without bleeding; S41.111A Laceration without foreign body of right upper arm, initial encounter; W22.8XXA Striking against or struck by other objects, initial encounter; Y92.9 Unspecified place or not applicable; K74.69 Other cirrhosis of liver; R60.1 Generalized edema; I25.10 Atherosclerotic heart disease of native coronary artery without angina pectoris; F32.9 Major depressive disorder, single episode, unspecified; E66.9 Obesity, unspecified; Z68.37 Body mass index [BMI] 37.0-37.9, adult; I10 Essential (primary) hypertension; E78.5 Hyperlipidemia, unspecified; Z87.820 Personal history of traumatic brain injury; Z79.4 Long term (current) use of insulin; Z95.5 Presence of coronary angioplasty implant and graft; Z95.0 Presence of cardiac pacemaker
CPT/HCPCS: 96365; 97116-GP; 97161-GP; 97165-GO; C1751; G8978-GP-CI; G8979-GP-CI; G8987-GO-CI; G8988-GO-CI; G8989-GO-CI; J0690; J0696; J1815; J1940; J3370; P9047

== ENCOUNTER 2017-07-11 16:07 | Observation (INO) | payer OTHER ==
--- NOTE | 2017-07-11 16:54 | EDPHY ---
H & P Smoking Status: Former smoker Time Seen by Provider: 07/11/17 16:27 HPI/ROS: CHIEF COMPLAINT: Cough, shortness of breath, swollen legs HISTORY OF PRESENT ILLNESS: 61-year-old male presents to the emergency department by private vehicle with his complaining of cough, shortness of breath and swelling in his lower extremities. The patient states it is been going on "for awhile" although his states that is beginning increasingly worse especially the swelling in his lower legs over last few days. He is having difficulty breathing especially when he tries to lie down. He has a complicated past medical history including cryptogenic cirrhosis with recent TIPS procedure September 2016. No fevers or chills. No pain in his chest. Denies melena or blood in his stool. His does report that he had an episode of epistaxis yesterday which last approximately 2 hr. REVIEW OF SYSTEMS: Constitutional: No fever, no chills. Eyes: No double or blurry vision. ENT: No sore throat. Respiratory: cough. shortness of breath. Cardiac: No chest pain. Gastrointestinal: No abdominal pain, vomiting or diarrhea. Genitourinary: No dysuria. Musculoskeletal: No neck or back pain. Skin: No rashes. Neurological: No headache. (Mackenzie Ross) Past Medical/Surgical History: Pacemaker, CAD with stents, cryptogenic cirrhosis, depression, diabetes on insulin, hypercholesterolemia, multiple paracentesis, traumatic brain injury, obesity (Mackenzie Ross) Social History: (Mackenzie Ross) Physical Exam: General Appearance: Alert, no distress. 36.7, 88, 18, 121/41, 99% on room air Eyes: Pupils equal and round. Extraocular motions are all intact. Icteric sclera noted. ENT: Mouth: Mucous membranes moist. Respiratory: Decreased breath sounds especially in the bases.. Cardiovascular: Regular rate and rhythm. Gastrointestinal: Abdomen is obese and distended. Nontender to palpate. No CVA tenderness bilaterally. Neurological: Alert and oriented x 3, cranial nerves II through XII grossly intact Skin: Warm and dry, no rashes. Musculoskeletal: Nontender to palpate along the cervical, thoracic or lumbar spine. Neck is supple. Extremities: 3+ pedal edema noted in the lower extremities. No evidence of cellulitis redness. Psychiatric: Patient is oriented X 3, there is no agitation. (Mackenzie Ross) Constitutional: Initial Vital Signs Temperature (C) 36.7 C 07/11/17 16:18 Heart Rate 88 07/11/17 16:18 Respiratory Rate 18 07/11/17 16:18 Blood Pressure 121/41 H 07/11/17 16:18 O2 Sat (%) 99 07/11/17 16:18 O2 Delivery Mode Room Air Allergies/Adverse Reactions: No Known Allergies Allergy (Verified 07/11/17 16:15) Home Medications: Medication Instructions Recorded Lactulose 30 gm PO DAILY 06/03/17 Furosemide [Lasix 80 MG (*)] 80 mg PO DAILY 07/11/17 Gabapentin [Neurontin 100 MG (*)] 100 - 200 mg PO HS 07/11/17 Insulin Regular, Human [Humulin R 150 unit SQ DAILY@18 07/11/17 U-500] Insulin Regular, Human [Humulin R 250 units SC DAILY 07/11/17 U-500] Benzonatate [Tessalon Pearles] 200 mg PO TID PRN #30 cap 07/12/17 Spironolactone [Aldactone] 100 mg PO DAILY #0 07/12/17 Medical Decision Making ED Course/Re-evaluation: An IV established and laboratory studies were drawn. Patient has pancytopenia. The patient has been chronically anemic. Hematocrit is 23%. Hemoglobin 7.6. Creatinine is normal at 1.1. ProBNP is 824. Chest x-ray reveals no obvious infiltrate. Patient is tachypneic. He is unable to lie flat. He has had dyspnea and swollen legs for quite sometime however this is become acutely worse especially in the last few days. Patient was also seen examined by Dr. Shelia Torres, secondary supervising physician, who agrees with admission. Patient will be admitted to Dr. Page. D-dimer did come back slightly elevated 0.83. CT pulmonary angiogram was ordered to rule out pulmonary embolism. No definite PE noted although this was a limited study given breathing artifact. Reactive lymph nodes are noted in radiologist recommends follow-up study in 3 6 months. (Mackenzie Ross) I have evaluated and participated in the management of this patient. My co- signature indicates that I have reviewed this chart and that I agree with the findings and the plan of care as documented. My personal history and physical findings include: 61 year old male presenting with shortness of breath and cough that have been worsening over the past two days. He reports some chronic shortness of breath, but feels much worse than usual today. His history is significant for cryptogenic cirrhosis s/p TIPS 09/2016, CAD, HTN, DM, and a variceal bleed. On exam: Frequent cough. Lungs with bilateral ronchi, no wheezes. Heart is regular with a systolic murmur. Abdomen is obese, distended , soft. I am unable to assess for organomegaly, given his size. Legs with 3+ pitting edema. Neuro: Alert and appropriate. Moving all four extremities. CXR without infiltrate. EKG with sinus rhythm, first degree block, RBBB (seen previously). Labs reviewed. CTA ordered to assess for PE. Heart failure in ddx with progressive symptoms of dyspnea, inability to lie flat. BNP 824. CXR does not suggest PNA, cough likely viral. Respiratory pathogen panel pending. He is being admitted for further treatment and evaluation. (Shelia Torres) Differential Diagnosis: Shortness of breath including but not limited to pulmonary infectious process, COPD, asthma, pulmonary embolus and congestive heart failure. (Mackenzie Ross) - Data Points Laboratory Results: Laboratory Results 07/11/17 16:44 07/11/17 16:44 Medications Given: Discontinued Medications Albuterol/Ipratropium (Duoneb) 3 ml IH QID KATIE Stop: 01/07/18 20:59 Last Admin: 07/12/17 15:47 Dose: 3 ml Benzonatate (Tessalon Pearles) 200 mg PO TID PRN PRN Reason: Cough, Mild Stop: 01/08/18 10:00 Last Admin: 07/12/17 17:09 Dose: 200 mg Chlorphenir/Hydrocodone Polistirex (Tussionex Suspension) 5 ml PO Q12HRS PRN PRN Reason: Cough, Severe Stop: 01/07/18 19:36 Last Admin: 07/12/17 09:25 Dose: 5 ml Furosemide (Lasix) 80 mg PO DAILY KATIE Stop: 01/08/18 08:59 Last Admin: 07/12/17 09:26 Dose: 80 mg Gabapentin (Neurontin) 100 - 200 mg PO HS KATIE Stop: 01/07/18 20:59 Last Admin: 07/11/17 21:14 Dose: 200 mg Insulin Human Lispro (Humalog Lispro) 0 unit SC [facility] PRN Reason: Protocol Stop: 01/08/18 07:59 Last Admin: 07/12/17 13:01 Dose: 12 unit Insulin Human Regular (Humulin R) 250 unit SC DAILY [facility] Stop: 01/08/18 10:14 Last Admin: 07/12/17 10:38 Dose: 250 units Lactulose (Cephulac) 30 gm PO DAILY [facility] Stop: 01/08/18 08:59 Last Admin: 07/12/17 09:26 Dose: 30 gm Spironolactone (Aldactone) 200 mg PO DAILY [facility] Stop: 01/08/18 08:59 Last Admin: 07/12/17 09:26 Dose: 200 mg Departure - Departure Disposition: [facility] Acute Clinical Impression: Dyspnea Qualifiers: Dyspnea type: shortness of breath Qualified Code(s): R06.02 - Shortness of breath Anemia Qualifiers: Anemia type: unspecified type Qualified Code(s): D64.9 - Anemia, unspecified Congestive heart failure Qualifiers: Congestive heart failure type: unspecified congestive heart failure type Congestive heart failure chronicity: unspecified congestive heart failure chronicity Qualified Code(s): I50.9 - Heart failure, unspecified Condition: Fair
[2017-07-11 16:57] LABS: PLATELET COUNT 35 10^3/uL (150-400)
[2017-07-11 17:08] LABS: INR 1.7 (0.83-1.16); PROTIME(PATIENT) 20.1 SEC (12.0-15.0)
--- NOTE | 2017-07-11 17:08 | CPEKG ---
Heart Rate: 86 RR Interval: 698 P-R Interval: 200 QRSD Interval: 128 QT Interval: 412 QTC Interval: 493 P [place]: -3 QRS [place]: -69 T Wave [place]: 101 EKG Severity - ABNORMAL ECG - EKG Impression: SINUS RHYTHM EKG Impression: RIGHT BUNDLE BRANCH BLOCK EKG Impression: LVH WITH IVCD AND SECONDARY REPOL ABNRM Electronically Signed By: Shelia Torres 11-Jul-2017 17:24:19
[2017-07-11] MEDS ORDERED: IOPAMIDOL (ISOVUE 370) 100 ML BTL IV ONE (18:33)
[2017-07-11] MEDS ORDERED: oxyCODONE IR 5 MG TAB PO PRN (19:47)
[2017-07-11] MEDS ORDERED: D50W 25 GM/50 ML SYR IVP PRN (19:49)
--- NOTE | 2017-07-11 20:46 | GHP ---
[f rep st] HISTORY AND PHYSICAL DATE OF ADMISSION: 07/11/2017 CHIEF COMPLAINT: Shortness of breath. HISTORY OF PRESENT ILLNESS: This 61-year-old man with cirrhosis and coronary artery disease presents with shortness of breath. This has been associated with a cough. This has been going on for about a month or 2. However, it is acutely worse in the last 2 days. No exposure to sick contacts. No fevers at home. He had an episode of epistaxis yesterday, which resolved after 2 hours. He is not complaining of any chest pain. He has chronic lower extremity edema. He was admitted here for right upper extremity cellulitis and abscess, which was drained and grew Staphylococcus aureus. He has completed a course of antibiotics for this. PAST MEDICAL/SURGICAL HISTORY: 1. Cryptogenic cirrhosis, status post TIPS in September of 2016. 2. Coronary artery disease with stents. 3. Diabetes mellitus on high doses of U500 insulin. 4. Hypertension. 5. Hyperlipidemia. 6. History of variceal bleed. MEDICATIONS: Please see medication reconciliation. ALLERGIES: No known drug allergies. SOCIAL HISTORY: He is accompanied by his . He lives at home. He has home care. FAMILY HISTORY: Reviewed and noncontributory. REVIEW OF SYSTEMS: A 10-point review of systems is conducted and is negative except per HPI. PHYSICAL EXAMINATION: VITAL SIGNS: Blood pressure 128/59, heart rate 83, respiration rate 21, saturating 97% on room air. Temperature is 36.8. GENERAL : The patient is an obese man who is resting in bed. He appears quite uncomfortable. He is wearing a facemask. HEENT: Shows to be normocephalic, atraumatic. CARDIOVASCULAR: Regular rate and rhythm. He has a 2/6 systolic murmur. PULMONARY: He has bilateral rhonchi. He is coughing. I do not appreciate any wheezes or rales. SKIN: Exam showed no rash. : Exam shows no Prieto NEUROLOGIC: Exam shows him to be alert and oriented x3. He is moving all extremities. PSYCHIATRIC: Exam shows normal mood and affect. EXTREMITIES : Exam shows bilateral lower extremities with 3+ pitting edema. LABORATORY DATA: Hemoglobin 7.6. INR is 1.7. D-dimer 0.8. Bilirubin is 2.9; this is baseline. BNP is 824. Troponin is 0.032. IMAGING DATA: 1. ECG, which I personally viewed and interpreted shows sinus rhythm and first degree AV block. He has a right bundle branch block. He previously had a right bundle branch block; QRS is wider. It is not significantly changed from his prior, however. 2. CT angiogram of his chest shows no pulmonary embolism, though it is a slightly limited study. Cardiomegaly, pacemaker, some perihilar bronchial wall thickening, lymphadenitis, cirrhosis, TIPS, and splenomegaly. IMPRESSION AND PLAN: 1. Dyspnea/cough: Most consistent with a viral etiology. I am sending a respiratory pathogen panel now. There is no pulmonary embolism. Would also consider hepatopulmonary syndrome or cardiac issues. We will send for an echocardiogram. 2. Murmur: New per his . We will check an echocardiogram. 3. Cryptogenic cirrhosis: We will continue his diuretics, as well as lactulose. He has a history of varicocele bleed. I do not think he has any significant hemorrhage right now. 4. Recent epistaxis: Likely due to thrombocytopenia. It has resolved. 5. Diabetes mellitus: He is on very high doses of U500. I will continue this , if he is able to bring in his own. Otherwise we will follow his glucoses and provide a high dose sliding scale. 6. Coronary artery disease, status post stents: Not having any chest pain currently. We will get another troponin along with his daily laboratories. EKG shows a slightly wider QRS. Also I have ordered an echocardiogram. I think this is less likely to be ischemic in nature. 7. Lymphadenopathy on CT: Needs repeat CT in 3-6 months /[id number]/MODL MTDD
[2017-07-11] MEDS ORDERED: GABAPENTIN 100 MG CAP PO SCH (21:00)
[2017-07-11] MEDS: HYDROcodone/CPM TUSSIONEX 5 ML UDSYR PO PRN (21:14)
[2017-07-11] MEDS: IPRATROPIUM/ALBUTEROL 3 ML DEYVIAL IH SCH (21:24)
[2017-07-12 05:22] LABS: PLATELET COUNT 36 10^3/uL (150-400)
[2017-07-12] MEDS: IPRATROPIUM/ALBUTEROL 3 ML DEYVIAL IH SCH ×3 (05:48→15:47)
[2017-07-12 08:42] VITALS: RESP 16
[2017-07-12] MEDS ORDERED: FUROSEMIDE 40 MG TAB PO SCH (09:00)
[2017-07-12] MEDS ORDERED: INSULIN REGULAR HUMAN SC SCH (09:00)
[2017-07-12] MEDS ORDERED: LACTULOSE 20 GM/30 ML UDCUP PO SCH (09:00)
[2017-07-12] MEDS ORDERED: SPIRONOLACTONE 100 MG TAB PO SCH (09:00)
[2017-07-12] MEDS ORDERED: [UNRECOGNIZED DRUG - OTHER] SQ SCH (09:00)
[2017-07-12] MEDS: HYDROcodone/CPM TUSSIONEX 5 ML UDSYR PO PRN (09:25)
[2017-07-12] MEDS: INSULIN LISPRO 100 UNIT/ML SC SCH ×2 (10:06→13:01)
--- NOTE | 2017-07-12 10:12 | ASMTCASEMG ---
Living Arrangements What is your living Answers: With Partner arrangement? Who do you live with? Type Of Residence What kind of residence do Answers: House you live in? Discharge Plan Comments Coordination Status Comments Notes: Patient is a 61yo male with cirrohosis and coronary artery disease who presented to the ED with shortness of breath. He was admitted for Dyspnea/cough, a newly identified heart murmur, cryptogenic cirrhosis, recent epistaxis, diabetes mellitus, and coronary artery disease. No therapies have been ordered. D/C needs TBD. CM will follow. Date Signed: 07/12/2017 10:12 AM Electronically Signed By:Isabella Nuñez LCSW
[2017-07-12] MEDS ORDERED: INSULIN REGULAR HUMAN 100 UNIT/ML SC SCH ×2 (10:15→18:00)
[2017-07-12 11:36] VITALS: TEMP 97.8
--- NOTE | 2017-07-12 11:40 | ECHO ---
[email or web address] [address] [address] Main: [phone] Fax: Transthoracic Echocardiogram Name: LOREE CROUCH MR#: [id number] Study Date: 07/12/2017 Study Time: 08:13 AM Date of : 1955 Age: 61 year(s) Height: 177.8 cm (70 in.) Weight: 95.26 kg (210 lb.) BSA: 2.13 m2 Gender: Male Examination: Echo Indication: Dyspnea/ hx pacer/stents/WI Image Quality: Contrast: Requested by: Logan Page BP: / Heart Rate: Rhythm: Indication: Dyspnea/ hx pacer/stents/WI Procedure Staff Ski Maker: Winsome Kumar Physician: Jordy Tineo Requesting Provider: Conclusions: Normal size left ventricle. No LV hypertrophy. The ejection fraction is estimated to be 45-50 %. Diastolic dysfunction is present. . LV apex appears akinetic.. There is a pacemaker lead noted in the right ventricle. Mild mitral valve regurgitation is present. AV max PG is 19mmHG. AV mean PG is 10mmHG.. Mild tricuspid regurgitation is present. Measurements: Chambers Valvular Assessment AV/MV Valvular Assessment TV/PV Normal Normal Normal Name Value Range Name Value Range Name Value Range Ao Ana (MM): 3.8 cm (2.2 cm-3.7 AV Vmax: 2.15 m/s (1 m/s-1.7 TR Vmax: 2.89 mm/s ( - ) cm) m/s) TR PGmax: 33 mmHg ( - ) IVSd (2D): 1.2 cm (0.6 cm-1.1 AV maxP mmHg ( - ) syst. PAP: 38 mmHg ( - ) cm) AV meanP mmHg ( - ) LVDd (2D): 5.2 cm (4.2 cm-5.9 MV E Vmax: 1.51 m/s ( - ) cm) MV A Vmax: 0.62 m/s ( - ) LVDs (2D): 4.1 cm (2.1 cm-4 MV E/A: 2.44 ( - ) cm) LVPWd (2D): 0.7 cm (0.6 cm-1 cm) LVEF (2D): 41 (>=54 %) EF Range: 45-50 % Continued Measurements: Chambers Valvular Assessment AV/MV Valvular Assessment TV/PV Patient: LOREE CROUCH Study Date: 07/12/2017 Page 1 of 2 08:13 AM Name Value Name Value Name Value LADs: 4.3 cm MV E/E' Septal: 30.40 CVP (est.): 5 mmHg LADs Lon.3 cm MV E/E' Lateral: 27.70 LA Area: 19.4 cm2 Findings: Left Ventricle: Normal size left ventricle. No LV hypertrophy. The ejection fraction is estimated to be 45-50 %. Diastolic dysfunction is present. . LV apex appears akinetic.. Right Ventricle: Normal size right ventricle. There is a pacemaker lead noted in the right ventricle. Left Atrium: The left atrium is normal in size. Right Atrium: The right atrium is borderline dilated. Mitral Valve: The mitral valve is normal in appearance and function. Mild mitral valve regurgitation is present. Aortic Valve: The aortic valve is normal in appearance and function. AV max PG is 19mmHG. AV mean PG is 10mmHG.. Tricuspid Valve: The tricuspid valve is normal in appearance and function. Mild tricuspid regurgitation is present. Pulmonic Valve: Pulmonary valve not well visualized. Aorta: The aorta is normal. Pericardium: No pericardial effusion. Exam Comments: Technically difficult study.. (No Signature Object) Patient: LOREE CROUCH Study Date: 07/12/2017 Page 2 of 2 08:13 AM [id number]
[2017-07-12] MEDS: BENZONATATE 100 MG CAP PO PRN ×2 (14:27→17:09)
[2017-07-12 15:06] VITALS: BP 113/55; PULSE 75; O2SAT 97
--- NOTE | 2017-07-12 16:11 | PDIAF ---
- Diagnosis Code Status: Full Code - Medication Management Discharge Medications: Medications to Continue on Transfer Lactulose 30 gm PO DAILY 06/03/17 [Last Taken 07/11/17] Furosemide [Lasix 80 MG (*)] 80 mg PO DAILY 07/11/17 [Last Taken 07/11/17] Gabapentin [Neurontin 100 MG (*)] 100 - 200 mg PO HS 07/11/17 [Last Taken ] Insulin Regular, Human [Humulin R U-500] 150 unit SQ DAILY@18 07/11/17 [Last Taken 07/10/17] Insulin Regular, Human [Humulin R U-500] 250 units SC DAILY 07/11/17 [Last Taken 07/11/17] Benzonatate [Tessalon Pearles] 200 mg PO TID PRN #30 cap 07/12/17 [Last Taken Unknown] Spironolactone [Aldactone] 100 mg PO DAILY #0 07/12/17 [Last Taken 07/11/17] Group Home Antibiotics: n/a Discharge Medications: Refer to the Discharge Home Medication list for PRN reason. PICC Care - Routine: N/A - Orders Services needed: Registered Nurse, Master Strategic Communications Specialist Home Care Face to Face: 07/12/2017 Millie Turner MD Oxygen: no Diet Recommendation: cardiac -low fat low salt Diet Texture: Regular Texture Diet Weigh Patient: weekly Prieto: Not applicable Jose Stockings Discontinue Date: continuous Additional: non compliant with CPAP- VERY important to get him using it, may need to contact PCP/supply company for new equipment, needs pulm and/or ENT eval re recurrent cough, - Labs/Radiology [facility] Date: 07/14/17 - Follow Up Care Current Providers and Referrals: NONE *PRIMARY CARE P,. [Primary Care Provider] - 3-5 days (PCP is Dr Conrad, [facility]. Dr Quarles is primary wrist hemmer, Dr Middleton is primary GI)
[2017-07-12] MEDS ORDERED: INSULIN REGULAR HUMAN SQ SCH (18:00)
[2017-07-12] MEDS ORDERED: [UNRECOGNIZED DRUG - OTHER] SQ SCH (18:00)
[2017-07-13] MEDS ORDERED: SPIRONOLACTONE 100 MG TAB PO SCH (09:00)
--- NOTE | 2017-07-13 09:31 | ASDISCHSUM ---
Discharge Information Plan Status:Home with Home Health Medically Cleared to Leave:07/11/2017 Discharge Date:07/12/2017 05:16 PM D/C Disposition: ADT D/C Disposition:HHSNOTBCH Projected Discharge Date:07/12/2017 11:00 AM Transportation at D/C: Discharge Delay Reason: Follow-Up Date:07/12/2017 11:00 AM Discharge Slot: Final Diagnosis: Placement Information Referral Type:*Home Health Care Services Referral ID:[id number] Provider Name:[facility] ([facility]) Address 1:[address] [address] Address 2: City:[place] Selection Factors: State:[place] Patient Contact Information Contact Name:ANDREA Relationship:Life Partner Address:[address] [place] [address] City:[place] Alternate Phone: State/Zip Code:[place] [address] Email: Financial Information Financial Class:Medicare Advantage Plans Primary Plan Desc:[facility] The car easily beat Primary Plan Number:[id number] Secondary Plan Desc: Secondary Plan Number: Assessment Information [facility] Initial CM Assessment Living Arrangements What is your living Answers: With Partner arrangement? Who do you live with? Type Of Residence What kind of residence do Answers: House you live in? Discharge Plan Comments Coordination Status Comments Notes: Patient is a 61yo male with cirrohosis and coronary artery disease who presented to the ED with shortness of breath. He was admitted for Dyspnea/cough, a newly identified heart murmur, cryptogenic cirrhosis, recent epistaxis, diabetes mellitus, and coronary artery disease. No therapies have been ordered. D/C needs TBD. CM will follow. Date Signed: 07/12/2017 10:12 AM Electronically Signed By:Isabella Nuñez LCSW Case Management Discharge Plan Note Case Management Discharge Discharge Order Complete? Answers: Yes Patient to Obtain Answers: via Family Medications Transportation Arranged Answers: Family/Friends EMTALA Complete Answers: No Case Management Transport Answers: No Form Complete Faxed Final Orders Answers: Yes Agency/Facility Transfer Answers: Yes Report Printed & Faxed to Receiving Agency Family Notified Answers: Yes Discharge Comments Notes: Pt is being discharged today. GERRY spoke w/ Dr. Turner regarding d/c POC. Dr. Turner is recommending JAKOB, RN to do some educating. CM met w/ pt and family for dispo planning. Pt and family are agreeable to HC; RN. Pt is current w/ [facility]. CM sent d/c orders to [facility]. CM available for changes. Plan: Edin ROBERT; RN Date Signed: 07/12/2017 04:22 PM Electronically Signed By:THANH Benites Intervention Information Intervention Type:*BEATRIZ-Signed Date of Service:07/12/2017 10:42 AM Patient Type:Observation Staff Member:Keily Bustillos Hours: Discipline: Severity: Comment:
--- NOTE | 2017-07-14 04:25 | GDS ---
[f rep st] DISCHARGE SUMMARY SERVICE: [facility] hospitalist. CONSULTATIONS: None. PROCEDURES: 1. CT angiogram of the chest, no pulmonary embolism, positive cardiomegaly, pacemaker, peribronchial thickening, lymphadenitis, changes of cirrhosis, transjugular intrahepatic portosystemic shunt, and splenomegaly. 2. Echocardiogram with normal size left ventricle, no left ventricular hypertrophy, ejection fractio n of 45% to 50%, positive diastolic dysfunction, akinetic left ventricular apex, pacemaker in the rig ht ventricle, mild mitral regurgitation, borderline right atrium dilation, mild tricuspid regurgitati on, no pericardial effusion, normal aorta (technically difficult study because of body habitus). 3. Chest x-ray: Mild stable cardiomegaly, peribronchial thickening, resolution of a previously note d bilateral lower lobe interstitial infiltrate (compared to previous x-ray 05/04/2017). ADMISSION DIAGNOSES: 1. Dyspnea/cough. 2. Heart murmur. 3. Cryptogenic cirrhosis. 4. Poorly-controlled diabetes with very high dose insulin dependence. 5. Coronary artery disease, status post stents. 6. Lymphadenopathy on CT chest scan. DISCHARGE DIAGNOSES: 1. Dyspnea/cough. 2. Heart murmur. 3. Cryptogenic cirrhosis. 4. Poorly-controlled diabetes with very high dose insulin dependence. 5. Coronary artery disease, status post stents. 6. Lymphadenopathy on CT chest scan. INITIAL HISTORY AND PHYSICAL: Please see previously dictated note by Dr. Page. HOSPITAL COURSE: The patient is a 61-year-old man with multiple serious comorbid medical problems wh o was admitted to the hospital for observation after he was having increasing dyspnea and cough off a nd on for several weeks. He was monitored overnight. He was afebrile throughout his stay, and was n ot hypoxic. Blood pressure was also stable. Echocardiogram was ordered and did not show any acute a bnormalities. He is quite anemic with a hemoglobin of 7.6, but that is chronic for him. He was also found to be thrombocytopenic with a platelet count of 35, but that is also chronic for him. His yonatan er enzymes show slightly elevated bilirubin at 1.0 conjugated, 2.2 unconjugated (also chronic for him ). Blood sugars were markedly elevated throughout his stay, averaging between 240 and greater than 3 50. He did receive nebulizer treatments and oral cough medication which did slightly decrease his co ughing. On the day of discharge, he also received an extra dose of Aldactone (normally 100 mg a day, but he received 200 mg that morning). No change to his chronic swelling was noted. He was fitted w ith HENRI hose, instructed to wear them at all times. No emergent cause could be found for his recurre nt cough. Spent a long time educating him and his regarding possible causes of chronic cough, i ncluding GERD, laryngeal obstruction, postnasal drainage. Of note, he has chronic obstructive sleep apnea, and is noncompliant with his CPAP machine (because he has to get up so frequently at night to urinate and does not like to take it on and off). He has never seen a outdoor power equipment mechanic, per his report. He was seen about 2 or 3 weeks ago by his primary marketing communications specialist's office, Dr. Quarles. I have stron gly encouraged him to restart using his CPAP anytime he is sleeping. To try to sleep slightly uprigh t in bed or in a rocker to decrease the likelihood of heartburn or GERD. Suggest that his primary ca re provider consider a referral to Outpatient Pulmonology and/or Outpatient ENT for further evaluatio n of chronic cough. He also could follow up with his primary corporate development analyst, Dr. Lawler, for fu rther evaluation of possible GERD. He was referred to home health care services to continue with edu cation regarding diet choices, weight loss, diabetes in general, as his blood sugars are very poorly controlled on his current regimen. He and his felt comfortable with discharge today. No changes to his chronic medications were ma de. He should call his primary care provider, Dr. Conrad at [facility] in [place], for an appointment wi martin the next few days. He should schedule other appointments as above. Other issue for Primary Car e to follow up is lymphadenopathy noted on chest CT scan. Recommendation from Radiology is to consid er repeat CT imaging in 3-6 months. Copy requested to: [facility] Perfect[facility] [place] /[id number]/MODL
== END 2017-07-12 17:16 | disposition home health service (06) ==
LOC: F3E 19:23
PROVIDERS: ADMIT Student in an Organized Health Care Education/Training Program; ATTEND Student in an Organized Health Care Education/Training Program
DX: R06.00 Dyspnea, unspecified (principal); R05 Cough; R01.1 Cardiac murmur, unspecified; K74.69 Other cirrhosis of liver; E11.9 Type 2 diabetes mellitus without complications; I25.10 Atherosclerotic heart disease of native coronary artery without angina pectoris; R59.0 Localized enlarged lymph nodes
CPT/HCPCS: 71046; 71275; 93005; 93306; G0378; J1815; Q9967; 82947-QW

== ENCOUNTER 2017-10-10 16:09 | Inpatient (IN) | payer OTHER ==
[2017-10-10 16:58] LABS: PLATELET COUNT 30 10^3/uL (150-400)
[2017-10-10 16:59] LABS: INR 1.8 (0.83-1.16)
--- NOTE | 2017-10-10 16:59 | EDPHY ---
H & P Time Seen by Provider: 10/10/17 16:18 HPI/ROS: CHIEF COMPLAINT: Shortness of breath, diffuse swelling HISTORY OF PRESENT ILLNESS: 61-year-old male with cryptogenic cirrhosis, diabetes and CAD presents with shortness of breath and diffuse swelling. He has a history of ascites and is on spironolactone and Lasix. 2 months ago, he noticed increasing swelling in his lower extremities. He now has bilateral lower extremity swelling, groin swelling and increasing abdominal swelling. Associated with shortness of breath and inability to take a deep breath. He is short of breath at rest, but particularly with exertion. Associated with a frequent cough, no fever or chest pain. 20 lb weight gain recently. REVIEW OF SYSTEMS: Constitutional: No fever, no chills Eyes: No visual changes ENT: No sore throat Cardiac: No chest pain Gastrointestinal: No nausea, no vomiting, no abdominal pain Genitourinary: no dysuria Musculoskeletal: No leg pain Skin: No rash Neurological: No headache Psychiatric: No anxiety Past Medical/Surgical History: Cryptogenic cirrhosis Diabetes CAD Social History: Smoking Status: Former smoker Physical Exam: General Appearance: Alert, pleasant, dyspneic with minimal movement Eyes: Pupils equal and round, no conjunctival pallor or injection ENT, Mouth: Mucous membranes moist Neck: Normal inspection Respiratory: Decreased air exchange, decreased breath sounds at the bases Cardiovascular: Regular rate and rhythm Gastrointestinal: Abdomen is distended, nontender Genitourinary: 3+ edema of the scrotum and penis Neurological: A&O, nonfocal exam Skin: Warm and dry Extremities: 3+ pedal edema Psychiatric: Mood and affect normal Constitutional: Initial Vital Signs Temperature (C) 36.5 C 10/10/17 16:13 Heart Rate 87 10/10/17 16:13 Respiratory Rate 22 H 10/10/17 16:13 Blood Pressure 127/67 H 10/10/17 16:13 O2 Sat (%) 95 10/10/17 16:13 O2 Delivery Mode Room Air Allergies/Adverse Reactions: No Known Allergies Allergy (Verified 10/10/17 16:11) Home Medications: Medication Instructions Recorded Lactulose 30 gm PO DAILY 06/03/17 Furosemide [Lasix 80 MG (*)] 80 mg PO DAILY 07/11/17 Gabapentin [Neurontin 100 MG (*)] 100 mg PO BID 07/11/17 Insulin Regular, Human [Humulin R 150 unit SQ DAILY@18 07/11/17 U-500] Insulin Regular, Human [Humulin R 250 units SC DAILY 07/11/17 U-500] Spironolactone [Aldactone] 100 mg PO DAILY #0 07/12/17 Simvastatin 40 mg PO DAILY 10/10/17 Medical Decision Making - Diagnostics EKG Interpretation: EKG interpreted by me reveals NSR, rate 81, RBBB, poor R wave progression. Imaging Results: Chest X-Ray 10/10/17 17:00 Impression: Mild CHF/fluid overload with small right pleural effusion. Abd ultrasound: minimal ascites ED Course/Re-evaluation: This patient presents with anasarca. Oxygen saturation is normal, though he is quite dyspnea with minimal exertion. Oxygen by nasal cannula placed. EKG reveals no evidence of ischemia. Abdominal ultrasound ordered to evaluate for ascites and possible paracentesis. However, ultrasound shows minimal ascites. Chest x-ray reveals pulmonary edema. Lasix 40 mg IV given for pulmonary edema and anasarca. Severe anemia present, slightly lower than prior, could be contributing to SOB. Type and screen sent. No h/o GIB or other hemorrhage; likely secondary to chronic disease. He will need to be admitted for diuresis and further evaluation. The hospitalist service was consulted for admission. Differential Diagnosis: includes though not limited to pneumonia, ACS, empyema, ascites, PE. - Data Points Laboratory Results: Laboratory Results 10/10/17 16:35 10/10/17 16:35 Medications Given: Furosemide (Lasix Injection) 40 mg IVP BID@0900,1500 KATIE Stop: 04/09/18 08:59 Last Admin: 10/13/17 16:27 Dose: 40 mg Gabapentin (Neurontin) 100 mg PO BID KATIE Stop: 04/08/18 20:59 Last Admin: 10/13/17 20:49 Dose: 100 mg Insulin Glargine (Lantus Syringe) 25 units SC BID KATIE Stop: 04/11/18 20:59 Last Admin: 10/13/17 20:49 Dose: 25 units Insulin Human Lispro (Humalog Lispro) 6 - 30 unit SC TIDMEAL [facility] PRN Reason: Protocol Stop: 04/09/18 17:59 Last Admin: 10/13/17 18:11 Dose: 30 unit Lactulose (Cephulac) 30 gm PO DAILY KATIE Stop: 04/09/18 08:59 Last Admin: 10/13/17 08:41 Dose: 30 gm Spironolactone (Aldactone) 100 mg PO DAILY KATIE Stop: 04/09/18 08:59 Last Admin: 10/13/17 08:41 Dose: 100 mg Discontinued Medications Furosemide (Lasix Injection) 40 mg IVP EDNOW ONE Stop: 10/10/17 17:34 Last Admin: 10/10/17 18:32 Dose: 40 mg Insulin Glargine (Lantus Syringe) 30 units SC ONCE@2100 ONE Stop: 10/11/17 21:01 Last Admin: 10/11/17 20:05 Dose: 30 units Insulin Glargine (Lantus Syringe) 40 units SC HS [facility] Stop: 04/10/18 20:59 Last Admin: 10/12/17 21:16 Dose: 40 units Insulin Human Regular (Humulin R) 0 unit SC ACHS KATIE PRN Reason: Protocol Stop: 04/08/18 20:59 Last Admin: 10/11/17 13:53 Dose: 8 units Departure - Departure Disposition: [facility] Acute Clinical Impression: Anasarca Cirrhosis Qualifiers: Hepatic cirrhosis type: unspecified hepatic cirrhosis Ascites presence: with ascites Qualified Code(s): K74.60 - Unspecified cirrhosis of liver Condition: Fair
[2017-10-10] MEDS ORDERED: FUROSEMIDE 40 MG/4 ML VIAL IVP ONE (17:33)
--- NOTE | 2017-10-10 17:56 | CPEKG ---
Heart Rate: 81 RR Interval: 741 P-R Interval: 192 QRSD Interval: 120 QT Interval: 412 QTC Interval: 479 P [place]: 7 QRS [place]: -62 T Wave [place]: 106 EKG Severity - ABNORMAL ECG - EKG Impression: SINUS RHYTHM EKG Impression: RBBB EKG Impression: BORDERLINE R WAVE PROGRESSION, ANTERIOR LEADS Electronically Signed By: Teresa Bartlett 10-Oct-2017 20:32:03
[2017-10-10] MEDS ORDERED: D50W 25 GM/50 ML SYR IVP PRN (19:53)
[2017-10-10] MEDS ORDERED: ONDANSETRON 4 MG/2 ML VIAL IVP PRN (19:54)
[2017-10-10] MEDS ORDERED: ACETAMINOPHEN 500 MG TAB PO PRN (19:54)
--- NOTE | 2017-10-10 20:30 | GHP ---
[f rep st] HISTORY AND PHYSICAL DATE OF ADMISSION: 10/10/2017 CHIEF COMPLAINT: Shortness of breath. HISTORY: Patient is a 61-year-old male with cryptogenic cirrhosis, presenting with worsening edema f or the last 1-1/2 weeks. He also has worsening shortness of breath, says he has difficulty taking de ep breaths and dyspnea on exertion. He saw Dr. Lawler as an outpatient, his steam hand, and diure tics were increased. However, it made no difference and he did not increase his urination. He is sw ollen all the way to his groin and scrotum as well as up onto his abdominal wall. He has had a unrel enting cough for the last 2 months. PAST MEDICAL HISTORY: 1. Cryptogenic cirrhosis. 2. Intractable ascites, status post TIPS. 3. Variceal bleed, status post banding. 4. Hepatic encephalopathy. 5. Diabetes type 2. 6. Coronary artery disease, status post stent. 7. Obstructive sleep apnea, CPAP noncompliance. 8. Traumatic brain injury. 9. Pacemaker. MEDICATIONS: Please see computer record for full detailed list. ALLERGIES: No known drug allergies. SOCIAL HISTORY: Distant smoking history. No alcohol. Lives with his . REVIEW OF SYSTEMS: Complete review of systems obtained. Review of systems negative for constitution al, HEENT, GI, pulmonary, cardiovascular, , hematology, skin, musculoskeletal, endocrine, psych, ex cept for positives and negatives as noted in HPI. FAMILY HISTORY: Reviewed and noncontributory to presenting complaint. PHYSICAL EXAMINATION: GENERAL: Well-developed, well-nourished male in no acute distress. VITAL SIGN S: Temperature 36.5, pulse 87, blood pressure 127/67, saturating 95% on room air. EYES: Icteric co njunctivae. Pupils equal and react to light. ENT: Normal ears and nose. Hearing intact. Normal l ips and teeth. Oropharynx moist. NECK: Trachea midline. No thyromegaly. CHEST: Normal respirato ry effort. LUNGS: Clear to auscultation bilaterally. CARDIOVASCULAR: Regular rate, rhythm. No mur mur. 3 to 4+ lower extremity edema with scrotal edema extending all way up onto his abdominal wall. ABDOMEN: Soft, nontender. No hepatosplenomegaly. SKIN: Warm, dry, intact without rash except for some erythema related to distress of skin from swelling. MUSCULOSKELETAL: No cyanosis or clubbing. Strength 5/5 upper and lower extremities. NEUROLOGIC: Cranial nerves intact. Normal sensation to light touch. PSYCH: Alert and oriented x3. Normal affect. Normal judgment and insight. Normal me yumiko. LABS: White count 5.74, hematocrit 23.8, platelets are pending. Sodium 135, potassium 5.2, chloride 105, bicarb 17, BUN 26, creatinine 1.1, glucose 147. Total bili is 5.7, conjugated bili is 1.4. Tr oponin is negative. EKG viewed by me. My personal interpretation is sinus rhythm with interventricu lar conduction delay. Chest x-ray shows mild CHF. Abdominal ultrasound shows small volume ascites. ASSESSMENT/PLAN: 1. Anasarca. He presents massively volume overloaded. Will diurese with intravenous Lasix. I will continue his spironolactone but watch his potassium closely as it is mildly elevated; however, I ant icipate this will fall with intravenous Lasix. We will check an ultrasound to evaluate his transjugu lar intrahepatic portosystemic shunt patency. The transjugular intrahepatic portosystemic shunt cont inues to give him good ascites control as there is currently minimal ascites and abdominal distention appears to be all abdominal subcutaneous wall edema. 2. Cryptogenic cirrhosis. His LFTs are only slightly above his previous baseline. He does have a h istory of extensive complications including a variceal bleed and hepatic encephalopathy. We will con tinue his lactulose. 3. Obstructive sleep apnea. He is continuous positive airway pressure noncompliant because he is up urinating multiple times throughout the night and it is too much equipment to be taking on and off s o frequently. 4. Coronary artery disease, status post stent. We will hold his statin drug due to his cirrhosis an d LFT elevations. He also has very low platelets at baseline which prohibits anti-platelet treatment. 5. Diabetes type 2. We will continue his home insulin plus an insulin sliding scale. COR STATUS: Full. ADMISSION STATUS: Will admit to inpatient. I anticipate greater than 2 midnights given massive degr ee of diuresis that is going to be needed. DVT PROPHYLAXIS: He is low risk given his severe thrombocytopenia. /[id number]/MODL
[2017-10-10] MEDS: GABAPENTIN 100 MG CAP PO SCH (22:57)
[2017-10-10] MEDS: INSULIN REGULAR HUMAN 100 UNIT/ML UNIT SC SCH (22:57)
[2017-10-11 04:39] LABS: INR 1.91 (0.83-1.16)
--- NOTE | 2017-10-11 04:40 | PDMN ---
Medical Necessity Medical necessity: Patient meets inpatient criteria per physician note and MCG M -190 Heart Failure vs M-570 Liver Disease Complications ( worsening edema and shortness of breath, anasarca/edema to groin, scrotum, abd wall; CXR shows mild CHF with small R pleural effusion; Cr 1.1, total bili 5.7, hx of cryptogenic cirrhosis and TIPS, ongoing lactulose for hepatic encephalopathy; anticipated LOS > 2 midnights for massive IV duresis, close monitoring of K+)
[2017-10-11 04:45] LABS: PLATELET COUNT 24 10^3/uL (150-400)
--- NOTE | 2017-10-11 08:43 | HOSPPROG ---
Hospitalist Progress Note Assessment/Plan: # anasarca - 20kg wt gain since July - cont lasix 40 iv bid, aldactone 100 daily - low threshold to involve renal or GI - follow daily weights, BMPs - given marked change in fluid status, will repeat echo (last 07/2017 with EF 45%) # cryptogenic cirrhosis - MELD 21 (approx 20% 3 month mortality) - HE - cont lactulose - hx variceal bleed s/p banding - s/p TIPS # DM2 - on U500 - he will bring in his home insulin # anemia - slightly lower than baseline; no evidence of rapid blood loss - transfuse 1U PRBC # thrombocytopenia - slightly lower than baseline; follow daily # CAD s/p stent - trop neg, no CP - no asa with low plts; no statin d/t cirrhosis # s/p ppm # STEFANIE - CPAP non-compliance Subjective: feels very swollen; no CP; ongoing cough Objective: Vital Signs Temp Pulse Resp BP Pulse Ox 36.8 C 73 21 H 113/56 L 100 10/11/17 08:00 10/11/17 08:00 10/11/17 08:00 10/11/17 08:00 10/11/17 08:00 Laboratory Results 10/11/17 03:20 10/11/17 03:34 10/10/17 10/11/17 10/12/17 05:59 05:59 05:59 Intake Total 220 Output Total 800 Balance -580 PT 22.0 SEC (12.0-15.0) H 10/11/17 03:20 INR 1.91 (0.83-1.16) H 10/11/17 03:20 chart reviewed CXR personally reviewed ECG personally reviewed US reviewed - Physical Exam Constitutional: obese, uncomfortable Cardiovascular: regular rate and rhythym, no murmur, rub, or gallop Respiratory: no respiratory distress, inspiratory crackles (bilat bases), No expiratory wheeze, No bronchial breath sounds Gastrointestinal: soft, non-tender abdomen, no palpable masses, ascites Genitourinary: other (scrotal edema) ICD10 Worksheet Patient Problems: Problems Problem Status Onset Anasarca Acute Cirrhosis Acute Altered mental status Acute Anemia Acute Ascites Acute Cellulitis Acute Congestive heart failure Acute Dyspnea Acute Edema Acute Hyperammonemia Acute Jaundice Acute Liver failure Acute Nausea & vomiting Acute Sepsis Acute Thrombocytopenia Acute
[2017-10-11] MEDS: FUROSEMIDE 40 MG/4 ML VIAL IVP SCH ×2 (09:27→16:15)
[2017-10-11] MEDS: LACTULOSE 20 GM/30 ML UDCUP PO SCH (09:27)
[2017-10-11] MEDS: SPIRONOLACTONE 50 MG TAB PO SCH (09:28)
[2017-10-11] MEDS: INSULIN REGULAR HUMAN 100 UNIT/ML UNIT SC SCH ×2 (09:28→13:53)
[2017-10-11] MEDS: GABAPENTIN 100 MG CAP PO SCH ×2 (09:28→20:05)
--- NOTE | 2017-10-11 14:45 | ECHO ---
[email or web address] [address] [address] Main: [phone] Fax: Transthoracic Echocardiogram Name: LOREE CROUCH MR#: [id number] Study Date: 10/11/2017 Study Time: 11:48 AM Date of : 1955 Age: 61 year(s) Height: 162.6 cm (64 in.) Weight: 114.76 kg (253 lb.) BSA: 2.16 m2 Gender: Male Examination: Echo Indication: Anasarca (previous echo 07/11/17, pacer Image Quality: Technically Difficult Contrast: Requested by: Logan Page BP: 78 mmHg/53 mmHg Heart Rate: Rhythm: Indication: Anasarca (previous echo 07/11/17, pacer Procedure Staff Laborer Shellfish Processing: Winsome Sanders RDCS Reading Physician: Kandy Caraballo MD Requesting Provider: Conclusions: Normal size left ventricle. The ejection fraction is estimated to be 45-50 %. Diastolic dysfunction is present. . LV septal motion consistent with conduction abnormality. Elevated LV filling pressure. Mildly dilated right ventricle. Normal RV function. There is a pacemaker lead noted in the right ventricle. Mild mitral valve regurgitation is present. Mild calcific aortic valve stenosis. AV max PG is 25mmHG. AV meamn PG is 14mmHG.. Moderate tricuspid regurgitation is present. The pulmonary artery pressure is mildly increased. RVSP is 45-50mmHG.. Compared with 07/12/2017 the LV apex is not as well visualized (previously reported as akinetic). RV mildly dilated. Aortic valve gradients are slightly higher but degree of is still mild. Estimated PA pressures are now higher Measurements: Chambers Valvular Assessment AV/MV Valvular Assessment TV/PV Normal Normal Normal Name Value Range Name Value Range Name Value Range Ao Ana (MM): 3.5 cm (2.2 cm-3.7 AV meanP mmHg ( - ) TR Vmax: 3.36 mm/s ( - ) cm) MEME (VTI): 1.1 cm ( - ) TR PGmax: 45 mmHg ( - ) IVSd (2D): 0.7 cm (0.6 cm-1.1 MV E Vmax: 1.37 m/s ( - ) syst. PAP: 50 mmHg ( - ) cm) MV A Vmax: 0.48 m/s ( - ) LVDd (2D): 5.4 cm (4.2 cm-5.9 MV E/A: 2.85 ( - ) cm) LVDs (2D): 4.0 cm (2.1 cm-4 cm) Patient: LOREE CROUCH Study Date: 10/11/2017 Page 1 of 2 11:48 AM LVPWd (2D): 0.9 cm (0.6 cm-1 cm) LVOTd 1.9 cm 1.9 cm mm LVEF (2D): 51 (>=54 %) EF Range: 45-50 % Continued Measurements: Chambers Valvular Assessment AV/MV Valvular Assessment TV/PV Name Value Name Value Name Value LADs: 3.4 cm MV E' Septal: 0.04 m/s CVP (est.): 5 mmHg LADs Lon.4 cm MV E/E' Septal: 31.20 LA Area: 20.5 cm2 MV E/E' Lateral: 23.80 Findings: Left Ventricle: Normal size left ventricle. The ejection fraction is estimated to be 45-50 %. Diastolic dysfunction is present. . LV septal motion consistent with conduction abnormality. Elevated LV filling pressure. Right Ventricle: Mildly dilated right ventricle. Normal RV function. There is a pacemaker lead noted in the right ventricle. Left Atrium: The left atrium is normal in size. Right Atrium: The right atrium is mildly dilated. Mitral Valve: The mitral valve is normal in appearance. Mild mitral valve regurgitation is present. Aortic Valve: Mild aortic cusp calcification is noted. Mild calcific aortic valve stenosis. AV max PG is 25mmHG. AV meamn PG is 14mmHG.. Tricuspid Valve: The tricuspid valve appears normal. Moderate tricuspid regurgitation is present. The pulmonary artery pressure is mildly increased. RVSP is 45-50mmHG.. Pulmonic Valve: Pulmonary valve not well visualized. Pericardium: No pericardial effusion. (No Signature Object) Patient: LOREE CROUCH Study Date: 10/11/2017 Page 2 of 2 11:48 AM [id number]
--- NOTE | 2017-10-11 15:49 | ASMTCMCOM ---
CM Note CM Note Notes: 10/11/2017 Case Management Note Met pt during multidisciplinary rounds this morning. Case Management d/c needs are uncertain at this time. Will rely on PT and OT recommendations for discharge plan. Case Management d/c poc: to be determined. Case Management to follow. Date Signed: 10/11/2017 03:49 PM Electronically Signed By:Yahaira Abdul RN
[2017-10-11] MEDS ORDERED: D50W 25 GM/50 ML SYR IVP PRN (16:23)
[2017-10-11] MEDS ORDERED: [UNRECOGNIZED DRUG - OTHER] SC SCH (17:30)
[2017-10-11] MEDS ORDERED: INSULIN REGULAR SC SCH (17:30)
[2017-10-11] MEDS ORDERED: INSULIN REGULAR HUMAN 150 UNIT SQ SCH (18:00)
[2017-10-11] MEDS ORDERED: INSULIN LISPRO 100 UNIT/1 ML VIAL LOW SC SCH (18:00)
[2017-10-11] MEDS: INSULIN LISPRO 100 UNIT/1 ML SC SCH (18:23)
[2017-10-11] MEDS ORDERED: INSULIN GLARGINE 100 UNITS/ML SYRINGE SC ONE (21:00)
[2017-10-11] MEDS ORDERED: INSULIN GLARGINE 100 UNITS/ML UNIT SC ONE (21:00)
[2017-10-12 04:09] LABS: PLATELET COUNT 23 10^3/uL (150-400)
[2017-10-12] MEDS ORDERED: INSULIN REGULAR HUMAN SC SCH (09:00)
[2017-10-12] MEDS: INSULIN LISPRO 100 UNIT/1 ML SC SCH ×4 (09:04→21:21)
[2017-10-12] MEDS: LACTULOSE 20 GM/30 ML UDCUP PO SCH (10:12)
[2017-10-12] MEDS: FUROSEMIDE 40 MG/4 ML VIAL IVP SCH ×2 (10:12→16:00)
[2017-10-12] MEDS: GABAPENTIN 100 MG CAP PO SCH ×2 (10:13→21:16)
[2017-10-12] MEDS: SPIRONOLACTONE 50 MG TAB PO SCH (10:13)
--- NOTE | 2017-10-12 14:52 | HOSPPROG ---
Hospitalist Progress Note Assessment/Plan: # anasarca - 20kg wt gain since July - cont lasix 40 iv bid, aldactone 100 daily - low threshold to involve renal or GI - follow daily weights, BMPs - TTE: LVEF 45%, Diastolic dysfunction # cryptogenic cirrhosis - MELD 21 (approx 20% 3 month mortality) - HE - cont lactulose - hx variceal bleed s/p banding - s/p TIPS # DM2 - on U500 - he will bring in his home insulin. But until he does, will cont to treat with Lantus. Will increase dose today given hyperglycemia # anemia - slightly lower than baseline; no evidence of rapid blood loss - transfuse 1U PRBC - May need additional units pending recheck # thrombocytopenia - slightly lower than baseline; follow daily. Transfuse PRN # CAD s/p stent - trop neg, no CP - no asa with low plts; no statin d/t cirrhosis # s/p ppm # STEFANIE - CPAP non-compliance Palliative care consult Subjective: no cp or SOB. Somewhat confused. Still with leg swelling. Objective: Vital Signs Temp Pulse Resp BP Pulse Ox 36.6 C 67 22 H 119/79 99 10/12/17 12:00 10/12/17 12:00 10/12/17 12:00 10/12/17 12:00 10/12/17 12:00 Laboratory Results 10/12/17 03:48 10/12/17 03:48 10/11/17 10/12/17 10/13/17 05:59 05:59 05:59 Intake Total 220 1550 Output Total 800 1965 851 Balance -580 -1125 -851 PT 22.0 SEC (12.0-15.0) H 10/11/17 03:20 INR 1.91 (0.83-1.16) H 10/11/17 03:20 - Physical Exam Constitutional: no apparent distress Eyes: PERRL, EOMI Ears, Nose, Mouth, Throat: moist mucous membranes, hearing normal Cardiovascular: regular rate and rhythym, edema Respiratory: no respiratory distress Gastrointestinal: normoactive bowel sounds, soft, non-tender abdomen Skin: warm Musculoskeletal: generalized weakness Neurologic: No AAOx3 Psychiatric: encephalopathic Lymph, Heme, Immunologic: No petechiae ICD10 Worksheet Patient Problems: Problems Problem Status Onset Anasarca Acute Cirrhosis Acute Altered mental status Acute Anemia Acute Ascites Acute Cellulitis Acute Congestive heart failure Acute Dyspnea Acute Edema Acute Hyperammonemia Acute Jaundice Acute Liver failure Acute Nausea & vomiting Acute Sepsis Acute Thrombocytopenia Acute
--- NOTE | 2017-10-12 15:35 | ASMTCMCOM ---
CM Note CM Note Notes: Pts case discussed in tx rounds. Therapies are recommending SNF. Palliative has been ordered. Shoshana will meet w/ pt and family tomorrow. Needs are TBD at this time. CM to follow. Plan: TBD Date Signed: 10/12/2017 03:34 PM Electronically Signed By:THANH Benites
[2017-10-12] MEDS ORDERED: INSULIN GLARGINE 100 UNITS/ML UNIT SC SCH (21:00)
[2017-10-13 04:29] LABS: PLATELET COUNT 26 10^3/uL (150-400)
[2017-10-13] MEDS: INSULIN LISPRO 100 UNIT/1 ML SC SCH ×3 (08:16→18:11)
[2017-10-13] MEDS: GABAPENTIN 100 MG CAP PO SCH ×2 (08:41→20:49)
[2017-10-13] MEDS: LACTULOSE 20 GM/30 ML UDCUP PO SCH (08:41)
[2017-10-13] MEDS: FUROSEMIDE 40 MG/4 ML VIAL IVP SCH ×2 (08:41→16:27)
[2017-10-13] MEDS: SPIRONOLACTONE 50 MG TAB PO SCH (08:41)
--- NOTE | 2017-10-13 14:26 | ASMTCMCOM ---
CM Note CM Note Notes: Pts case discussed in morning rounds. Shoshana and GERRY had a palliative w/ family and pt. CM went over therapies recommendations. Pt and family would like SNF. Pt and family chose [facility] and [facility]. Referrals made to both agencies. Pt and family are interested in having palliative to help w/ pain management after SNF. Family may be interested in having a palliative come to hospital to do an informational. CM provided family w/ list of palliative agencies. CM to follow. Plan: SNF Plan: SNF Date Signed: 10/13/2017 02:25 PM Electronically Signed By:THANH Benites
--- NOTE | 2017-10-13 15:26 | HOSPPROG ---
Hospitalist Progress Note Assessment/Plan: # abdulaziz - 20kg wt gain since July - cont lasix 40 iv bid, aldactone 100 daily - low threshold to involve renal or GI - follow daily weights, BMPs - TTE: LVEF 45%, Diastolic dysfunction # cryptogenic cirrhosis - MELD 21 (approx 20% 3 month mortality) - HE - cont lactulose - hx variceal bleed s/p banding - s/p TIPS # DM2 - -Has been not compliant on home insulin regime -Change Lantus to 25 bid -ISS -still with hyperglycemia requiring active mgmt of his glucose # anemia - slightly lower than baseline; no evidence of rapid blood loss - s/p 1 U PRBC on 10/11 - May need additional units pending recheck, none today # thrombocytopenia - slightly lower than baseline; follow daily. Transfuse PRN, none today # CAD s/p stent - trop neg, no CP - no asa with low plts; no statin d/t cirrhosis # s/p ppm # STEFANIE - CPAP non-compliance Palliative care consult pending this afternoon. Subjective: weight is decreasing. no cp or sob. no n/v Objective: Vital Signs Temp Pulse Resp BP Pulse Ox 36.3 C 71 12 126/68 H 100 10/13/17 12:00 10/13/17 12:00 10/13/17 12:00 10/13/17 12:00 10/13/17 12:00 Laboratory Results 10/13/17 04:13 10/13/17 04:13 10/12/17 10/13/17 10/14/17 05:59 05:59 05:59 Intake Total 1550 1630 500 Output Total 2675 3401 850 Balance -1125 -1771 -350 PT 22.0 SEC (12.0-15.0) H 10/11/17 03:20 INR 1.91 (0.83-1.16) H 10/11/17 03:20 - Physical Exam Constitutional: no apparent distress, appears nourished, not in pain Eyes: PERRL, EOMI Ears, Nose, Mouth, Throat: moist mucous membranes, hearing normal Cardiovascular: regular rate and rhythym, edema Respiratory: no respiratory distress, reduced air movement Gastrointestinal: ascites, distension Skin: warm Neurologic: No AAOx3 Psychiatric: interacting appropriately, not anxious, encephalopathic, No not encephalopathic, No thought process linear Lymph, Heme, Immunologic: No petechiae ICD10 Worksheet Patient Problems: Problems Problem Status Onset Anasarca Acute Cirrhosis Acute Altered mental status Acute Anemia Acute Ascites Acute Cellulitis Acute Congestive heart failure Acute Dyspnea Acute Edema Acute Hyperammonemia Acute Jaundice Acute Liver failure Acute Nausea & vomiting Acute Sepsis Acute Thrombocytopenia Acute
[2017-10-13] MEDS: INSULIN GLARGINE 100 UNITS/ML UNIT SC SCH (20:49)
[2017-10-14 04:04] LABS: PLATELET COUNT 29 10^3/uL (150-400)
[2017-10-14] MEDS: INSULIN GLARGINE 100 UNITS/ML UNIT SC SCH ×2 (09:48→20:10)
[2017-10-14] MEDS: INSULIN LISPRO 100 UNIT/1 ML SC SCH ×3 (09:48→17:50)
[2017-10-14] MEDS: FUROSEMIDE 40 MG/4 ML VIAL IVP SCH ×2 (09:49→15:01)
[2017-10-14] MEDS: SPIRONOLACTONE 50 MG TAB PO SCH (09:49)
[2017-10-14] MEDS: GABAPENTIN 100 MG CAP PO SCH ×2 (09:49→20:11)
[2017-10-14] MEDS: LACTULOSE 20 GM/30 ML UDCUP PO SCH (10:01)
[2017-10-14] MEDS ORDERED: INSULIN GLARGINE 100 UNITS/ML UNIT SC ONE (12:00)
[2017-10-14] MEDS ORDERED: INSULIN LISPRO 100 UNIT/ML SC ONE ×2 (13:45→17:45)
--- NOTE | 2017-10-14 15:36 | HOSPPROG ---
Hospitalist Progress Note Assessment/Plan: # abdulaziz - 20kg wt gain since July - cont lasix 40 iv bid, aldactone 100 daily - low threshold to involve renal or GI - follow daily weights, BMPs - TTE: LVEF 45%, Diastolic dysfunction # cryptogenic cirrhosis - MELD 21 (approx 20% 3 month mortality) - HE - cont lactulose - hx variceal bleed s/p banding - s/p TIPS # DM2 - -Has been not compliant on home insulin regime -Increase Lantus to 25 bid -ISS -still with hyperglycemia requiring active mgmt of his glucose # anemia - slightly lower than baseline; no evidence of rapid blood loss - s/p 1 U PRBC on 10/11 - May need additional units pending recheck, none today # thrombocytopenia - slightly lower than baseline; follow daily. Transfuse PRN, none today # CAD s/p stent - trop neg, no CP - no asa with low plts; no statin d/t cirrhosis # s/p ppm # STEFANIE - CPAP non-compliance Plan: -weight and volume status significantly improved. cont IV diuretics today. He is tolerating well. -Still with significant amounts of short acting insulin, will increase Lantus. cont BID dosing -Working with PT, strength is improving. -Start ADA diet Subjective: seen walking around halls. SOB is improving. Edema is improving. no cp or SOB. Objective: Vital Signs Temp Pulse Resp BP Pulse Ox 36.6 C 90 18 134/61 H 99 10/14/17 15:31 10/14/17 15:31 10/14/17 15:31 10/14/17 15:31 10/14/17 15:31 Laboratory Results 10/14/17 03:51 10/14/17 03:51 10/13/17 10/14/17 10/15/17 05:59 05:59 05:59 Intake Total 1630 1000 Output Total 3401 2500 600 Balance -1771 -1500 -600 PT 22.0 SEC (12.0-15.0) H 10/11/17 03:20 INR 1.91 (0.83-1.16) H 10/11/17 03:20 - Physical Exam Constitutional: no apparent distress Eyes: PERRL, EOMI Ears, Nose, Mouth, Throat: moist mucous membranes Cardiovascular: regular rate and rhythym, edema (2-3+) Respiratory: reduced air movement Gastrointestinal: normoactive bowel sounds, distension Skin: warm Musculoskeletal: generalized weakness Neurologic: AAOx3 Psychiatric: interacting appropriately, not anxious, not encephalopathic, thought process linear Lymph, Heme, Immunologic: No petechiae ICD10 Worksheet Patient Problems: Problems Problem Status Onset Anasarca Acute Cirrhosis Acute Altered mental status Acute Anemia Acute Ascites Acute Cellulitis Acute Congestive heart failure Acute Dyspnea Acute Edema Acute Hyperammonemia Acute Jaundice Acute Liver failure Acute Nausea & vomiting Acute Sepsis Acute Thrombocytopenia Acute
--- NOTE | 2017-10-14 16:35 | ASMTCMCOM ---
CM Note CM Note Notes: Pts case discussed in morning rounds. [facility] and [facility] has both accepted. CM spoke w/ pt and regarding acceptance. has chosen [facility]. CM informed Charley at [facility] of family's choice. CM to follow. Plan: [facility] Date Signed: 10/14/2017 04:34 PM Electronically Signed By:THANH Benites
[2017-10-15 04:39] LABS: PLATELET COUNT 32 10^3/uL (150-400)
[2017-10-15] MEDS: INSULIN GLARGINE 100 UNITS/ML UNIT SC SCH ×2 (09:06→20:08)
[2017-10-15] MEDS: GABAPENTIN 100 MG CAP PO SCH ×2 (09:06→20:08)
[2017-10-15] MEDS: SPIRONOLACTONE 50 MG TAB PO SCH (09:06)
[2017-10-15] MEDS: LACTULOSE 20 GM/30 ML UDCUP PO SCH (09:06)
[2017-10-15] MEDS: INSULIN LISPRO 100 UNIT/1 ML SC SCH ×3 (09:07→17:11)
[2017-10-15] MEDS: FUROSEMIDE 40 MG/4 ML VIAL IVP SCH ×2 (09:53→15:38)
--- NOTE | 2017-10-15 15:47 | HOSPPROG ---
Hospitalist Progress Note Assessment/Plan: 61 year-old man with cryptogenic cirrhosis is admitted with anasarca and 20 kg weight gain over the past few months. He has been receiving IV diuresis here in the hospital with some weight gain but has appeared to have stabilized. # anasarca, increasing weight gain as outpatient. Had been on 80 mg of p.o. Lasix daily and 100 mg of Aldactone. Some improvement when on IV Lasix at 40 mg IV twice daily * Transition oral Lasix at 80 mg twice daily, continue Aldactone * Follow weights and see if we can continue some diuresis on oral dosing prior to discharge to SNF * Add low-salt diet and fluid restriction * Follow renal function # cryptogenic cirrhosis MELD 21 (approx 20% 3 month mortality) * Encephalopathy, continue lactulose * History of varicocele bleeding status post banding * Intractable ascites status post TIPS # type 2 diabetes, uncontrolled. 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 Transfuse for bleeding or platelets less than 10,000 # coronary artery disease status post stent, no current symptoms * No aspirin secondary to thrombocytopenia and no statins due to cirrhosis # obstructive sleep apnea on CPAP for which he is noncompliant. I suspect this is contributing to his anasarca Subjective: Patient new to me and chart reviewed. Complains of ongoing swelling and edema but has had significant weight loss here in the hospital Objective: Vital Signs Temp Pulse Resp BP Pulse Ox 36.8 C 88 18 111/55 L 97 10/15/17 15:31 10/15/17 15:31 10/15/17 15:31 10/15/17 15:31 10/15/17 15:31 Laboratory Results 10/15/17 04:03 10/15/17 04:03 10/14/17 10/15/17 10/16/17 05:59 05:59 05:59 Intake Total 1000 2840 1480 Output Total 2500 3500 1550 Balance -1500 -660 -70 PT 22.0 SEC (12.0-15.0) H 10/11/17 03:20 INR 1.91 (0.83-1.16) H 10/11/17 03:20 - Physical Exam Constitutional: obese, uncomfortable Eyes: PERRL Ears, Nose, Mouth, Throat: dry mucous membranes Cardiovascular: regular rate and rhythym Respiratory: no respiratory distress Gastrointestinal: no palpable masses, No tenderness Skin: warm Musculoskeletal: generalized weakness Neurologic: No facial droop Psychiatric: interacting appropriately ICD10 Worksheet Patient Problems: Problems Problem Status Onset Ascites Acute Thrombocytopenia Acute Anemia Acute Cirrhosis Acute Nausea & vomiting Acute Jaundice Acute Hyperammonemia Acute Altered mental status Acute Liver failure Acute Cellulitis Acute Edema Acute Sepsis Acute Dyspnea Acute Congestive heart failure Acute Anasarca Acute
[2017-10-15] MEDS ORDERED: FUROSEMIDE 40 MG/4 ML VIAL IVP ONE (16:15)
[2017-10-16 04:38] LABS: PLATELET COUNT 37 10^3/uL (150-400)
[2017-10-16] MEDS: SPIRONOLACTONE 50 MG TAB PO SCH (09:07)
[2017-10-16] MEDS: GABAPENTIN 100 MG CAP PO SCH ×2 (09:08→20:45)
[2017-10-16] MEDS: INSULIN LISPRO 100 UNIT/1 ML SC SCH ×3 (09:08→19:17)
[2017-10-16] MEDS: INSULIN GLARGINE 100 UNITS/ML UNIT SC SCH ×2 (09:09→20:45)
[2017-10-16] MEDS: FUROSEMIDE 80 MG TAB PO SCH ×2 (09:09→17:54)
--- NOTE | 2017-10-16 12:55 | HOSPPROG ---
Hospitalist Progress Note Assessment/Plan: 61 year-old man with cryptogenic cirrhosis is admitted with anasarca and 20 kg weight gain over the past few months. He has been receiving IV diuresis here in the hospital with some weight gain but has appeared to have stabilized. # anasarca, increasing weight gain as outpatient. Had been on 80 mg of p.o. Lasix daily and 100 mg of Aldactone. Some improvement when on IV Lasix at 40 mg IV twice daily * Transition oral Lasix at 80 mg twice daily, continue Aldactone. Weight slightly improved on oral medications * Follow weights and see if we can continue some diuresis on oral dosing prior to discharge to SNF * Add low-salt diet and fluid restriction * Follow renal function. # cryptogenic cirrhosis MELD 21 (approx 20% 3 month mortality) * Encephalopathy, continue lactulose * History of varicocele bleeding status post banding * Intractable ascites status post TIPS # type 2 diabetes, uncontrolled. 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 Transfuse for bleeding or platelets less than 10,000 # coronary artery disease status post stent, no current symptoms * No aspirin secondary to thrombocytopenia and no statins due to cirrhosis # obstructive sleep apnea on CPAP for which he is noncompliant. I suspect this is contributing to his anasarca Subjective: Patient seen in rounds. Denies any worsening swelling overnight. No chest pain or shortness of breath bilateral edema stable Objective: Vital Signs Temp Pulse Resp BP Pulse Ox 36.8 C 66 18 111/65 94 10/16/17 12:00 10/16/17 12:00 10/16/17 12:00 10/16/17 12:00 10/16/17 12:00 Laboratory Results 10/16/17 04:17 10/16/17 04:17 10/15/17 10/16/17 10/17/17 05:59 05:59 05:59 Intake Total 2840 1780 Output Total 3500 3153 Balance -660 -1373 PT 22.0 SEC (12.0-15.0) H 10/11/17 03:20 INR 1.91 (0.83-1.16) H 10/11/17 03:20 - Physical Exam Constitutional: chronically ill appearing Eyes: PERRL, EOMI, icteric sclera Ears, Nose, Mouth, Throat: moist mucous membranes Cardiovascular: regular rate and rhythym Respiratory: no respiratory distress, reduced air movement Gastrointestinal: normoactive bowel sounds, soft, non-tender abdomen, distension Genitourinary: other (Swollen scrotum) Skin: No normal color (Jaundice) Musculoskeletal: generalized weakness Psychiatric: interacting appropriately ICD10 Worksheet Patient Problems: Problems Problem Status Onset Ascites Acute Thrombocytopenia Acute Anemia Acute Cirrhosis Acute Nausea & vomiting Acute Jaundice Acute Hyperammonemia Acute Altered mental status Acute Liver failure Acute Cellulitis Acute Edema Acute Sepsis Acute Dyspnea Acute Congestive heart failure Acute Anasarca Acute
[2017-10-16] MEDS: LACTULOSE 20 GM/30 ML UDCUP PO SCH (13:28)
[2017-10-17] MEDS: FUROSEMIDE 80 MG TAB PO SCH (08:46)
[2017-10-17] MEDS: INSULIN GLARGINE 100 UNITS/ML UNIT SC SCH (08:46)
[2017-10-17] MEDS: GABAPENTIN 100 MG CAP PO SCH (08:46)
[2017-10-17] MEDS: SPIRONOLACTONE 50 MG TAB PO SCH (08:46)
[2017-10-17] MEDS: LACTULOSE 20 GM/30 ML UDCUP PO SCH (08:46)
[2017-10-17] MEDS: INSULIN LISPRO 100 UNIT/1 ML SC SCH ×2 (08:54→12:36)
--- NOTE | 2017-10-17 10:54 | HOSPPROG ---
Hospitalist Progress Note Assessment/Plan: 61 year-old man with cryptogenic cirrhosis is admitted with anasarca and 20 kg weight gain over the past few months. He has been receiving IV diuresis here in the hospital with some weight gain but has appeared to have stabilized. # anasarca, increasing weight gain as outpatient. Had been on 80 mg of p.o. Lasix daily and 100 mg of Aldactone. Some improvement when on IV Lasix at 40 mg IV twice daily * Transition oral Lasix at 80 mg twice daily, continue Aldactone. Weight slightly improved on oral medications * Follow weights and see if we can continue some diuresis on oral dosing prior to discharge to SNF * Will need close follow-up with blood work and decrease diuresis with bump in renal function * Add low-salt diet and fluid restriction * Follow renal function. # cryptogenic cirrhosis MELD 21 (approx 20% 3 month mortality) * Encephalopathy, continue lactulose * History of varicocele bleeding status post banding * Intractable ascites status post TIPS # type 2 diabetes, uncontrolled. 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 Transfuse for bleeding or platelets less than 10,000 # coronary artery disease status post stent, no current symptoms * No aspirin secondary to thrombocytopenia and no statins due to cirrhosis # obstructive sleep apnea on CPAP for which he is noncompliant. I suspect this is contributing to his anasarca Subjective: No new complaints today. Objective: Vital Signs Temp Pulse Resp BP Pulse Ox 36.7 C 84 12 111/55 L 96 10/17/17 08:00 10/17/17 08:00 10/17/17 08:00 10/17/17 08:00 10/17/17 08:00 Laboratory Results 10/16/17 04:17 10/17/17 08:35 10/16/17 10/17/17 10/18/17 05:59 05:59 05:59 Intake Total 1780 1950 Output Total 3153 1775 Balance -1373 175 PT 22.0 SEC (12.0-15.0) H 10/11/17 03:20 INR 1.91 (0.83-1.16) H 04/03/18 03:20 - Physical Exam Constitutional: chronically ill appearing Eyes: icteric sclera Cardiovascular: regular rate and rhythym Respiratory: no respiratory distress ICD10 Worksheet Patient Problems: Problems Problem Status Onset Ascites Acute Thrombocytopenia Acute Anemia Acute Cirrhosis Acute Nausea & vomiting Acute Jaundice Acute Hyperammonemia Acute Altered mental status Acute Liver failure Acute Cellulitis Acute Edema Acute Sepsis Acute Dyspnea Acute Congestive heart failure Acute Anasarca Acute
--- NOTE | 2017-10-17 13:41 | PDIAF ---
- Diagnosis Diagnosis: cirrhosis, anasarca Code Status: Full Code - Medication Management Discharge Medications: Medications to Continue on Transfer Lactulose 30 gm PO DAILY 06/03/17 [Last Taken 10/09/17] Furosemide [Lasix 80 MG (*)] 80 mg PO DAILY 07/11/17 [Last Taken 10/09/17] Gabapentin [Neurontin 100 MG (*)] 100 mg PO BID 07/11/17 [Last Taken 10/09/17] Insulin Regular, Human [Humulin R U-500] 150 unit SQ DAILY@18 07/11/17 [Last Taken 10/09/17] Insulin Regular, Human [Humulin R U-500] 250 units SC DAILY 07/11/17 [Last Taken 10/09/17] Spironolactone [Aldactone] 100 mg PO DAILY #0 07/12/17 [Last Taken 10/09/17] Simvastatin 40 mg PO DAILY 10/10/17 [Last Taken 10/09/17] Insulin Glargine [Lantus Syringe] 40 units SC BID unit 10/17/17 [Last Taken Unknown] Discharge Medications: Refer to the Discharge Home Medication list for PRN reason. - Orders Services needed: Registered Nurse, Master Medical Insurance Biller, Physical Therapy, Occupational Therapy Isolation Type: None Diet Recommendation: sodium restricted, fluid restriction (use comment for amount) (1999) Diet Texture: Regular Texture Diet - Labs/Radiology BMP Date: 10/19/17 (twice a week to monitor lytes.) - Follow Up Care Current Providers and Referrals: NONE *PRIMARY CARE P,. [Primary Care Provider] - As per Instructions (follow up with Dr. Matthew in GI of the [facility] in 1-2 weeks)
--- NOTE | 2017-10-17 13:45 | PDIAF ---
- Diagnosis Diagnosis: cirrhosis, anasarca Code Status: Full Code - Medication Management Discharge Medications: Medications to Continue on Transfer Lactulose 30 gm PO DAILY 06/03/17 [Last Taken 10/09/17] Furosemide [Lasix 80 MG (*)] 80 mg PO DAILY 07/11/17 [Last Taken 10/09/17] Gabapentin [Neurontin 100 MG (*)] 100 mg PO BID 07/11/17 [Last Taken 10/09/17] Spironolactone [Aldactone] 100 mg PO DAILY #0 07/12/17 [Last Taken 10/09/17] Simvastatin 40 mg PO DAILY 10/10/17 [Last Taken 10/09/17] Insulin Glargine [Lantus] 40 unit SC HS #1 ml 10/17/17 [Last Taken Unknown] Insulin Glargine [Lantus] 55 unit SC DAILY #1 ml 10/17/17 [Last Taken Unknown] Insulin Lispro [HumaLOG LISPRO] 6 - 30 unit SC TIDMEAL unit 10/17/17 [Last Taken Unknown] Discharge Medications: Refer to the Discharge Home Medication list for PRN reason. - Orders Services needed: Registered Nurse, Master Radio Communications Mechanician, Physical Therapy, Occupational Therapy Isolation Type: None Diet Recommendation: sodium restricted, ADA 2000 consistent carb, fluid restriction (use comment for amount) (1999) Diet Texture: Regular Texture Diet Weigh Patient: daily Additional: Pt on lantus, usually on high dose U500 at home, will need to transition at discharge. - Labs/Radiology BMP Date: 10/19/17 (twice a week to monitor lytes.) - Follow Up Care Current Providers and Referrals: NONE *PRIMARY CARE P,. [Primary Care Provider] - As per Instructions (follow up with Dr. Matthew in GI of the [facility] in 1-2 weeks)
--- NOTE | 2017-10-17 14:01 | GDS ---
[f rep st] DISCHARGE SUMMARY DIAGNOSES: 1. Anasarca. 2. Cryptogenic cirrhosis, Model for End-Stage Liver Disease 21, complicated with encephalopathy, int ractable ascites, status post transjugular intrahepatic portosystemic shunt. 3. Type 2 diabetes, uncontrolled. 4. Anemia due to bone marrow suppression. 5. Thrombocytopenia secondary to bone marrow suppression. 6. Coronary artery disease, status post stent. 7. Obstructive sleep apnea, on continuous positive airway pressure, with which he is noncompliant. PROCEDURES DONE: Abdominal ultrasound, notable for patent TIPS. HOSPITAL COURSE: The patient is a 61-year-old with cryptogenic cirrhosis, followed by Dr. Lawler. He comes in with significant weight gain and anasarca. He was treated with IV diuresis and Aldactone and decreased his weight throughout his hospitalization. He went from an admitting weight of 115 kg down to 94 kg at the time of discharge. He continues to have significant fluid overload. His cirrh osis is complicated by encephalopathy, intractable ascites; he is status post TIPS procedure. He is also deconditioned. In the hospital, he had been getting IV Lasix. This was transitioned to oral La six at 80 mg twice daily with Aldactone 100 mg daily for 2 days prior to discharge, and he continued to drop about 6 kg. At discharge, he will be decreased down to Lasix 80 mg daily with Aldactone 100 mg daily, with close followup of his renal function and electrolytes. Currently, despite the weight loss, his creatinine has remained stable at 0.9. However, if he gains weight, would increase the Las ix back up to 80 b.i.d. If he bumps his creatinine, would need to adjust the diuretics down. CONDITION ON DISCHARGE: Fair. He is mildly encephalopathic. He continues to have edema and anasarc a, but his weight is improved. DISCHARGE MEDICATIONS: Please see discharge medication form. FOLLOWUP: He will be discharged to senior care for ongoing rehab. Main issues in rehab include his anasarca and diuretic titration, end-stage cryptogenic cirrhosis, and poorly controlled diabetes on massive insulin doses. FOLLOWUP INSTRUCTIONS: He will be discharged to [facility] senior care. He needs a followup with Dr. Lawler within 1-2 weeks post hospitalization; that is his primary liver doctor. Total time spent with patient on day of discharge and coordination of care is 40 minutes. Copy requested to: Dr. Lawler /[id number]/[id number]
--- NOTE | 2017-10-17 16:13 | ASDISCHSUM ---
Discharge Information Plan Status:SNF Medically Cleared to Leave:10/17/2017 Discharge Date:10/17/2017 04:05 PM D/C Disposition: ADT D/C Disposition:Nursing Home Facility Projected Discharge Date:10/17/2017 11:00 AM Transportation at D/C: Discharge Delay Reason: Follow-Up Date:10/17/2017 11:00 AM Discharge Slot: Final Diagnosis: Placement Information Referral Type:*Mcc/SNF Referral ID:[id number] Provider Name:Sharon Rubio [facility][note 3] Address 1:[address] Phone Number: Address 2: Fax Number: [facility]:[place] Selection Factors: State:[place] Referral Type:Palliative Care Referral ID:-[id number] Provider Name:[facility] Address 1:[address] Phone Number: Address 2: Fax Number: [facility]:[place] Selection Factors: State:[place] Patient Contact Information Contact Name:ANDREA Relationship:Life Partner Address:[address] City:[place] [facility] Phone: State/Zip Code:[place] [address] Email: Financial Information Financial Class:Medicare Advantage Plans Primary Plan Desc:[employer] [facility] [place] Primary Plan Number:[id number] Secondary Plan Desc: Secondary Plan Number: Assessment Information LACE LACE Length of stay for Answers: 4-6 days current admission Acuity / Level of Answers: Yes Care: Did the patient have an inpatient admission? Comorbidities - select Answers: Coronary Artery Disease all that apply Diabetes (uncontrolled or controlled) Other Notes: Cryptogenic cirrhosis, STEFANIE, Traumat ic brain injury # of Emergency department Answers: 3-4 visits in the last 6 months Score: 14 Date Signed: 10/17/2017 01:54 PM Electronically Signed By:Yahaira Abdul RN [facility] Progress Note CM Note CM Note Notes: 10/11/2017 Case Management Note Met pt during multidisciplinary rounds this morning. Case Management d/c needs are uncertain at this time. Will rely on PT and OT recommendations for discharge plan. Case Management d/c poc: to be determined. Case Management to follow. Date Signed: 10/11/2017 03:49 PM Electronically Signed By:Yahaira Abdul RN [facility] GERR[facility] Progress Note CM Note CM Note Notes: Pts case discussed in tx rounds. Therapies are recommending SNF. Palliative has been ordered. Shoshana will meet w/ pt and family tomorrow. Needs are TBD at this time. CM to follow. Plan: TBD Date Signed: 10/12/2017 03:34 PM Electronically Signed By:THANH Benites [facility] Progress Note CM Note GERRY Note Notes: Pts case discussed in morning rounds. Shoshana and GERRY had a palliative w/ family and pt. CM went over therapies recommendations. Pt and family would like SNF. Pt and family chose [facility] and [facility]. Referrals made to both agencies. Pt and family are interested in having palliative to help w/ pain management after SNF. Family may be interested in having a palliative come to hospital to do an informational. CM provided family w/ list of palliative agencies. CM to follow. Plan: SNF Plan: SNF Date Signed: 10/13/2017 02:25 PM Electronically Signed By:THANH Benites [facility] Progress Note CM Note CM Note Notes: Pts case discussed in morning rounds. [facility] and [facility] has both accepted. CM spoke w/ pt and regarding acceptance. has chosen [facility]. CM informed Ciara at [facility] of family's choice. CM to follow. Plan: [facility] Date Signed: 10/14/2017 04:34 PM Electronically Signed By:THANH Benites Case Management Discharge Plan Note Case Management Discharge Discharge Order Complete? Answers: Yes Patient to Obtain Answers: Other Notes: [facility] Medications Transportation Arranged Answers: Other Notes: [facility] transport arranged by [facility] Faxed Final Orders Answers: Yes Agency/Facility Transfer Answers: Yes Report Printed & Faxed to Receiving Agency Discharge Comments Notes: 10/17/2017 Case Management Note Faxed final orders to [facility] and [facility] for Palliative. Devon at [facility] arranged transportation with [id number] w/c product picker by [facility]. JEN to call report. Date Signed: 10/17/2017 04:13 PM Electronically Signed By:Yahaira Abdul RN Intervention Information Intervention Type:*IM-Signed Date of Service:10/17/2017 12:06 PM Patient Type:Inpatient Staff Member:JEN Abdul, Yahaira Hours: Discipline: Severity: Comment:
[2017-10-17 16:29] VITALS: BP 102/56
[2017-10-17] MEDS ORDERED: INSULIN GLARGINE 100 UNITS/ML UNIT SC SCH (21:00)
== END 2017-10-17 16:05 | DRG 432 ==
LOC: F2W 18:49
PROVIDERS: ADMIT Internal Medicine; ATTEND Internal Medicine
PROC: 30233N1 Transfusion of Nonautologous Red Blood Cells into Peripheral Vein, Percutaneous Approach (ICD-10-PCS; principal; 2017-10-11)
DX: K74.69 Other cirrhosis of liver (principal); G93.40 Encephalopathy, unspecified; R18.8 Other ascites; K72.90 Hepatic failure, unspecified without coma; E11.65 Type 2 diabetes mellitus with hyperglycemia; D64.9 Anemia, unspecified; D69.59 Other secondary thrombocytopenia; I25.10 Atherosclerotic heart disease of native coronary artery without angina pectoris; G47.33 Obstructive sleep apnea (adult) (pediatric); Z95.5 Presence of coronary angioplasty implant and graft; Z87.891 Personal history of nicotine dependence; Z95.0 Presence of cardiac pacemaker; Z91.14 Patient's other noncompliance with medication regimen; Z79.4 Long term (current) use of insulin
CPT/HCPCS: 97116-GP; 97161-GP; 97166-GO; 97530-GP; 97535-GO; G8978-GP-CJ; G8979-GP-CI; G8987-GO-CL; G8988-GO-CI; J1815; J1940; P9016

== ENCOUNTER 2017-12-22 10:50 | Inpatient (IN) | payer OTHER ==
--- NOTE | 2017-12-22 12:00 | CPEKG ---
Heart Rate: 68 RR Interval: 882 P-R Interval: 184 QRSD Interval: 120 QT Interval: 444 QTC Interval: 473 P [place]: -47 QRS [place]: -59 T Wave [place]: 102 EKG Severity - ABNORMAL ECG - EKG Impression: SINUS OR ECTOPIC ATRIAL RHYTHM EKG Impression: INCOMPLETE RBBB AND LAFB Electronically Signed By: Terrance Wilkinson 22-Dec-2017 15:14:25
[2017-12-22 12:31] LABS: INR 1.87 (0.83-1.16); PROTIME(PATIENT) 21.6 SEC (12.0-15.0)
--- NOTE | 2017-12-22 12:46 | EDPHY ---
H & P Time Seen by Provider: 12/22/17 11:47 HPI/ROS: HPI Massive fluid overload. 62-year-old male from the office of [facility] the [facility], Dr. Matthew. Complaint of, "massive fluid overload", the patient has a history of advanced cirrhosis as well as congestive heart failure. He has been taking 80 mg of oral Lasix daily as well as 100 mg of spironolactone daily. He was admitted to our hospital for this problem from October 10 through October 17. He was then transferred to a snf facility. He has been home for about an month and his and him state he has been gradually worsening. They report that over the last couple of weeks his legs stomach area and trunk become much more swollen and he has become progressively more short of breath. He was seen by his lunchroom attendant Dr. Matthew and sent to the emergency department for evaluation and admission. I spoke with Dr. Dent personally. ROS: Constitutional: No fever, no chills. No weakness. Eyes: No discharge. No changes in vision. ENT: No sore throat. No nasal congestion or rhinorrhea. Respiratory: No cough. As above. Cardiac: No chest pain, no palpitations. Gastrointestinal: No abdominal pain, no vomiting, no diarrhea. Genitourinary: No hematuria. No dysuria or increased frequency with urination. Musculoskeletal: No back pain. No neck pain. As above. Skin: No rashes. Neurological: No headache. No focal weakness or altered sensation. Past medical history: Coronary artery disease with multiple stents, insulin- dependent diabetes, pacemaker, cirrhosis, esophageal varices, hypertension, hyperlipidemia, traumatic brain injury, seizure, CVA. Social history: Here with his . Nonsmoker. No alcohol. Physical Exam: General Appearance: Alert, he is not in distress. Morbidly obese. This patient is responding to questions appropriately and in full sentences. Eyes: Pupils equal and round no pallor or injection. No lid edema, erythema or injection. ENT, Mouth: Mucous membranes are moist. The pharyngeal tissues are unremarkable. No edema or swelling. No asymmetry suggestive of abscess. No erythema or exudates. Respiratory: There are no retractions, lungs are clear to auscultation anteriorly with good air movement bilaterally. Cardiovascular: Regular rate and rhythm. Heart sounds are distant. No murmur appreciated. Gastrointestinal: Obese habitus. Very large abdomen Abdomen is soft and nontender, fluid wave from ascites appreciated, no masses, bowel sounds present. No focal tenderness at McBurney's point. No Wilson sign. Neurological: Motor sensory function is grossly intact. Cranial nerves are normal. Skin: Warm and dry, no rashes. Musculoskeletal: Neck is supple and nontender. Extremities are symmetrical. Marked extremity edema 3+ bilaterally. All joints range without pain or impingement. Psychiatric: No agitation. No depression. Database: EKG: EKG time is 11:57 a.m.; EKG shows a narrow complex normal sinus rhythm with a ventricular rate of 68. Underlying incomplete right bundle branch block and left anterior fascicular block. The IA, QRS, QT intervals are within normal limits. There are no ST-T wave changes indicative of ischemic or injury pattern. No evidence of right heart strain. No significant change from previous 10/10/2017. Interpreted by me. Imaging: Chest x-ray AP portable; large heart, CHF, probable pleural effusion on the right. No evidence of pneumothorax. No other acute cardiopulmonary disease process noted. Interpreted by me. Procedures: Emergency department course: Vital signs reviewed and are normal. IV placed. Patient placed on a alarm security or surveillance monitor. EKG obtained and reviewed by myself. H&H of 7.8 and 25. This is the patient's baseline. Patient given 40 mg of IV Lasix. I discussed the results of his diagnostic workup. I discussed admission. He endorses. 1:00 p.m., spoke with hospitalist. They are familiar with this patient. Emergency department presentation and workup discussed in detail. Patient accepted for admission to telemetry under their care. He was admitted in stable condition. Differential Diagnosis: The differential diagnosis on this patient includes but is not limited to congestive heart failure, advanced cirrhosis, anemia of chronic disease. This represents a partial list of diagnoses considered. These considerations are based on history, physical exam, past history, reassessment and diagnostic testing. Smoking Status: Former smoker Constitutional: Initial Vital Signs Temperature (C) 36.3 C 12/22/17 11:02 Heart Rate 77 12/22/17 11:02 Respiratory Rate 18 12/22/17 11:02 Blood Pressure 137/66 H 12/22/17 11:02 O2 Sat (%) 98 12/22/17 11:02 O2 Delivery Mode Room Air Allergies/Adverse Reactions: No Known Allergies Allergy (Verified 12/22/17 11:01) Home Medications: Medication Instructions Recorded Lactulose 30 gm PO DAILY 06/03/17 Furosemide [Lasix 80 MG (*)] 80 mg PO DAILY 07/11/17 Gabapentin [Neurontin 100 MG (*)] 100 mg PO BID 07/11/17 Spironolactone [Aldactone] 100 mg PO DAILY #0 07/12/17 Simvastatin 40 mg PO DAILY 10/10/17 Insulin Glargine [Lantus] 40 unit SC HS #1 ml 10/17/17 Insulin Glargine [Lantus] 55 unit SC DAILY #1 ml 10/17/17 Insulin Lispro [HumaLOG LISPRO] 6 - 30 unit SC TIDMEAL unit 10/17/17 Medical Decision Making - Diagnostics Imaging Results: Imaging Impressions Chest X-Ray 12/22/17 11:48 Impression: Suspect recurrent CHF. - Data Points Laboratory Results: Laboratory Results 12/22/17 12:10 12/22/17 12:10 12/22/17 12/22/17 12/22/17 12:13 12:10 12:10 WBC RBC Hgb Hct MCV MCH MCHC RDW Plt Count MPV Neut % (Auto) Lymph % (Auto) [place] % (Auto) Eos % (Auto) Baso % (Auto) Nucleat RBC Rel Count Absolute Neuts (auto) Absolute Lymphs (auto) Absolute Monos (auto) Absolute Eos (auto) Absolute Basos (auto) Absolute Nucleated RBC Immature Gran % Immature Gran # Platelet Estimate Polychromasia Microcytic Cells Oval Macrocytes PT 21.6 SEC H SEC (12.0-15.0) INR 1.87 H (0.83-1.16) APTT 38.4 SEC H SEC (23.0-38.0) Sodium 137 mEq/L mEq/L (135-145) Potassium 4.6 mEq/L mEq/L (3.3-5.0) Chloride 107 mEq/L mEq/L (97-110) Carbon Dioxide 19 mEq/l L mEq/l (22-31) Anion Gap 11 mEq/L mEq/L (8-16) BUN 31 mg/dL H mg/dL (7-23) Creatinine 1.1 mg/dL mg/dL (0.7-1.3) Estimated GFR > 60 Glucose 225 mg/dL H mg/dL (70-100) Calcium 8.2 mg/dL L mg/dL (8.5-10.4) Total Bilirubin 4.7 mg/dL H mg/dL (0.1-1.4) Conjugated Bilirubin 1.6 mg/dL H mg/dL (0.0-0.5) Unconjugated Bilirubin 3.1 mg/dL H mg/dL (0.0-1.1) AST 46 IU/L IU/L (17-59) ALT 40 IU/L IU/L (21-72) Alkaline Phosphatase 107 IU/L IU/L (38-126) POC Troponin I 0.02 ng/mL ng/mL (0.00-0.08) NT-Pro-B Natriuret Pep 1250 pg/mL H pg/mL (0-125) Total Protein 8.0 g/dL g/dL (6.3-8.2) Albumin 2.8 g/dL L g/dL (3.5-5.0) 12/22/17 12:10 WBC 3.88 10^3/uL 10^3/uL (3.80-9.50) RBC 2.40 10^6/uL L 10^6/uL (4.40-6.38) Hgb 7.8 g/dL L g/dL (13.7-17.5) Hct 25.7 % L % (40.0-51.0) MCV 107.1 fL H fL (81.5-99.8) MCH 32.5 pg pg (27.9-34.1) MCHC 30.4 g/dL L g/dL (32.4-36.7) RDW 23.1 % H % (11.5-15.2) Plt Count 45 10^3/uL L 10^3/uL (150-400) MPV 12.0 fL H fL (8.7-11.7) Neut % (Auto) 69.3 % % (39.3-74.2) Lymph % (Auto) 16.5 % % (15.0-45.0) [place] % (Auto) 9.8 % % (4.5-13.0) Eos % (Auto) 3.1 % % (0.6-7.6) Baso % (Auto) 0.5 % % (0.3-1.7) Nucleat RBC Rel Count 1.3 % H % (0.0-0.2) Absolute Neuts (auto) 2.69 10^3/uL 10^3/uL (1.70-6.50) Absolute Lymphs (auto) 0.64 10^3/uL L 10^3/uL (1.00-3.00) Absolute Monos (auto) 0.38 10^3/uL 10^3/uL (0.30-0.80) Absolute Eos (auto) 0.12 10^3/uL 10^3/uL (0.03-0.40) Absolute Basos (auto) 0.02 10^3/uL 10^3/uL (0.02-0.10) Absolute Nucleated RBC 0.05 10^3/uL H 10^3/uL (0-0.01) Immature Gran % 0.8 % % (0.0-1.1) Immature Gran # 0.03 10^3/uL 10^3/uL (0.00-0.10) Platelet Estimate DECREASED L (ADEQ) Polychromasia 1+ H Microcytic Cells 1+ H Oval Macrocytes 2+ H PT INR APTT Sodium Potassium Chloride Carbon Dioxide Anion Gap BUN Creatinine Estimated GFR Glucose Calcium Total Bilirubin Conjugated Bilirubin Unconjugated Bilirubin AST ALT Alkaline Phosphatase POC Troponin I NT-Pro-B Natriuret Pep Total Protein Albumin Point of Care Test Results: Chemistry 12/22/17 12:13 POC Troponin I 0.02 ng/mL ng/mL (0.00-0.08) Departure - Departure Disposition: [facility] Inpatient Acute Clinical Impression: Anemia, CHF (congestive heart failure), Fluid overload, Renal insufficiency, Cirrhosis Referrals: NONE *PRIMARY CARE P,. [Primary Care Provider] - As per Instructions
[2017-12-22] MEDS ORDERED: FUROSEMIDE 40 MG/4 ML VIAL IVP ONE ×2 (12:51→16:28)
[2017-12-22 12:57] LABS: PLATELET COUNT 45 10^3/uL (150-400)
--- NOTE | 2017-12-22 13:22 | ASMTLACE ---
DEIDREE Acuity / Level of Answers: Yes Care: Did the patient have an inpatient admission? Comorbidities - select Answers: Cerebrovascular disease all that apply (CVA, TIA, aneurysms, vasc ular dementia) Congestive heart failure Diabetes (uncontrolled or controlled) Moderate or severe liver or renal disease # of Emergency department Answers: 3-4 visits in the last 6 months Score: 14 Date Signed: 12/22/2017 01:20 PM Electronically Signed By:Liberty Suarez RN
[2017-12-22] MEDS ORDERED: D50W 25 GM/50 ML SYR IVP PRN (16:10)
[2017-12-22] MEDS ORDERED: ONDANSETRON DISINTEGRATING 4 MG TAB PO PRN (16:13)
[2017-12-22] MEDS ORDERED: ONDANSETRON 4 MG/2 ML VIAL IVP PRN (16:13)
[2017-12-22] MEDS ORDERED: ACETAMINOPHEN 325 MG TAB PO PRN (16:13)
[2017-12-22] MEDS ORDERED: FUROSEMIDE 20 MG/2 ML VIAL IVP ONE (16:28)
--- NOTE | 2017-12-22 16:39 | PDGENHP ---
History and Physical - Chief Complaint weight gain - History of Present Illness 62-year-old male from the office of [facility]ology of the [facility], Dr. Matthew. Complaint of, "massive fluid overload", the patient has a history of advanced cirrhosis as well as congestive heart failure. He has been taking 80 mg of oral Lasix daily as well as 100 mg of spironolactone daily. He was admitted to our hospital for this problem from October 10 through October 17. [facility] He has been home for about an month and his and him state he has been gradually worsening. They report that over the last couple of weeks his legs stomach area and trunk become much more swollen and he has become progressively more short of breath. He was seen by his medical geneticist Dr. Matthew and sent to the emergency department for evaluation and admission. He was given Lasix 40mg x 1 in the E.D He is on RA He denies fever, cp, palpitations. He denies urinary sx's. He does have CHOUDHURY Past medical history: Coronary artery disease with multiple stents, insulin- dependent diabetes, pacemaker, cirrhosis, esophageal varices, hypertension, hyperlipidemia, traumatic brain injury, seizure, CVA. Social history: Here with his . Nonsmoker. No alcohol. FMHx: non contributory EKG time is 11:57 a.m.; EKG shows a narrow complex normal sinus rhythm with a ventricular rate of 68. Underlying incomplete right bundle branch block and left anterior fascicular block. The CT, QRS, QT intervals are within normal limits. There are no ST-T wave changes indicative of ischemic or injury pattern. No evidence of right heart strain. No significant change from previous 10/10/2017. Imaging: Chest x-ray AP portable; large heart, CHF, probable pleural effusion on the right. No evidence of pneumothorax. No other acute cardiopulmonary disease process noted. Labs: normal Cr. BNP 1250. INR 1.87, Hgb 7.8, Platelets 45 TTE on 10/11: LVEF 45%, Diastolic Dysfunction, RVSp 45% History Information - Allergies/Home Medication List Allergies/Adverse Reactions: No Known Allergies Allergy (Verified 12/22/17 11:01) Home Medications: Lactulose 30 ml PO DAILY 06/03/17 [Last Taken 12/22/17] Furosemide [Lasix 80 MG (*)] 80 mg PO DAILY 07/11/17 [Last Taken 12/22/17] Escitalopram Oxalate [Lexapro] 20 mg PO DAILY 12/22/17 [Last Taken 12/21/17] Insulin Regular, Human [Humulin R U-500 Kwikpen] 150 unit SQ DAILY18 12/22/17 [ Last Taken 12/21/17] Insulin Regular, Human [Humulin R U-500 Kwikpen] 250 unit SQ DAILY 12/22/17 [ Last Taken 12/21/17] Spironolactone [Aldactone] 200 mg PO DAILY 12/22/17 [Last Taken 12/21/17] I have personally reviewed and updated: medical history, social history Past Medical History: 1. Cryptogenic cirrhosis. 2. coronary artery disease status post PCI with 2 stents. 3. Diabetes mellitus. 4. Hypertension. 5. Hyperlipidemia. 6. esophageal variceal bleeding status post banding - Surgical History Additional surgical history: PCI with 2 stents. Pacemaker placement. Multiple paracentesis procedures - Family History Additional family history: No Recent sick family contacts - Social History Smoking Status: Former smoker Additional social history: Normally independent in his ADLs Review of Systems Review of Systems: ROS: 10pt was reviewed & negative except for what was stated in HPI & below Physical Exam Physical Exam: Temp Pulse Resp BP Pulse Ox 36.6 C 78 16 131/74 H 99 12/22/17 15:15 12/22/17 15:15 12/22/17 15:15 12/22/17 15:15 12/22/17 15:15 Constitutional: no apparent distress, not in pain Eyes: PERRL, EOMI Ears, Nose, Mouth, Throat: moist mucous membranes, hearing normal Cardiovascular: regular rate and rhythym, edema Respiratory: no respiratory distress, reduced air movement Gastrointestinal: ascites, distension, No guarding, No rebound Skin: warm Musculoskeletal: generalized weakness Neurologic: AAOx3 Psychiatric: interacting appropriately, not anxious, not encephalopathic Lymph, Heme, Immunologic: No petechiae Lab Data & Imaging Review 12/22/17 12:10 12/22/17 12:10 WBC 3.88 10^3/uL (3.80-9.50) 12/22/17 12:10 RBC 2.40 10^6/uL (4.40-6.38) L 12/22/17 12:10 Hgb 7.8 g/dL (13.7-17.5) L 12/22/17 12:10 Hct 25.7 % (40.0-51.0) L 12/22/17 12:10 MCV 107.1 fL (81.5-99.8) H 12/22/17 12:10 MCH 32.5 pg (27.9-34.1) 12/22/17 12:10 MCHC 30.4 g/dL (32.4-36.7) L 12/22/17 12:10 RDW 23.1 % (11.5-15.2) H 12/22/17 12:10 Plt Count 45 10^3/uL (150-400) L 12/22/17 12:10 MPV 12.0 fL (8.7-11.7) H 12/22/17 12:10 Neut % (Auto) 69.3 % (39.3-74.2) 12/22/17 12:10 Lymph % (Auto) 16.5 % (15.0-45.0) 12/22/17 12:10 [place] % (Auto) 9.8 % (4.5-13.0) 12/22/17 12:10 Eos % (Auto) 3.1 % (0.6-7.6) 12/22/17 12:10 Baso % (Auto) 0.5 % (0.3-1.7) 12/22/17 12:10 Nucleat RBC Rel Count 1.3 % (0.0-0.2) H 12/22/17 12:10 Absolute Neuts (auto) 2.69 10^3/uL (1.70-6.50) 12/22/17 12:10 Absolute Lymphs (auto) 0.64 10^3/uL (1.00-3.00) L 12/22/17 12:10 Absolute Monos (auto) 0.38 10^3/uL (0.30-0.80) 12/22/17 12:10 Absolute Eos (auto) 0.12 10^3/uL (0.03-0.40) 12/22/17 12:10 Absolute Basos (auto) 0.02 10^3/uL (0.02-0.10) 12/22/17 12:10 Absolute Nucleated RBC 0.05 10^3/uL (0-0.01) H 12/22/17 12:10 Immature Gran % 0.8 % (0.0-1.1) 12/22/17 12:10 Immature Gran # 0.03 10^3/uL (0.00-0.10) 12/22/17 12:10 Platelet Estimate DECREASED (ADEQ) L 12/22/17 12:10 Polychromasia 1+ H 12/22/17 12:10 Microcytic Cells 1+ H 12/22/17 12:10 Oval Macrocytes 2+ H 12/22/17 12:10 PT 21.6 SEC (12.0-15.0) H 12/22/17 12:10 INR 1.87 (0.83-1.16) H 12/22/17 12:10 APTT 38.4 SEC (23.0-38.0) H 12/22/17 12:10 Sodium 137 mEq/L (135-145) 12/22/17 12:10 Potassium 4.6 mEq/L (3.3-5.0) 12/22/17 12:10 Chloride 107 mEq/L (97-110) 12/22/17 12:10 Carbon Dioxide 19 mEq/l (22-31) L 12/22/17 12:10 Anion Gap 11 mEq/L (8-16) 12/22/17 12:10 BUN 31 mg/dL (7-23) H 12/22/17 12:10 Creatinine 1.1 mg/dL (0.7-1.3) 12/22/17 12:10 Estimated GFR > 60 12/22/17 12:10 Glucose 225 mg/dL (70-100) H 12/22/17 12:10 Calcium 8.2 mg/dL (8.5-10.4) L 12/22/17 12:10 Total Bilirubin 4.7 mg/dL (0.1-1.4) H 12/22/17 12:10 Conjugated Bilirubin 1.6 mg/dL (0.0-0.5) H 12/22/17 12:10 Unconjugated Bilirubin 3.1 mg/dL (0.0-1.1) H 12/22/17 12:10 AST 46 IU/L (17-59) 12/22/17 12:10 ALT 40 IU/L (21-72) 12/22/17 12:10 Alkaline Phosphatase 107 IU/L (38-126) 12/22/17 12:10 POC Troponin I 0.02 ng/mL (0.00-0.08) 12/22/17 12:13 NT-Pro-B Natriuret Pep 1250 pg/mL (0-125) H 12/22/17 12:10 Total Protein 8.0 g/dL (6.3-8.2) 12/22/17 12:10 Albumin 2.8 g/dL (3.5-5.0) L 12/22/17 12:10 Patient ABO/Rh A POSITIVE 12/22/17 13:15 Antibody Screen NEGATIVE 12/22/17 13:15 Assessment & Plan Assessment: #Anasarca #CHF, diastolic and right sided with acute failure #Anemia, macrocytosis #thrombocytopenia #Coagulopathy, stable #Cirrhosis and ESLD #CAD, s/p stent #STEFANIE, not compliant with CPAP #IDDM #Deconditioning Plan: IV Diuretics No need for TTE as recently checked telemetry Appropriate home meds Glucose optimization, check A1C PT/OT SCD's
[2017-12-22] MEDS: INSULIN LISPRO 100 UNIT/ML SC SCH (19:20)
[2017-12-22] MEDS: INSULIN REGULAR HUMAN SQ SCH (19:27)
[2017-12-22] MEDS ORDERED: INSULIN GLARGINE 100 UNITS/ML UNIT SC ONE (21:00)
[2017-12-23 04:26] LABS: INR 1.9 (0.83-1.16); PROTIME(PATIENT) 21.9 SEC (12.0-15.0)
[2017-12-23 04:44] LABS: PLATELET COUNT 40 10^3/uL (150-400)
[2017-12-23] MEDS ORDERED: INSULIN REGULAR HUMAN SQ SCH (09:00)
[2017-12-23] MEDS: FUROSEMIDE 40 MG/4 ML VIAL IVP SCH ×2 (09:28→16:35)
[2017-12-23] MEDS: ESCITALOPRAM OXALATE 10 MG TAB PO SCH (09:28)
[2017-12-23] MEDS: INSULIN LISPRO 100 UNIT/ML SC SCH ×3 (09:28→17:48)
[2017-12-23] MEDS: SPIRONOLACTONE 50 MG TAB PO SCH (09:28)
[2017-12-23] MEDS: LACTULOSE 20 GM/30 ML UDCUP PO SCH (09:33)
--- NOTE | 2017-12-23 10:14 | ASMTCASEMG ---
Living Arrangements What is your living Answers: With Spouse arrangement? Who do you live with? Type Of Residence What kind of residence do Answers: House you live in? Discharge Plan Comments Coordination Status Comments Notes: Pt is a 62 y/o man admitted for fluid overload, anemia, CHF and cirrhosis. Therapies have been ordered and awaiting recommendations. Pt was here recently on 10/10/17 to 10/17/17 for a similar presentation and went to [facility] for rehab. Needs are TBD at this time. CM to follow. Plan: TBD Date Signed: 12/23/2017 10:14 AM Electronically Signed By:THANH Benites
--- NOTE | 2017-12-23 13:25 | HOSPPROG ---
Hospitalist Progress Note Assessment/Plan: #Anasarca #CHF, diastolic and right sided with acute failure #Anemia, macrocytosis #thrombocytopenia #Coagulopathy, stable #Cirrhosis and ESLD #CAD, s/p stent #STEFANIE, not compliant with CPAP #IDDM #Deconditioning Plan: Cont IV Diuretics No need for TTE as recently checked telemetry Appropriate home meds May consider PRBC transfusion tomorrow Glucose optimization, A1C is pending PT/OT SCD's Subjective: good diuresis. no cp or sob. leg swelling is improving Objective: Vital Signs Temp Pulse Resp BP Pulse Ox 36.6 C 73 18 122/62 H 100 12/23/17 11:56 12/23/17 11:56 12/23/17 11:56 12/23/17 11:56 12/23/17 11:56 Laboratory Results 12/23/17 03:36 12/23/17 03:36 12/22/17 12/23/17 12/24/17 05:59 05:59 05:59 Intake Total 400 Output Total 2700 Balance -2300 PT 21.9 SEC (12.0-15.0) H 12/23/17 03:36 INR 1.90 (0.83-1.16) H 12/23/17 03:36 - Physical Exam Constitutional: no apparent distress, not in pain Eyes: PERRL, EOMI Ears, Nose, Mouth, Throat: moist mucous membranes, hearing normal Cardiovascular: regular rate and rhythym, edema Respiratory: no respiratory distress, no rales or rhonchi, clear to auscultation Gastrointestinal: normoactive bowel sounds Skin: warm Neurologic: AAOx3 Psychiatric: interacting appropriately, not anxious, not encephalopathic Lymph, Heme, Immunologic: No petechiae ICD10 Worksheet Patient Problems: Problems Problem Status Onset Anemia Acute Cirrhosis Acute Congestive heart failure Acute Fluid overload Acute Renal insufficiency Acute Altered mental status Acute Anasarca Acute Ascites Acute Cellulitis Acute Dyspnea Acute Edema Acute Hyperammonemia Acute Jaundice Acute Liver failure Acute Nausea & vomiting Acute Sepsis Acute Thrombocytopenia Acute
--- NOTE | 2017-12-23 14:01 | PDMN ---
Medical Necessity Medical necessity: MCG: M190 Heart Failure; M570 Liver disease complications: A- 2 days: CHF, diastolic and right sided w/ acute failure, Anasarca, anemic (H/H .2) w/ possible upcoming transfusion PRBC, SOB, Continue scheduled IV diuretics, Hx of advanced cirrhosis, CAD w/ multiple stents, insulin dependent diabetes, pacemaker. Continue to monitor and treat, anticipate >2MN.
[2017-12-23] MEDS: INSULIN REGULAR HUMAN SQ SCH (18:17)
[2017-12-24 04:19] LABS: INR 1.76 (0.83-1.16); PROTIME(PATIENT) 20.6 SEC (12.0-15.0)
[2017-12-24 04:41] LABS: PLATELET COUNT 47 10^3/uL (150-400)
--- NOTE | 2017-12-24 08:01 | HOSPPROG ---
Hospitalist Progress Note Assessment/Plan: #Anasarca #CHF, diastolic and right sided with acute failure #Anemia, macrocytosis #thrombocytopenia #Coagulopathy, stable #Cirrhosis and ESLD #CAD, s/p stent #STEFANIE, not compliant with CPAP #IDDM #Deconditioning Plan: Increase IV diuretics. Tolerating well. Improving. No need for TTE as recently checked telemetry Appropriate home meds PRBC transfusion PRN Glucose optimization PT/OT SCD's Subjective: no cp or sob. no overnight events diuresing well. labs reviewed Objective: Vital Signs Temp Pulse Resp BP Pulse Ox 36.2 C 74 16 130/61 H 91 L 12/24/17 03:46 12/24/17 03:46 12/24/17 03:46 12/24/17 03:46 12/24/17 03:46 Laboratory Results 12/24/17 03:22 12/24/17 03:22 12/23/17 12/24/17 12/25/17 05:59 05:59 05:59 Intake Total 400 2725 Output Total 2700 3600 Balance -2300 -875 PT 20.6 SEC (12.0-15.0) H 12/24/17 03:22 INR 1.76 (0.83-1.16) H 12/24/17 03:22 - Physical Exam Constitutional: no apparent distress, not in pain Eyes: PERRL, EOMI Ears, Nose, Mouth, Throat: moist mucous membranes Cardiovascular: regular rate and rhythym, edema Respiratory: no respiratory distress, no rales or rhonchi, clear to auscultation Gastrointestinal: normoactive bowel sounds, soft, non-tender abdomen Skin: warm Neurologic: AAOx3 Psychiatric: interacting appropriately, not anxious, not encephalopathic Lymph, Heme, Immunologic: No petechiae ICD10 Worksheet Patient Problems: Problems Problem Status Onset Anemia Acute Cirrhosis Acute Congestive heart failure Acute Fluid overload Acute Renal insufficiency Acute Altered mental status Acute Anasarca Acute Ascites Acute Cellulitis Acute Dyspnea Acute Edema Acute Hyperammonemia Acute Jaundice Acute Liver failure Acute Nausea & vomiting Acute Sepsis Acute Thrombocytopenia Acute
[2017-12-24] MEDS: INSULIN LISPRO 100 UNIT/ML SC SCH ×3 (09:53→17:57)
[2017-12-24] MEDS: ESCITALOPRAM OXALATE 10 MG TAB PO SCH (09:57)
[2017-12-24] MEDS: LACTULOSE 20 GM/30 ML UDCUP PO SCH (09:57)
[2017-12-24] MEDS: SPIRONOLACTONE 50 MG TAB PO SCH (09:57)
[2017-12-24] MEDS: FUROSEMIDE 40 MG/4 ML VIAL IVP SCH ×2 (09:58→15:07)
--- NOTE | 2017-12-24 15:20 | ASMTCMCOM ---
CM Note CM Note Notes: PT recommending home vs home w/24hr supervision. OT recommending SNF. Spoke with pt's RN. Met with pt to discuss; pt was here in October & discharged to [facility] & states he "did not like it". Pt also reports he had a HHC RN that came to his house after discharging from [facility], but does not know the name of the agency. Pt is not interested in having HHC. He plans to return home with the support of his , Ya. Pt states Pat is retired & is able to take care him 31/01. Anticipate dc home when medically stable. CM available if needs/changes. Dc poc-Home Independent Date Signed: 12/24/2017 03:19 PM Electronically Signed By:Shoshana Carnes RN
[2017-12-24] MEDS ORDERED: D50W 25 GM/50 ML VIAL IVP PRN (18:00)
[2017-12-24] MEDS ORDERED: INSULIN GLARGINE 100 UNITS/ML UNIT SC ONE (21:00)
--- NOTE | 2017-12-25 08:12 | HOSPPROG ---
Hospitalist Progress Note Assessment/Plan: #Anasarca #CHF, diastolic and right sided with acute failure #Anemia, macrocytosis #thrombocytopenia #Coagulopathy, stable #Cirrhosis and ESLD #CAD, s/p stent #STEFANIE, not compliant with CPAP #IDDM #Deconditioning Plan: The pt's peripheral IV has dislodged and attempts to place a new one have been unsuccessful. He needs a PICC line. No labs this morning have been obtained. He has not received diuretics since yesterday. Volume status is improving but he still looks to have volume overload. We will wait for labs prior to further diuretics. No need for TTE as recently checked telemetry Appropriate home meds PRBC transfusion PRN Glucose optimization PT/OT SCD's Subjective: no cp or sob. no labs obtained this morning. Objective: Vital Signs Temp Pulse Resp BP Pulse Ox 36.6 C 68 20 110/59 L 94 12/25/17 04:00 12/25/17 04:00 12/25/17 04:00 12/25/17 04:00 12/25/17 04:00 Laboratory Results 12/24/17 03:22 12/24/17 08:35 12/24/17 12/25/17 12/26/17 05:59 05:59 05:59 Intake Total 2725 840 Output Total 3600 4850 Balance -875 -4010 PT 20.6 SEC (12.0-15.0) H 12/24/17 03:22 INR 1.76 (0.83-1.16) H 12/24/17 03:22 - Physical Exam Constitutional: no apparent distress Eyes: PERRL Ears, Nose, Mouth, Throat: moist mucous membranes, hearing normal Cardiovascular: regular rate and rhythym, edema Respiratory: no respiratory distress Gastrointestinal: normoactive bowel sounds Skin: warm Neurologic: No AAOx3 Psychiatric: interacting appropriately, not anxious Lymph, Heme, Immunologic: No petechiae ICD10 Worksheet Patient Problems: Problems Problem Status Onset Anemia Acute Cirrhosis Acute Congestive heart failure Acute Fluid overload Acute Renal insufficiency Acute Altered mental status Acute Anasarca Acute Ascites Acute Cellulitis Acute Dyspnea Acute Edema Acute Hyperammonemia Acute Jaundice Acute Liver failure Acute Nausea & vomiting Acute Sepsis Acute Thrombocytopenia Acute
[2017-12-25] MEDS: INSULIN LISPRO 100 UNIT/ML SC SCH ×3 (09:18→18:19)
[2017-12-25] MEDS: LACTULOSE 20 GM/30 ML UDCUP PO SCH (09:19)
[2017-12-25] MEDS: ESCITALOPRAM OXALATE 10 MG TAB PO SCH (09:20)
[2017-12-25 14:55] LABS: PLATELET COUNT 29 10^3/uL (150-400)
[2017-12-25] MEDS ORDERED: FUROSEMIDE 40 MG/4 ML VIAL IVP ONE (15:30)
[2017-12-25] MEDS: SPIRONOLACTONE 50 MG TAB PO SCH (15:45)
[2017-12-25] MEDS ORDERED: INSULIN GLARGINE 100 UNITS/ML UNIT SC ONE (17:30)
[2017-12-25] MEDS ORDERED: FUROSEMIDE 20 MG/2 ML VIAL IVP ONE (20:00)
[2017-12-26 06:00] LABS: PLATELET COUNT 28 10^3/uL (150-400)
[2017-12-26] MEDS ORDERED: ALTEPLASE 2 MG VIAL IVP PRN (08:00)
[2017-12-26] MEDS: SPIRONOLACTONE 50 MG TAB PO SCH (09:02)
[2017-12-26] MEDS: LACTULOSE 20 GM/30 ML UDCUP PO SCH (09:02)
[2017-12-26] MEDS: ESCITALOPRAM OXALATE 10 MG TAB PO SCH (09:02)
[2017-12-26] MEDS: INSULIN LISPRO 100 UNIT/ML SC SCH ×3 (09:04→13:30)
--- NOTE | 2017-12-26 09:47 | HOSPPROG ---
Hospitalist Progress Note Assessment/Plan: DIAGNOSES: # acute CHF, diastolic and right sided with acute failure. * Improving slowly with ongoing diuresis * Suspect he developed gut edema and was not absorbing his diuretics orally at home leading to severe volume overload # IDDM * High sugars here are the mainstay so far ability he did have some very severe nocturnal low sugars on his 1st night; we started off using his usual twice daily high dose U 500 insulin which has unfortunately identical kinetics as standard dose regular insulin but is often used twice daily by many physicians as if it had the kinetics of NPH, suspect he has likely been having erratic sugars with low sugars at night at home as well * At this time will try a using lower doses of U 500 on a different scheduled to see if we can come up with adequate control but with a prior T of avoiding low sugars to start with, careful titration up from there; his home dose was a total of 400 units daily, and I will start with conservatively less than that and titrate up while here # Anasarca # macrocytic anemia, Coagulopathy and thrombocytopenia, due to his liver disease , stable # Cirrhosis and end-stage liver disease # history of CAD, s/p stent, appears stable at present # STEFANIE, not compliant with CPAP at home # Deconditioning Seen by me today on multidisciplinary rounds as well as hospitals rounds PLANS: -continue current diuresis with IV Lasix and to lose edema is reduced to the point where he will reliably absorb oral meds -will change insulin dosing as above, attempting to stay on his U 500 since he is familiar with that and he needs such high dosing; doubt he can afford newer medications -follow renal function and electrolytes closely -I reviewed low-salt diet with him, but I think I will need to review this with his as well, is unclear to me that he can keep adequate track of this on his own; will also need to check with his to determine whether he is as compliant with medicines as it sounds like he is telling us -will need very for close follow-up in the outpatient setting with his primary care and his infection control manager SUBJECTIVE: Patient states he is feeling somewhat better in the way of better energy and better appetite No pain or discomfort No fever symptoms OBJECTIVE Vitals reviewed: All stable without fever It Security Analyst, my review: Sinus Exam: alert oriented skin warm dry color ok resps not labored lungs clear BSs heart regular abd soft nondistended nontender, bowel sounds present limbs warm, no edema iv site ok Laboratory data: Coagulopathy numbers stable, hemoglobin actually improved a bit with diuresis Sugars at this point consistently quite high Renal function and electrolytes remained stable Objective: Vital Signs Temp Pulse Resp BP Pulse Ox 36.6 C 60 20 114/63 98 12/26/17 07:07 12/26/17 07:07 12/26/17 07:07 12/26/17 07:07 12/26/17 07:07 Laboratory Results 12/26/17 05:15 12/26/17 05:15 12/25/17 12/26/17 12/27/17 06:59 06:59 06:59 Intake Total 840 900 Output Total 5971 9709 Balance -4010 -3925 PT 20.6 SEC (12.0-15.0) H 12/24/17 03:22 INR 1.76 (0.83-1.16) H 12/24/17 03:22 - Time Spent With Patient Time Spent with Patient: greater than 35 minutes Time Spent with Patient: Greater than 35 minutes spent on this patients care, greater than 50% of time spent counseling, educating, and coordinating care regarding the above mentioned plan. ICD10 Worksheet Patient Problems: Problems Problem Status Onset Anemia Acute Cirrhosis Acute Congestive heart failure Acute Fluid overload Acute Renal insufficiency Acute Altered mental status Acute Anasarca Acute Ascites Acute Cellulitis Acute Dyspnea Acute Edema Acute Hyperammonemia Acute Jaundice Acute Liver failure Acute Nausea & vomiting Acute Sepsis Acute Thrombocytopenia Acute
[2017-12-26] MEDS: FUROSEMIDE 100 MG/10 ML VIAL IVP SCH ×2 (13:06→18:16)
[2017-12-26] MEDS ORDERED: INSULIN REGULAR HUMAN 100 UNIT/ML UNIT SC SCH (17:30)
[2017-12-26] MEDS ORDERED: INSULIN REGULAR HUMAN 100 UNIT/ML UNIT SC ONE (23:01)
[2017-12-27 06:27] LABS: PLATELET COUNT 35 10^3/uL (150-400)
[2017-12-27] MEDS ORDERED: INSULIN REGULAR HUMAN 100 UNIT/ML UNIT SC SCH ×4 (07:30→14:24)
[2017-12-27] MEDS: ESCITALOPRAM OXALATE 10 MG TAB PO SCH (10:35)
[2017-12-27] MEDS: LACTULOSE 20 GM/30 ML UDCUP PO SCH (10:35)
[2017-12-27] MEDS: SPIRONOLACTONE 50 MG TAB PO SCH (10:35)
[2017-12-27] MEDS: FUROSEMIDE 100 MG/10 ML VIAL IVP SCH ×2 (10:36→15:36)
--- NOTE | 2017-12-27 13:50 | ASMTCMCOM ---
CM Note CM Note Notes: 12/27/2017 Case Management Note Met w/pt today during rounds. Pt continues to decline case management assistance for discharge. Case Management d/c poc: independent with family support and follow up as directed. Case Management to follow. Date Signed: 12/27/2017 01:49 PM Electronically Signed By:Yahaira Abdul RN
[2017-12-27] MEDS ORDERED: INSULIN REGULAR HUMAN 100 UNIT/ML UNIT SC ONE (14:45)
[2017-12-27] MEDS: INSULIN REGULAR HUMAN 100 UNIT/ML UNIT SC SCH (17:36)
--- NOTE | 2017-12-27 18:53 | HOSPPROG ---
Hospitalist Progress Note Assessment/Plan: DIAGNOSES: # acute CHF, diastolic and right sided with acute failure. * Improving slowly with ongoing diuresis * Suspect he developed gut edema and was not absorbing his diuretics orally at home leading to severe volume overload # IDDM * High sugars here are the mainstay so far ability he did have some very severe nocturnal low sugars on his 1st night; we started off using his usual twice daily high dose U 500 insulin which has unfortunately identical kinetics as standard dose regular insulin but is often used twice daily by many physicians as if it had the kinetics of NPH, suspect he has likely been having erratic sugars with low sugars at night at home as well * At this time has switch to three times daily pre meal short-acting insulin and will slowly titrate the dosing up until we get beneficial effect of his postprandial sugars, watch carefully for or any sign of nocturnal lows. If he continues to have high fasting sugars over time it could be that a small dose of NPH in the evening would handle that for him. I think finances will take a major role in the choice of insulins for him and he will not likely to be able to afford Humalog or the newer long-acting insulins and this as well as his apparent significant insulin resistance has led to his use of the U 500. # Anasarca # macrocytic anemia, Coagulopathy and thrombocytopenia, due to his liver disease , stable # Cirrhosis and end-stage liver disease # history of CAD, s/p stent, appears stable at present # STEFANIE, not compliant with CPAP at home # Deconditioning Seen by me today on multidisciplinary rounds as well as hospitals rounds PLANS: -continue current diuresis with IV Lasix and to lose edema is reduced to the point where he will reliably absorb oral meds, probably 1-2 more days here -will change insulin dosing as above; doubt he can afford newer medications -follow renal function and electrolytes closely -I reviewed low-salt diet with him, but I think I will need to review this with his as well, is unclear to me that he can keep adequate track of this on his own; will also need to check with his to determine whether he is as compliant with medicines as it sounds like he is telling us -will need very for close follow-up in the outpatient setting with his primary care and his housecleaner SUBJECTIVE: Feels good today with no nausea, no pain or discomfort no respiratory symptoms OBJECTIVE Vitals reviewed: All stable without fever Plastic Design Applier, my review: Sinus Exam: alert oriented skin warm dry color ok resps not labored lungs clear BSs heart regular abd soft nondistended nontender, bowel sounds present limbs warm, no edema iv site ok Laboratory data: No low sugars, still with some high sugars but a little better than yesterday Hemoglobin actually increasing as we diurese him so I think some of his anemia was delusional Renal function and electrolytes normal Objective: Vital Signs Temp Pulse Resp BP Pulse Ox 36.6 C 67 14 111/74 94 12/27/17 15:53 12/27/17 15:53 12/27/17 15:53 12/27/17 15:53 12/27/17 15:53 Laboratory Results 12/27/17 05:52 12/27/17 05:52 12/26/17 12/27/17 12/28/17 06:59 06:59 06:59 Intake Total 900 1990 1280 Output Total 4825 7100 625 Balance -3925 -9755 655 PT 20.6 SEC (12.0-15.0) H 12/24/17 03:22 INR 1.76 (0.83-1.16) H 12/24/17 03:22 - Time Spent With Patient Time Spent with Patient: greater than 35 minutes Time Spent with Patient: Greater than 35 minutes spent on this patients care, greater than 50% of time spent counseling, educating, and coordinating care regarding the above mentioned plan. ICD10 Worksheet Patient Problems: Problems Problem Status Onset Anemia Acute Cirrhosis Acute Congestive heart failure Acute Fluid overload Acute Renal insufficiency Acute Altered mental status Acute Anasarca Acute Ascites Acute Cellulitis Acute Dyspnea Acute Edema Acute Hyperammonemia Acute Jaundice Acute Liver failure Acute Nausea & vomiting Acute Sepsis Acute Thrombocytopenia Acute
[2017-12-28] MEDS: LACTULOSE 20 GM/30 ML UDCUP PO SCH (10:15)
[2017-12-28] MEDS: FUROSEMIDE 100 MG/10 ML VIAL IVP SCH ×2 (10:15→15:51)
[2017-12-28] MEDS: ESCITALOPRAM OXALATE 10 MG TAB PO SCH (10:15)
[2017-12-28] MEDS: SPIRONOLACTONE 50 MG TAB PO SCH (10:16)
[2017-12-28] MEDS: INSULIN REGULAR HUMAN 100 UNIT/ML UNIT SC SCH (17:06)
--- NOTE | 2017-12-28 21:24 | HOSPPROG ---
Hospitalist Progress Note Assessment/Plan: DIAGNOSES: # acute CHF, diastolic and right sided with acute failure. * Improving slowly with ongoing diuresis * Suspect he developed gut edema and was not absorbing his diuretics orally at home leading to severe volume overload # IDDM * High sugars here are the mainstay so far ability he did have some very severe nocturnal low sugars on his 1st night; we started off using his usual twice daily high dose U 500 insulin which has unfortunately identical kinetics as standard dose regular insulin but is often used twice daily by many physicians as if it had the kinetics of NPH, suspect he has likely been having erratic sugars with low sugars at night at home as well * At this time has switch to three times daily pre meal short-acting insulin and will slowly titrate the dosing up until we get beneficial effect of his postprandial sugars, watch carefully for or any sign of nocturnal lows. If he continues to have high fasting sugars over time it could be that a small dose of NPH in the evening would handle that for him. I think finances will take a major role in the choice of insulins for him and he will not likely to be able to afford Humalog or the newer long-acting insulins and this as well as his apparent significant insulin resistance has led to his use of the U 500. # Anasarca # macrocytic anemia, Coagulopathy and thrombocytopenia, due to his liver disease , stable # Cirrhosis and end-stage liver disease # history of CAD, s/p stent, appears stable at present # STEFANIE, not compliant with CPAP at home # Deconditioning Seen by me today on multidisciplinary rounds as well as hospitals rounds PLANS: -continue current diuresis with IV Lasix and to lose edema is reduced to the point where he will reliably absorb oral meds, probably 1-2 more days here -will change insulin dosing as above; doubt he can afford newer medications -follow renal function and electrolytes closely -I reviewed low-salt diet with him again today and also with his who was present at the bedside today. She understands this well and is committed to trying to work within the family to get him the diet he needs. -will need very for close follow-up in the outpatient setting with his primary care and his machine stonecutter SUBJECTIVE: Feels good today with no nausea, no pain or discomfort no respiratory symptoms OBJECTIVE Vitals reviewed: All stable without fever Applications Consultant, my review: Sinus Exam: alert oriented skin warm dry color ok resps not labored lungs clear BSs heart regular abd soft nondistended nontender, bowel sounds present limbs warm, no edema iv site ok Laboratory data: No low sugars, still with some high sugars in the postprandial setting especially Renal function and electrolytes normal Objective: Vital Signs Temp Pulse Resp BP Pulse Ox 36.5 C 68 17 127/65 H 96 12/28/17 20:16 12/28/17 20:16 12/28/17 20:16 12/28/17 20:16 12/28/17 20:16 Laboratory Results 12/27/17 05:52 12/28/17 05:26 12/27/17 12/28/17 12/29/17 06:59 06:59 06:59 Intake Total 1989 1930 1190 Output Total 7100 2573 1700 Balance -5110 -645 -510 PT 20.6 SEC (12.0-15.0) H 12/24/17 03:22 INR 1.76 (0.83-1.16) H 12/24/17 03:22 ICD10 Worksheet Patient Problems: Problems Problem Status Onset Anemia Acute Cirrhosis Acute Congestive heart failure Acute Fluid overload Acute Renal insufficiency Acute Altered mental status Acute Anasarca Acute Ascites Acute Cellulitis Acute Dyspnea Acute Edema Acute Hyperammonemia Acute Jaundice Acute Liver failure Acute Nausea & vomiting Acute Sepsis Acute Thrombocytopenia Acute
[2017-12-28] MEDS ORDERED: INSULIN REGULAR HUMAN 100 UNIT/ML UNIT SC SCH ×3 (21:27)
[2017-12-29] MEDS: LACTULOSE 20 GM/30 ML UDCUP PO SCH (08:40)
[2017-12-29] MEDS: FUROSEMIDE 100 MG/10 ML VIAL IVP SCH (08:41)
[2017-12-29] MEDS: ESCITALOPRAM OXALATE 10 MG TAB PO SCH (08:42)
[2017-12-29] MEDS: SPIRONOLACTONE 50 MG TAB PO SCH (08:42)
[2017-12-29] MEDS ORDERED: FUROSEMIDE 40 MG/4 ML VIAL IVP SCH ×2 (09:00→15:00)
--- NOTE | 2017-12-29 15:07 | PDDCSUM ---
Discharge Summary Discharge Summary: DISCHARGE DIAGNOSES: -acute congestive heart failure, right-sided and diastolic -anasarca due to heart failure and chronic liver disease -uncontrolled diabetes with severe episodes of nocturnal hypoglycemia -preserved renal function -obstructive sleep apnea, noncompliant with CPAP at home -chronic cirrhosis, complicated by portal hypertension and edema, status post TIPS -chronic stable macrocytic anemia thrombocytopenia and coagulopathy of liver disease HOSPITAL COURSE SUMMARY: This patient with known severe chronic heart failure and liver failure with cirrhosis, tips procedure, prior coronary stent, comes in with massive edema and anasarca. He has been on a very high salt diet at home. His compliance with his diuretics is not entirely certain. At this point there were no symptoms or other findings to suggest new ischemic disease. He was treated with intravenous Lasix and continued Aldactone therapy and responded very well. We removed about 26-27 lb of water here and his liver heart and kidneys all seem to tolerate that very well. At this point it is felt like he will absorb his oral diuretic better with this fluid loss. We had extensive discussions with the patient and his regarding importance of a low-salt diet and restricted fluid intake, and they seem to understand this now. We did have the meet with a aeronautical design engineer here. Also the patient has type 2 DM with severe insulin resistance and has been using very high doses of U500 (400 units per day). Here his 250 am 150 pm dosing from home was ordered but he had sugar of 35 on the first night. He tells me he had a recent hospitalization on [place] where he suffered a low sugar complicated by seizure and stroke symptoms which have resolved. At this point he clearly will not be able to safely use this insulin regimen and avoid low sugars. I made it very clear to the patient and his that he cannot treat his fasting a.m. Sugars with these short-acting high dose insulin treatments. He can however treat his postprandial sugars with the U 500 but it should be used in a three times daily pre meal fashion. Here we backed off dramatically on the insulin dosing allowing the sugars to rise to avoid any lows and we have been gradually increasing the insulin dosing. Yesterday he received 20 units before meals and still had postprandial sugars greater than 300 that was greater than 400. Today we have increased his pre meal insulin to 40 unit doses but he has not yet had any low sugars. This morning he had a fasting sugar of 180 without any long-acting insulin being given. My suspicion is that he cannot afford any of the newer long-acting insulins nor NovoLog or Humalog. He probably would have trouble affording any of the newer oral drugs as well. I think that his fasting sugars will probably be at least reasonable if he treats his postprandial sugars with his U 500. If he continues to have high fasting sugars in the morning he may need to get some NPH insulin to take at night in low dose. For now my guess is he will probably need somewhere around 60-80 or may be 100 units of pre meal insulin to control postprandial sugars. My recommendation is he start with 60 units before each meal and follow his sugars and gradually increase his doses pre meals to get postprandial sugars hopefully in the 150-180 range, but all the while being careful to avoid low sugars and backing off if necessary to ensure that. We have also given him significant counseling about diabetic diet. I have recommended that he follow up with his primary physician and his other physicians in the very near future, primary within 1-2 weeks PENDING TEST RESULTS: None MEDICATION CHANGES: Decrease in U 500 dose and changed to tid dosing starting at 60 units before meals, gradually increasing based on his sugars in the postprandial setting FOLLOW-UP PLAN: Primary care physician within 1 week, with his rn clinical research as previously planned or sooner if needed Greater than 35 minutes bedside and care coordination time today
[2017-12-29 15:24] VITALS: BP 112/41
== END 2017-12-29 18:14 | disposition home or self-care (01) | DRG 292 ==
LOC: F2W 15:08
PROVIDERS: ADMIT Family Medicine; ATTEND Family Medicine
PROC: 30233N1 Transfusion of Nonautologous Red Blood Cells into Peripheral Vein, Percutaneous Approach (ICD-10-PCS; 2017-12-25)
PROC: 02H633Z Insertion of Infusion Device into Right Atrium, Percutaneous Approach (ICD-10-PCS; principal; 2017-12-26)
DX: I11.0 Hypertensive heart disease with heart failure (principal); I50.31 Acute diastolic (congestive) heart failure; K76.6 Portal hypertension; I50.811 Acute right heart failure; E11.649 Type 2 diabetes mellitus with hypoglycemia without coma; G47.33 Obstructive sleep apnea (adult) (pediatric); K74.60 Unspecified cirrhosis of liver; Z91.14 Patient's other noncompliance with medication regimen; D53.9 Nutritional anemia, unspecified; D69.6 Thrombocytopenia, unspecified; E78.5 Hyperlipidemia, unspecified; Z86.73 Personal history of transient ischemic attack (TIA), and cerebral infarction without residual deficits; Z95.5 Presence of coronary angioplasty implant and graft; Z95.0 Presence of cardiac pacemaker
CPT/HCPCS: 84484-PO; 96374; 97110-GP; 97116-GP; 97161-GP; 97166-GO; 97535-GO; C1751; G8978-GP-CI; G8979-GP-CI; G8987-GO-CK; G8988-GO-CJ; J1815; J1940; P9016

== ENCOUNTER 2018-01-10 15:41 | Inpatient (IN) | payer OTHER ==
--- NOTE | 2018-01-10 16:28 | CPEKG ---
Heart Rate: 91 RR Interval: 659 P-R Interval: 216 QRSD Interval: 136 QT Interval: 416 QTC Interval: 512 P Nice: 14 QRS Nice: -76 T Wave Nice: 85 EKG Severity - ABNORMAL ECG - EKG Impression: SINUS RHYTHM EKG Impression: FIRST DEGREE AV BLOCK EKG Impression: RIGHT BUNDLE BRANCH BLOCK EKG Impression: LVH WITH IVCD AND SECONDARY REPOL ABNRM Electronically Signed By: Shelia Torres 10-Jan-2018 18:15:39
[2018-01-10] MEDS ORDERED: ONDANSETRON 4 MG/2 ML VIAL IVP PRN (16:37)
[2018-01-10] MEDS ORDERED: ONDANSETRON DISINTEGRATING 4 MG TAB PO PRN (16:37)
[2018-01-10] MEDS ORDERED: ACETAMINOPHEN 325 MG TAB PO PRN (16:37)
[2018-01-10] MEDS ORDERED: D50W 25 GM/50 ML SYR IVP PRN (16:48)
[2018-01-10] MEDS ORDERED: LACTULOSE 20 GM/30 ML UDCUP PO ONE (16:50)
[2018-01-10 17:45] LABS: PLATELET COUNT 82 10^3/uL (150-400)
[2018-01-10] MEDS ORDERED: NS 1,000 ML IV SCH (17:45)
[2018-01-10 17:58] LABS: INR 1.69 (0.83-1.16)
[2018-01-10] MEDS ORDERED: INSULIN LISPRO 100 UNIT/ML SC SCH (18:00)
[2018-01-10] MEDS ORDERED: cefTRIAXone 1 GM/DEXTROSE 1 GM/50 ML BAG IV ONE (18:00)
--- NOTE | 2018-01-10 18:24 | GHP ---
[f rep st] HISTORY AND PHYSICAL DATE OF ADMISSION: 01/10/2018 CHIEF COMPLAINT: Confusion, falls. HISTORY OF PRESENT ILLNESS: Obtained from as the patient is encephalopathic. The patient is a 62-year-old male with multiple comorbidities including cryptogenic cirrhosis status post TIPS, diasto lic heart failure, STEFANIE not compliant with CPAP who has been confused over the last 3 days. He was di scharged from the hospital, on 12/29/2017, for volume overload. says he has been doing fairly w ell after discharge. He had been walking, eating, and drinking normally. He had abrupt blade changer the last couple of days with multiple falls skinning his knees. She is not able to lift him up. He has had nonbloody emesis and a dry cough. He has had decreased p.o. intake and urinary output over t he last couple of days. No diarrhea. No chills. No sweats. REVIEW OF SYSTEMS: Completed with and review of [facility]. PAST MEDICAL HISTORY: STEFANIE noncompliant with CPAP, cryptogenic cirrhosis status post TIPS, diastolic heart failure. Echo, 07/18/2017, with EF of 45%. Diabetes on U500, pacemaker, varices, hypertension , hyperlipidemia, TBI. He has not been having bowel movements despite lactulose daily. Thrombocytop enia/anemia. PAST SURGICAL HISTORY: Pacemaker, PCI, TIPS. FAMILY HISTORY: Noncontributory. SOCIAL HISTORY: He lives with his in [place]. No alcohol, tobacco, or illicits. HOME MEDICATIONS: 1. Aldactone 200 mg daily. 2. Lactulose 30 mg daily. 3. Insulin U500 60 units t.i.d. 4. Lasix 80 mg daily. PHYSICAL EXAMINATION: VITAL SIGNS: Temperature 36.5, blood pressure is 143/77, heart rate in the 70 s, respirations 18, 97% on room air. GENERAL: He is confused lying in bed in no acute distress. HE ENT: PERRLA. He has an abrasion over the bridge of his nose. Dry mucous membranes. CV: Regular r ate and rhythm. LUNGS: Clear anteriorly. ABDOMEN: Obese, but soft, nontender, nondistended. Posi tive bowel sounds. : No suprapubic tenderness. MUSCULOSKELETAL: He is moving all 4 extremities. SKIN: He has abrasions over bilateral knees that are dressed with clear dressing. NEURO: No foca l deficits. PSYCH: He is alert to hospital, [place], not date or president. LABS: Sodium 135, potassium 5.5, chloride is 102, creatinine is 1.9 with baseline 0.9, glucose is 36 2. Ammonia is 98. UA +2 blood, +2 leukoesterase, +4 bacteria, 50-182 WBCs. EKG is personally reviewed by me with right bundle branch block, LVH. ASSESSMENT AND PLAN: 1. Acute encephalopathy: Multifactorial with UTI and cirrhosis, not having bowel movements. Treat with IV ceftriaxone. Culture is pending. We will dose lactulose 3 times a day. Per , no other infectious symptoms. 2. Acute kidney injury: Creatinine is 1.9. She endorsed decreased p.o. intake. Does appear dry on exam. We will hydrate gently with diastolic heart failure. Check urine lytes. 3. Urinary tract infection. Ceftriaxone, culture as above. 4. Macrocytic anemia. H and H stable. 5. History of thrombocytopenia. Full labs are pending. 6. Mechanical falls likely secondary to acute infection: We will have PT/OT evaluate when mentation improves. 7. Obstructive sleep apnea: Not compliant with CPAP. 8. Compensated diastolic/systolic heart failure: EF is 45% to 50%. He is actually dry on exam. We will hold diuretics and give gentle fluids. 9. Type 2 diabetes: He is on U500. brought in his pen. We will decrease tonight's dose with minimal p.o. intake. Reassess in the morning. 10. Hyperlipidemia: He is not on a statin. 11. Cryptogenic cirrhosis, compensated: Hold diuretics with acute kidney injury. 12. History of varices: No evidence of bleeding. 13. Diet: Diabetic, 2 gm sodium. 14. Deep venous thrombosis prophylaxis: SCDs. DISPOSITION: The patient warrants inpatient admission given acute encephalopathy, UTI requiring IV a ntibiotics, fluids and PT. /[id number]/MODL
[2018-01-10] MEDS: INSULIN REGULAR HUMAN 100 UNIT/ML UNIT SC SCH (20:10)
[2018-01-10] MEDS: INSULIN REGULAR HUMAN SQ SCH (22:34)
[2018-01-10] MEDS: LACTULOSE 20 GM/30 ML UDCUP PO SCH (22:35)
--- NOTE | 2018-01-10 23:02 | EDPHY ---
H & P Time Seen by Provider: 01/10/18 15:51 HPI/ROS: CHIEF COMPLAINT: Falls, confused HISTORY OF PRESENT ILLNESS: History was provided by the patient's . Mr. Perla is a 62-year-old male with multiple medical illnesses including cryptogenic cirrhosis status post TIPS, diabetes with insulin resistance, history of diastolic heart failure, and sleep apnea not compliant with CPAP. He was recently hospitalized, December 22 through December 29. Per his , he had been doing relatively well at home until the last few days. He has recently become confused and has been falling frequently. She tells me that she is unable to lift him when he falls. He did not take today's medications. She states that he has not had c fever. He has had a dry cough. He has not been eating and drinking very well and she believes that he has had decreased urine output. She has not been aware of any diarrhea but does not know when he last had a bowel movement. REVIEW OF SYSTEMS: Patient unable to provide. A ten point review of systems was performed and is negative with the exception of the items mentioned in the HPI. Past medical history: 1. Cryptogenic cirrhosis status post TIPS 2. Diastolic heart failure 3. Diabetes with insulin resistant 4. Hypertension 5. Hyperlipidemia 6. Traumatic brain injury 7. Obstructive sleep apnea, not compliant with CPAP Past surgical history: 1. TIPS 2. Pacemaker 3. PCI Social history: He lives with his in [place], [place]. Other family members are present today. He does not use tobacco products, alcohol, or illicit drugs. General Appearance: Alert. Vital signs reviewed. He does not appear to be in any distress. Head: Normocephalic. There is no lesion across the bridge of his nose. Eyes: Pupils equal and round, no conjunctival injection, no discharge. Anicteric. ENT, Mouth: Mucous membranes are dry no oropharyngeal erythema or edema. Neck: No lymphadenopathy, supple. Respiratory: Lungs are clear to auscultation; no wheezes, rales, or rhonchi. Cardiovascular: Regular rate and rhythm; no murmur, rub, or gallop. Gastrointestinal: Abdomen is soft and nontender, liver is enlarged,, bowel sounds normal. Skin: Warm and dry, no rashes on exposed skin, normal color. Bilateral knee abrasions. Back: Nontender to palpation over the thoracolumbar spine. No CVAT. Extremities: No lower extremity edema, no calf tenderness or swelling. Full active range of motion of both knees. Neurological: Alert and oriented to person and to place, not to year. Moving all four extremities spontaneously, easily and equally. USHA. EOMI. Tongue midline. Facial expressions symmetric. Psychiatric: No agitation. Smoking Status: Former smoker Constitutional: Initial Vital Signs Temperature (C) 36.5 C 01/10/18 15:47 Heart Rate 96 01/10/18 15:47 Respiratory Rate 18 01/10/18 15:47 Blood Pressure 143/77 H 01/10/18 15:47 O2 Sat (%) 97 01/10/18 15:47 O2 Delivery Mode Room Air Allergies/Adverse Reactions: No Known Allergies Allergy (Verified 01/10/18 15:44) Home Medications: Medication Instructions Recorded Furosemide [Lasix] 80 mg PO DAILY 01/10/18 Insulin Regular, Human [Humulin R 60 unit SQ AC 01/10/18 U-500 Kwikpen] Lactulose 30 ml PO DAILY 01/10/18 Spironolactone [Aldactone 50 MG 200 mg PO DAILY 01/10/18 (RX)] Medical Decision Making - Diagnostics EKG Interpretation: 12 lead EKG is interpreted in Trace master View by emergency department physician. There is right bundle branch block. ED Course/Re-evaluation: 62-year-old male with multiple medical problems who presents with encephalopathy. He has pneumonia of 98 and known cirrhosis. I suspect that this is part of the issue. He has not taken today's lactulose. A dose was ordered in the emergency department. He is also found have a urinary tract infection, based on urinalysis. This infection is likely also contributing to his encephalopathy. In addition, he has what appears to be acute kidney injury with a BUN of 54 and a creatinine of 1.9. He has not been eating and drinking well at home and appears dehydrated on physical examination. He will need to be carefully rehydrated, given his history of diastolic heart failure. Urine culture and ceftriaxone IV have been ordered by the admitting physician, who has seen the patient in the emergency department. Initial I-STAT showed a potassium of 5.5. Serum potassium was reported as 6.4. EKG was repeated with no significant changes. The blood specimen is noted to be hemolyzed. The admitting physician is aware of this potassium reading and will repeat the potassium level. I note upon later review of his records that a potassium in the early hours of the morning was 4.4. The patient's family has mentioned to me and also to the nursing staff that they are interested in discussing placement, as his does not feel she can adequately care for him at home. Differential Diagnosis: Altered mental status including but not limited to hypoglycemia, infectious process, liver failure, electrolyte abnormality, head injury and intoxicants. - Data Points Medications Given: Diphenhydramine HCl (Benadryl) 25 mg PO Q6HRS PRN PRN Reason: Itching Stop: 07/11/18 02:31 Last Admin: 01/12/18 05:22 Dose: 25 mg Ceftriaxone Sodium/Dextrose (Rocephin 1 Gm (Premix)) 50 mls @ 100 mls/hr IV DAILY KATIE PRN Reason: Protocol Stop: 02/09/18 17:29 Last Admin: 01/11/18 09:01 Dose: 50 mls Insulin Human Regular (Humulin R) 0 unit SC ACHS KATIE PRN Reason: Protocol Stop: 07/09/18 20:59 Last Admin: 01/11/18 20:56 Dose: 8 units Lactulose (Cephulac) 20 gm PO TID KATIE Stop: 07/09/18 21:59 Last Admin: 01/11/18 21:00 Dose: 20 gm Miscellaneous Medication (Insulin Regular, Human [Humulin R U-500 Kwikpen]) 30 unit SQ TID KATIE Stop: 07/09/18 21:59 Last Admin: 01/11/18 11:14 Dose: Not Given Rifaximin (Xifaxan) 550 mg PO BID KATIE PRN Reason: Protocol Stop: 02/10/18 20:59 Last Admin: 01/11/18 20:56 Dose: 550 mg Discontinued Medications Sodium Chloride (Ns) 1,000 mls @ 100 mls/hr IV CONT KATIE Stop: 01/11/18 03:44 Last Admin: 01/10/18 19:50 Dose: 1,000 mls Lactulose 200 gm/ Sodium (Chloride) 1,000 mls @ 0 mls/hr [place] Q6HRS KATIE PRN Reason: As Directed Stop: 02/10/18 11:59 Last Admin: 01/11/18 13:01 Dose: 1,000 mls Insulin Human Lispro (Humalog Lispro) 0 unit SC TIDMEAL KATIE PRN Reason: Protocol Stop: 07/09/18 17:59 Last Admin: 01/10/18 18:52 Dose: Not Given Lactulose (Cephulac) 20 gm PO EDNOW ONE Stop: 01/10/18 16:51 Last Admin: 01/10/18 18:03 Dose: 20 gm Pneumococcal Polyvalent Vaccine (Pneumovax 23) 0.5 ml IM .ONCE ONE Stop: 01/11/18 19:38 Last Admin: 01/11/18 20:54 Dose: 0.5 ml Point of Care Test Results: Chemistry 01/10/18 16:30 POC Sodium 135 mEq/L mEq/L (135-145) POC Potassium 5.5 mEq/L H mEq/L (3.3-5.0) POC Chloride 102 mEq/L mEq/L (97-110) POC BUN 57 mg/dL H mg/dL (7-23) POC Creatinine 1.9 mg/dL H mg/dL (0.7-1.3) POC Glucose 362 mg/dL H mg/dL (70-100) ISTAT H&H 01/10/18 16:30 POC Hgb 10.9 gm/dL L gm/dL (13.7-17.5) POC Hct 32 % L % (40-51) Departure - Departure Disposition: [facility] Acute Clinical Impression: Encephalopathy acute, Acute kidney injury Urinary tract infection Qualifiers: Urinary tract infection type: acute cystitis Hematuria presence: with hematuria Qualified Code(s): N30.01 - Acute cystitis with hematuria Condition: Fair
[2018-01-11] MEDS ORDERED: INSULIN REGULAR HUMAN 60 UNIT SQ SCH (07:30)
--- NOTE | 2018-01-11 09:51 | ASMTCMCOM ---
CM Note CM Note Notes: Chart reviewed, Patient admitted through the ED. He lives with his . He is encephalopathic. Needs TBD. CM to follow. Plan: TBD Date Signed: 01/11/2018 09:50 AM Electronically Signed By:Mary Ann Valerio RN
[2018-01-11] MEDS: INSULIN REGULAR HUMAN SQ SCH (11:14)
[2018-01-11] MEDS: LACTULOSE 20 GM/30 ML UDCUP PO SCH ×3 (11:14→21:00)
[2018-01-11] MEDS: INSULIN REGULAR HUMAN 100 UNIT/ML UNIT SC SCH ×4 (11:15→20:56)
[2018-01-11] MEDS ORDERED: LACTULOSE 200 GM in SODIUM CL IRRIG SOLUTION 700 ML PR SCH (12:00)
--- NOTE | 2018-01-11 15:13 | HOSPPROG ---
Hospitalist Progress Note Assessment/Plan: * Hepatic encephalopathy -too somnolent this am for oral lactulose -s/p lactulose enema with good result - change back to PO * Cryptogenic cirrhosis s/p TIPS * UTI -IV ceftriaxone pending culture * ARF -holding Lasix/spironolactone * Obesity BMI 38 with STEFANIE - CPAP non-compliant * DM -holding U500 while NPO * PCM Subjective: Very somnolent this am, not able to take PO. Lactulose enema with good result - woke up shortly after administration Objective: Vital Signs Temp Pulse Resp BP Pulse Ox 36.0 C 63 19 104/51 L 96 01/11/18 11:30 01/11/18 11:30 01/11/18 11:30 01/11/18 11:30 01/11/18 11:30 Laboratory Results 01/10/18 17:30 01/11/18 03:09 01/10/18 01/11/18 01/12/18 05:59 05:59 05:59 Intake Total 2600 Balance 2600 PT 20.0 SEC (12.0-15.0) H 01/10/18 17:30 INR 1.69 (0.83-1.16) H 01/10/18 17:30 EKG viewed, my personal interpretation is - paced rhythm Old chart reviewed - hospitalized within the last month for volume overload - Physical Exam Constitutional: no apparent distress, appears nourished, not in pain Cardiovascular: regular rate and rhythym, no murmur, rub, or gallop Respiratory: no respiratory distress, no rales or rhonchi, clear to auscultation Gastrointestinal: normoactive bowel sounds, soft, non-tender abdomen, no palpable masses Skin: no rashes or abrasions, no fluctuance, no induration Neurologic: No AAOx3 Psychiatric: encephalopathic, poor insight, poor judgement, poor memory, No interacting appropriately, No agitated ICD10 Worksheet Patient Problems: Problems Problem Status Onset Acute kidney injury Acute Encephalopathy acute Acute Urinary tract infection Acute Altered mental status Acute Anasarca Acute Anemia Acute Ascites Acute Cellulitis Acute Cirrhosis Acute Congestive heart failure Acute Dyspnea Acute Edema Acute Fluid overload Acute Hyperammonemia Acute Jaundice Acute Liver failure Acute Nausea & vomiting Acute Renal insufficiency Acute Sepsis Acute Thrombocytopenia Acute
[2018-01-11] MEDS ORDERED: PNEUMOCOCCAL 0.5ML VACCINE VIAL IM ONE (19:37)
[2018-01-11] MEDS: RIFAXIMIN 550 MG TAB PO SCH (20:56)
[2018-01-12] MEDS ORDERED: diphenhydrAMINE 25 MG CAP PO PRN (02:32)
[2018-01-12 04:18] LABS: PLATELET COUNT 73 10^3/uL (150-400)
[2018-01-12] MEDS: INSULIN REGULAR HUMAN 100 UNIT/ML UNIT SC SCH ×4 (08:17→23:09)
[2018-01-12] MEDS: LACTULOSE 20 GM/30 ML UDCUP PO SCH ×3 (08:18→23:03)
[2018-01-12] MEDS: RIFAXIMIN 550 MG TAB PO SCH ×2 (08:18→23:03)
--- NOTE | 2018-01-12 10:51 | PDMN ---
Medical Necessity Medical necessity: MCG 570 liver disease complications : acute encephalopathy- hepatic encephalopathy, with UTI, cirrhosis, MANJULA, Cr 1.9, Macrocytic anemia, stable but following, recent falls, HX STEFANIE, non compliant with CPAP, HX compensated CHF, DM2, hyperlipidemia, cryptogenic cirrhosis S/P TIPS, pt req. IV abx for UTI, IVF, PT eval for falls continue to monitor and eval.
--- NOTE | 2018-01-12 12:32 | ASMTCMCOM ---
CM Note CM Note Notes: Per hospitalist, patient needs another day to clear mentally and will then work with therapies to determine needs. At baseline, his cares for him and there is a grandson nearby. More help in the home may be warranted. I spoke with patient's about home health - she says a nurse comes once a month. She couldn't remember the name of the agency, but will bring the business card tomorrow. She is interested in PT,OT, SW, CHANNEL OPENER, as well, but can't afford any private duty caregivers. Case Management will follow. Date Signed: 01/12/2018 12:31 PM Electronically Signed By:Lynn Cast RN
--- NOTE | 2018-01-12 15:15 | HOSPPROG ---
Hospitalist Progress Note Assessment/Plan: * Hepatic encephalopathy - worsened s/p TIPS -improving - back to PO lactulose -add rifaximin * Cryptogenic cirrhosis s/p TIPS * UTI -IV ceftriaxone pending culture * ARF -restart Lasix/spironolactone * Obesity BMI 38 with STEFANIE - CPAP non-compliant * DM -restart U500 * PCM Subjective: much better but still not baseline, still confused Objective: Vital Signs Temp Pulse Resp BP Pulse Ox 30.9 C L 86 18 136/39 H 99 01/12/18 11:04 01/12/18 11:01 01/12/18 11:01 01/12/18 11:01 01/12/18 11:01 Laboratory Results 01/12/18 04:00 01/12/18 04:00 01/11/18 01/12/18 01/13/18 05:59 05:59 05:59 Intake Total 2600 2100 Output Total 200 465 Balance 2600 1900 -465 PT 20.0 SEC (12.0-15.0) H 01/10/18 17:30 INR 1.69 (0.83-1.16) H 01/10/18 17:30 - Physical Exam Constitutional: no apparent distress, appears nourished, not in pain Cardiovascular: regular rate and rhythym, no murmur, rub, or gallop Respiratory: no respiratory distress, no rales or rhonchi, clear to auscultation Gastrointestinal: normoactive bowel sounds, soft, non-tender abdomen, no palpable masses Skin: no rashes or abrasions, no fluctuance, no induration Neurologic: No AAOx3 Psychiatric: encephalopathic, poor insight, poor judgement, poor memory, No interacting appropriately ICD10 Worksheet Patient Problems: Problems Problem Status Onset Acute kidney injury Acute Encephalopathy acute Acute Urinary tract infection Acute Altered mental status Acute Anasarca Acute Anemia Acute Ascites Acute Cellulitis Acute Cirrhosis Acute Congestive heart failure Acute Dyspnea Acute Edema Acute Fluid overload Acute Hyperammonemia Acute Jaundice Acute Liver failure Acute Nausea & vomiting Acute Renal insufficiency Acute Sepsis Acute Thrombocytopenia Acute
[2018-01-12] MEDS: INSULIN REGULAR HUMAN SQ SCH ×2 (16:36→23:07)
[2018-01-13 04:40] LABS: HEPATITIS C ANTIBODY TOTAL NEGATIVE (NEGATIVE)
[2018-01-13] MEDS: INSULIN REGULAR HUMAN 100 UNIT/ML UNIT SC SCH ×4 (07:59→23:33)
[2018-01-13] MEDS: LACTULOSE 20 GM/30 ML UDCUP PO SCH ×3 (09:02→23:34)
[2018-01-13] MEDS: SPIRONOLACTONE 50 MG TAB PO SCH (09:02)
[2018-01-13] MEDS: FUROSEMIDE 80 MG TAB PO SCH (09:02)
[2018-01-13] MEDS: RIFAXIMIN 550 MG TAB PO SCH ×2 (09:02→23:34)
[2018-01-13] MEDS: INSULIN REGULAR HUMAN SQ SCH ×3 (09:03→23:35)
--- NOTE | 2018-01-13 12:44 | ASMTCMCOM ---
CM Note CM Note Notes: 01/13/2018 Case Management Note Met w/pt and to discuss d/c needs. Pt is current with [facility] and has been seen twice by their VIRTUALIZATION ARCHITECT. Faxed updates to [facility]. Pt primary MD is Dr. Conrad in [place]. Pt is also seen by Dr. Matthew at [facility]. Pt agreeable to Home Care. Chose [facility]. Notified via phone. [facility] accepted pt. Case Management d/c poc: [facility] RN PT with [facility]. Case Management to follow. Date Signed: 01/13/2018 12:43 PM Electronically Signed By:Yahaira Abdul RN
--- NOTE | 2018-01-13 13:55 | ASMTCMCOM ---
CM Note CM Note Notes: 01/13/2018 Case Management Note Pt lives outside [facility]. [facility] unable to service. [facility] accepted pt. Case Management d/c poc: [facility] plus resumption of [facility] Palliative Team. Case Management to follow. Date Signed: 01/13/2018 01:54 PM Electronically Signed By:Yahaira Abdul RN
--- NOTE | 2018-01-13 14:38 | HOSPPROG ---
Hospitalist Progress Note Assessment/Plan: * Hepatic encephalopathy - worsened s/p TIPS -increased PO lactulose -add rifaximin -still encephalopathic and not safe for home -hopeful continued improvement and DC home tomorrow -SNF refused * Cryptogenic cirrhosis s/p TIPS, suspect RICO * UTI - GBS -IV ceftriaxone - change to PO Keflex * ARF due to hypovolemia -restart Lasix/spironolactone * Obesity BMI 38 with STEFANIE - CPAP non-compliant * DM -restart U500 * PCM Subjective: Still confused but much better, daily improvement is dramatic Objective: Vital Signs Temp Pulse Resp BP Pulse Ox 37.1 C 73 12 115/57 L 97 01/13/18 11:29 01/13/18 11:29 01/13/18 11:29 01/13/18 11:29 01/13/18 11:29 Microbiology 01/10/18 17:25 Urine Culture - Final Urine,Clean Catch Strep Agalactiae Group B Laboratory Results 01/12/18 04:00 01/13/18 03:02 01/12/18 01/13/18 01/14/18 05:59 05:59 05:59 Intake Total 2100 1360 Output Total 200 1510 Balance 1900 -150 PT 20.0 SEC (12.0-15.0) H 01/10/18 17:30 INR 1.69 (0.83-1.16) H 01/10/18 17:30 - Physical Exam Constitutional: no apparent distress, appears nourished, not in pain Cardiovascular: regular rate and rhythym, no murmur, rub, or gallop Respiratory: no respiratory distress, no rales or rhonchi, clear to auscultation Gastrointestinal: normoactive bowel sounds, soft, non-tender abdomen, no palpable masses Skin: no rashes or abrasions, no fluctuance, no induration Neurologic: AAOx3, sensation intact bilaterally Psychiatric: interacting appropriately, not anxious, encephalopathic, poor insight, poor judgement, poor memory, No agitated ICD10 Worksheet Patient Problems: Problems Problem Status Onset Acute kidney injury Acute Encephalopathy acute Acute Urinary tract infection Acute Altered mental status Acute Anasarca Acute Anemia Acute Ascites Acute Cellulitis Acute Cirrhosis Acute Congestive heart failure Acute Dyspnea Acute Edema Acute Fluid overload Acute Hyperammonemia Acute Jaundice Acute Liver failure Acute Nausea & vomiting Acute Renal insufficiency Acute Sepsis Acute Thrombocytopenia Acute
[2018-01-14] MEDS ORDERED: CEPHALEXIN 500 MG CAP PO SCH (09:00)
[2018-01-14] MEDS: INSULIN REGULAR HUMAN 100 UNIT/ML UNIT SC SCH ×2 (09:41→14:01)
[2018-01-14] MEDS: RIFAXIMIN 550 MG TAB PO SCH (10:17)
[2018-01-14] MEDS: INSULIN REGULAR HUMAN SQ SCH ×2 (10:17→16:22)
[2018-01-14] MEDS: LACTULOSE 20 GM/30 ML UDCUP PO SCH ×2 (10:17→16:22)
[2018-01-14] MEDS: FUROSEMIDE 80 MG TAB PO SCH (10:24)
[2018-01-14] MEDS: SPIRONOLACTONE 50 MG TAB PO SCH (10:24)
--- NOTE | 2018-01-14 14:30 | HOSPPROG ---
Hospitalist Progress Note Assessment/Plan: 62 yo M w cirrhosis Hepatic encephalopathy - worsened s/p TIPS -increased PO lactulose -add rifaximin -improved today -hopeful continued improvement -SNF refused VT- 10 beats, no CP will check ekg and trop, can go if neg d/w dr deutsch Cryptogenic cirrhosis s/p TIPS, suspect RICO UTI - GBS -IV ceftriaxone - change to PO Keflex ARF due to hypovolemia -restart Lasix/spironolactone Obesity BMI 38 with STEFANIE - CPAP non-compliant DM -restart U500 PCM dispo: home today >30 minutes Subjective: anxious for dc. per , at baseline Objective: Vital Signs Temp Pulse Resp BP Pulse Ox 36.7 C 71 18 104/58 L 100 01/14/18 12:00 01/14/18 12:00 01/14/18 12:00 01/14/18 12:00 01/14/18 12:00 Laboratory Results 01/12/18 04:00 01/14/18 04:23 01/13/18 01/14/18 01/15/18 05:59 05:59 05:59 Intake Total 1360 1130 480 Output Total 1510 800 500 Balance -150 330 -20 PT 20.0 SEC (12.0-15.0) H 01/10/18 17:30 INR 1.69 (0.83-1.16) H 01/10/18 17:30 - Physical Exam Constitutional: no apparent distress, appears nourished Eyes: PERRL, anicteric sclera Ears, Nose, Mouth, Throat: moist mucous membranes, hearing normal Cardiovascular: regular rate and rhythym, no murmur, rub, or gallop Respiratory: no respiratory distress, no rales or rhonchi Gastrointestinal: normoactive bowel sounds, soft, non-tender abdomen Genitourinary: no bladder fullness, No burris in urethra Skin: warm, normal color Musculoskeletal: full muscle strength, no muscle tenderness Neurologic: AAOx3, sensation intact bilaterally Psychiatric: interacting appropriately, not anxious Lymph, Heme, Immunologic: no cervical LAD ICD10 Worksheet Patient Problems: Problems Problem Status Onset Acute kidney injury Acute Encephalopathy acute Acute Urinary tract infection Acute Altered mental status Acute Anasarca Acute Anemia Acute Ascites Acute Cellulitis Acute Cirrhosis Acute Congestive heart failure Acute Dyspnea Acute Edema Acute Fluid overload Acute Hyperammonemia Acute Jaundice Acute Liver failure Acute Nausea & vomiting Acute Renal insufficiency Acute Sepsis Acute Thrombocytopenia Acute
--- NOTE | 2018-01-14 15:18 | CPEKG ---
Heart Rate: 67 RR Interval: 896 P-R Interval: 208 QRSD Interval: 152 QT Interval: 456 QTC Interval: 482 P [place]: -12 QRS [place]: -71 T Wave [place]: 76 EKG Severity - ABNORMAL ECG - EKG Impression: SINUS RHYTHM EKG Impression: RBBB AND LAFB EKG Impression: LEFT VENTRICULAR HYPERTROPHY Electronically Signed By: Leo Stevenson 19-Jan-2018 16:45:19
[2018-01-14 16:17] VITALS: BP 115/57
--- NOTE | 2018-01-14 16:58 | GDS ---
[f rep st] DISCHARGE SUMMARY DISCHARGE DIAGNOSES: 1. Hepatic encephalopathy. 2. Urinary tract infection. 3. Encephalopathy. 4. Ten beats of ventricular tachycardia. Please see admission history and physical by Dr. Destiny Tony. The patient presented with encephal opathy. He had not had a bowel movement in a number of days. He was confused. He was clinically dr y. He was volume resuscitated, treated for UTI, given lactulose until he began having bowel movement s and the patient is functioning better and per his , at his baseline. PT/OT recommended SNF; they declined. The patient, overnight on telemetry, had 10 beats of nonsustained ventricular tachycardia. He had no cardiac symptoms. He had an EKG that is abnormal at baseline, unchanged from his prior. Troponin i s negative. He is discharged home. /[id number]/MODL
--- NOTE | 2018-01-14 17:00 | ASMTLACE ---
LACE Length of stay for Answers: 4-6 days current admission Acuity / Level of Answers: Yes Care: Did the patient have an inpatient admission? Comorbidities - select Answers: Moderate or severe liver all that apply or renal disease # of Emergency department Answers: 1-2 visits in the last 6 months Score: 12 Date Signed: 01/14/2018 05:00 PM Electronically Signed By:Yahaira Abdul RN
--- NOTE | 2018-01-14 17:11 | PDIAF ---
- Diagnosis Diagnosis: hepatic encephalopathy Code Status: Full Code - Medication Management Discharge Medications: Medications to Continue on Transfer Furosemide [Lasix] 80 mg PO DAILY 01/10/18 [Last Taken 01/09/18] Insulin Regular, Human [Humulin R U-500 Kwikpen] 60 unit SQ AC 01/10/18 [Last Taken 01/09/18] Lactulose 30 ml PO DAILY 01/10/18 [Last Taken 01/09/18] Spironolactone [Aldactone] 200 mg PO DAILY 01/10/18 [Last Taken 01/09/18] Cephalexin [Keflex (*)] 500 mg PO BID #8 cap 01/14/18 [Last Taken Unknown] Rifaximin [Xifaxan] 550 mg PO BID #60 tab 01/14/18 [Last Taken Unknown] Discharge Medications: Refer to the Discharge Home Medication list for PRN reason. - Orders Services needed: Home Care, Registered Nurse, Physical Therapy, Occupational Therapy Home Care Face to Face: I certify that this patient was under my care and that I had the required [id number] encounter meeting the encounter requirements on the discharge day. My findings support the fact that the patient is homebound as defined in Home Care Face to Face Continued: CMS Chapter 7 Medicare Benefits Manual 30.1.1 , The condition of the patient is such that there exists a normal inability to leave home and consequently, leaving home would require a considerable and taxing effort. Isolation Type: None Diet Texture: Regular Texture Diet, Thin Liquids, Meds Whole w/Liquids - Follow Up Care Current Providers and Referrals: JU ANTONY [Other]
--- NOTE | 2018-01-15 09:39 | ASDISCHSUM ---
Discharge Information Plan Status:Home with Home Health Medically Cleared to Leave:01/14/2018 Discharge Date:01/14/2018 05:18 PM D/C Disposition:Home Health Service [facility] D/C Disposition:Home, Routine, Self-Care Projected Discharge Date:01/14/2018 11:00 AM Transportation at D/C: Discharge Delay Reason: Follow-Up Date:01/14/2018 11:00 AM Discharge Slot: Final Diagnosis: Placement Information Referral Type:*Home Health Care Services Referral ID:[id number] Provider Name:[facility] ([facility]) Address 1:[address] [address] Address 2: City:[place] Selection Factors: State:[place] Referral Type:Palliative Care Referral ID:[id number] Provider Name:[facility] Address 1:[address] Phone Number: Address 2: Fax Number: [facility]:[place] Selection Factors: State:[place] Patient Contact Information Contact Name:ANDREA Relationship:Life Partner Address:[address] [place] [address] City:[place] [facility] Phone: State/Zip Code:[place] [address] Email: Financial Information Financial Class:Medicare Advantage Plans Primary Plan Desc:[place] [employer] Primary Plan Number:[id number] Secondary Plan Desc: Secondary Plan Number: Assessment Information LACE LACE Length of stay for Answers: 4-6 days current admission Acuity / Level of Answers: Yes Care: Did the patient have an inpatient admission? Comorbidities - select Answers: Moderate or severe liver all that apply or renal disease # of Emergency department Answers: 1-2 visits in the last 6 months Score: 12 Date Signed: 01/14/2018 05:00 PM Electronically Signed By:Yahaira Abdul RN [facility] CM Progress Note CM Note CM Note Notes: Chart reviewed, Patient admitted through the ED. He lives with his . He is encephalopathic. Needs TBD. CM to follow. Plan: TBD Date Signed: 01/11/2018 09:50 AM Electronically Signed By:Mary Ann Valerio RN [facility] CM Progress Note CM Note CM Note Notes: Per hospitalist, patient needs another day to clear mentally and will then work with therapies to determine needs. At baseline, his cares for him and there is a grandson nearby. More help in the home may be warranted. I spoke with patient's about home health - she says a nurse comes once a month. She couldn't remember the name of the agency, but will bring the business card tomorrow. She is interested in PT,OT, SW, SOD CUTTER, as well, but can't afford any private duty caregivers. Case Management will follow. Date Signed: 01/12/2018 12:31 PM Electronically Signed By:Lynn Cast RN [facility] CM Progress Note CM Note CM Note Notes: 01/13/2018 Case Management Note Met w/pt and to discuss d/c needs. Pt is current with [facility] and has been seen twice by their LOOM STARTER. [facility]. Pt primary MD is Dr. Conrad in [place]. Pt is also seen by Dr. Matthew at [facility]. Pt agreeable to Home Care. Chose [facility]. Notified via phone. [facility] accepted pt. Case Management d/c poc: [facility] RN PT with [facility]. Case Management to follow. Date Signed: 01/13/2018 12:43 PM Electronically Signed By:Yahaira Abdul RN [facility] CM Progress Note CM Note CM Note Notes: 01/13/2018 Case Management Note Pt lives outside [facility]. [facility] unable to service. [facility] accepted pt. Case Management d/c poc: [facility] plus resumption of [facility]. Case Management to follow. Date Signed: 01/13/2018 01:54 PM Electronically Signed By:Yahaira Abdul RN Case Management Discharge Plan Note Case Management Discharge Discharge Order Complete? Answers: Yes Patient to Obtain Answers: via Family Medications Transportation Arranged Answers: Family/Friends Faxed Final Orders Answers: Yes Agency/Facility Transfer Answers: Yes Report Printed & Faxed to Receiving Agency Family Notified Answers: Yes Notes: in room Discharge Comments Notes: Pt discharged on 01/14/[address] [facility] and [facility] to follow. transported home. Faxed final orders to both agencies. Date Signed: 01/15/2018 09:38 AM Electronically Signed By:Yahaira Abdul RN Intervention Information Intervention Type:*IM-Signed Date of Service:01/13/2018 03:11 PM Patient Type:Inpatient Staff Member:Keily Bustillos Hours: Discipline: Severity: Comment:
--- NOTE | 2018-01-15 09:39 | ASMTDCNOTE ---
Case Management Discharge Discharge Order Complete? Answers: Yes Patient to Obtain Answers: via Family Medications Transportation Arranged Answers: Family/Friends Faxed Final Orders Answers: Yes Agency/Facility Transfer Answers: Yes Report Printed & Faxed to Receiving Agency Family Notified Answers: Yes Notes: in room Discharge Comments Notes: Pt discharged on 01/14/2018 home with [facility] and [facility] to follow. transported home. Faxed final orders to both agencies. Date Signed: 01/15/2018 09:38 AM Electronically Signed By:Yahaira Abdul RN
== END 2018-01-14 17:18 | disposition home health service (06) | DRG 441 ==
LOC: F2W 18:15
PROVIDERS: ADMIT Internal Medicine; ATTEND Internal Medicine
DX: K72.90 Hepatic failure, unspecified without coma (principal); G93.49 Other encephalopathy; N39.0 Urinary tract infection, site not specified; I47.2 Ventricular tachycardia; I11.0 Hypertensive heart disease with heart failure; I50.30 Unspecified diastolic (congestive) heart failure; E11.9 Type 2 diabetes mellitus without complications; E88.81 Metabolic syndrome and other insulin resistance; G47.33 Obstructive sleep apnea (adult) (pediatric); K74.69 Other cirrhosis of liver; E78.5 Hyperlipidemia, unspecified; E66.9 Obesity, unspecified; Z68.38 Body mass index [BMI] 38.0-38.9, adult; Z91.19 Patient's noncompliance with other medical treatment and regimen; Z87.820 Personal history of traumatic brain injury; Z23 Encounter for immunization
CPT/HCPCS: 82435-PO; 82565-PO; 82947-PO; 84132-PO; 84295-PO; 84520-PO; 85014-PO; 92610-GN; 97116-GP; 97163-GP; 97166-GO; 97530-GP; 97535-GO; G0009; G0472; G8978-GP-CL; G8979-GP-CI; G8987-GO-CL; G8988-GO-CJ; G8996-GN-CI; G8997-GN-CI; G8998-GN-CI; J0696; J1815